=== PATIENT | female | born 1960 | race Caucasian/White ===

== ENCOUNTER 2020-07-14 13:34 | Outpatient (REF) | payer OTHER, SELFPAY ==
--- NOTE | ~2020-07-14 | US_ITS ---
EXAMINATION: ANKLE-BRACHIAL INDICES ARTERIAL DUPLEX BILATERAL LEGS CLINICAL INFORMATION: Peripheral vascular disease. COMPARISON: 07/16/2019. TECHNIQUE: Ankle-brachial indices were obtained. Duplex Doppler of the bilateral lower extremity arterial systems was performed. FINDINGS: RIGHT: Ankle-brachial index: Nondiagnostic. The brachial blood pressure was over 200. Duplex exam: Velocities in cm/sec and phasicity as well as the presence of plaque are reported below. An SFA stent is present. Severe distal runoff is noted in the posterior tibial artery with mild disease elsewhere. Common Femoral: Moderate plaque causing mild stenosis. 177 cm/s. Biphasic waveform. Profunda Femoris: Mild plaque causing mild stenosis. 199 cm/s. Biphasic waveform. Proximal SFA: Patent stent. 122 cm/s. Biphasic waveform. Mid SFA: Patent stent. 64 cm/s. Triphasic waveform. Distal SFA: Patent stent. 116 cm/s. Triphasic waveform. Popliteal: Moderate plaque causing moderate stenosis. 208 cm/s. Triphasic waveform. Posterior Tibial: Occluded. LEFT: Ankle-brachial index: Nondiagnostic. The brachial blood pressure was over 200. Duplex exam: Velocities in cm/sec and phasicity as well as the presence of plaque are reported below. Common Femoral: Mild plaque causing mild stenosis. 161 cm/s. Biphasic waveform. Profunda Femoris: Moderate plaque causing mild to moderate stenosis. 195 cm/s. Biphasic waveform. Proximal SFA: Occluded. Mid SFA: Occluded Distal SFA: Occluded Popliteal: Moderate plaque causing mild stenosis. 236 cm/s. Biphasic waveform. Posterior Tibial: 91 cm/s. Biphasic waveform. There is a femoropopliteal bypass graft. The proximal anastomosis is patent. The proximal, mid, and distal segments of the graft are patent. Mild stenosis at the distal anastomosis. US/US TAWNY complete IMPRESSION: Ankle-brachial indices could not be calculated due to elevated blood pressure over 200. Dr. Parikh's office was notified. Right lower extremity: Patent SFA stent. Moderate popliteal artery disease. Occluded posterior tibial artery. Left lower extremity: Patent femoral popliteal bypass graft with mild stenosis at the distal anastomosis. Mild popliteal and posterior tibial disease.
--- NOTE | ~2020-07-14 | US_ITS ---
EXAMINATION: ANKLE-BRACHIAL INDICES ARTERIAL DUPLEX BILATERAL LEGS CLINICAL INFORMATION: Peripheral vascular disease. COMPARISON: 07/16/2019. TECHNIQUE: Ankle-brachial indices were obtained. Duplex Doppler of the bilateral lower extremity arterial systems was performed. FINDINGS: RIGHT: Ankle-brachial index: Nondiagnostic. The brachial blood pressure was over 200. Duplex exam: Velocities in cm/sec and phasicity as well as the presence of plaque are reported below. An SFA stent is present. Severe distal runoff is noted in the posterior tibial artery with mild disease elsewhere. Common Femoral: Moderate plaque causing mild stenosis. 177 cm/s. Biphasic waveform. Profunda Femoris: Mild plaque causing mild stenosis. 199 cm/s. Biphasic waveform. Proximal SFA: Patent stent. 122 cm/s. Biphasic waveform. Mid SFA: Patent stent. 64 cm/s. Triphasic waveform. Distal SFA: Patent stent. 116 cm/s. Triphasic waveform. Popliteal: Moderate plaque causing moderate stenosis. 208 cm/s. Triphasic waveform. Posterior Tibial: Occluded. LEFT: Ankle-brachial index: Nondiagnostic. The brachial blood pressure was over 200. Duplex exam: Velocities in cm/sec and phasicity as well as the presence of plaque are reported below. Common Femoral: Mild plaque causing mild stenosis. 161 cm/s. Biphasic waveform. Profunda Femoris: Moderate plaque causing mild to moderate stenosis. 195 cm/s. Biphasic waveform. Proximal SFA: Occluded. Mid SFA: Occluded Distal SFA: Occluded Popliteal: Moderate plaque causing mild stenosis. 236 cm/s. Biphasic waveform. Posterior Tibial: 91 cm/s. Biphasic waveform. There is a femoropopliteal bypass graft. The proximal anastomosis is patent. The proximal, mid, and distal segments of the graft are patent. Mild stenosis at the distal anastomosis. US/US arterial duplex LE BI IMPRESSION: Ankle-brachial indices could not be calculated due to elevated blood pressure over 200. Dr. Parikh's office was notified. Right lower extremity: Patent SFA stent. Moderate popliteal artery disease. Occluded posterior tibial artery. Left lower extremity: Patent femoral popliteal bypass graft with mild stenosis at the distal anastomosis. Mild popliteal and posterior tibial disease.
== END 2020-07-14 13:35 | disposition home or self-care (01) ==
LOC: HO.US 13:34
PROVIDERS: Visit Provider Surgery Vascular Surgery
DX: I73.9 Peripheral vascular disease, unspecified (principal)
CPT/HCPCS: 93923; 93925

== ENCOUNTER → 2020-08-19 08:48 | Outpatient (BNVA) | payer OTHER, SELFPAY | PROVIDERS: PCP Physician Assistant Medical; Visit Provider Surgery Vascular Surgery | DX: I73.9 Peripheral vascular disease, unspecified (principal); F17.210 Nicotine dependence, cigarettes, uncomplicated; Z88.6 Allergy status to analgesic agent; Z88.8 Allergy status to other drugs, medicaments and biological substances | CPT/HCPCS: 99212 ==

== ENCOUNTER 2021-09-05 08:13 | Outpatient (REF) | payer OTHER, SELFPAY ==
--- NOTE | ~2021-09-05 | US_ITS ---
EXAMINATION: EXAMINATION: Noninvasive assessment of the arteries of both lower extremities to include a PVR exam limited (1-2 levels) and TAWNY, bilateral. ? Heaven Durham M.D., Ph.D. CLINICAL INFORMATION: Peripheral vascular disease COMPARISON: None TECHNIQUE: The ankle/brachial indices of the distal posterior tibial and the dorsalis pedis arteries were obtained of the lower extremity arterial system bilaterally; along with pressures and pulse volume recordings at the ankle and duplex Doppler techniques of the common femoral, proximal femoral and proximal profunda arteries. The study was performed at rest. ? FINDINGS AT REST:? RIGHT LEG: THE RIGHT ANKLE-BRACHIAL INDEX IS: Nondiagnostic as the brachial artery is greater than 200 cm/s. PVR WAVEFORMS: Ankle: Normal DIRECT DUPLEX: Common femoral artery: 142 cm/sec; multiphasic waveform Profunda artery: 151 cm/sec; multiphasic waveform Superficial femoral artery proximal: 125 cm/sec; multiphasic waveform Superficial femoral artery mid portion: 69.9 cm/sec; multiphasic waveform Superficial femoral artery distal: 112 cm/sec; multiphasic waveform Popliteal artery: 86.8 cm/sec; multiphasic waveform Posterior tibial artery: Occluded Peroneal artery: 134 cm/sec; multiphasic waveform There is a patent stent within the right superficial femoral artery. LEFT LEG: THE LEFT ANKLE-BRACHIAL INDEX IS: Nondiagnostic as the brachial artery is greater than 200 cm/s. PVR WAVEFORMS: Ankle: Normal DIRECT DUPLEX: Common femoral artery: 152 cm/sec; multiphasic waveform Profunda artery: 91.1 cm/sec; multiphasic waveform Superficial femoral artery proximal: Occluded Superficial femoral artery mid portion: Occluded Superficial femoral artery distal: Occluded Popliteal artery: 144 cm/sec; multiphasic waveform Posterior tibial artery: 104 cm/sec; multiphasic waveform Peroneal artery: 122 cm/sec; multiphasic waveform There is a patent femoropopliteal bypass graft. The proximal anastomosis is patent with velocity of 130 cm/s. Where as there was previously demonstrated mild stenosis at the distal aspect of the right pass on the prior study, this is not seen currently where the distal anastomosis measures 70 cm/s and the outflow artery 148 cm/s. ? US/US arterial duplex LE BI IMPRESSION: 1. Unable to calculate ankle brachial indices as the patient's blood pressure in the brachial arteries measure over 200 cm/s. This is unchanged when compared the prior study. 2. Patent right SFA stent. No evidence of in-stent stenosis. 3. Patent left femoropopliteal bypass graft. The prior study demonstrated mild stenosis at the distal anastomosis which is not appreciated on the current study.
== END 2021-09-05 08:14 | disposition home or self-care (01) ==
LOC: HO.US 08:13
PROVIDERS: Visit Provider Surgery Vascular Surgery
DX: I73.9 Peripheral vascular disease, unspecified (principal)
CPT/HCPCS: 93923; 93925

== ENCOUNTER → 2021-09-08 09:47 | Outpatient (BNVA) | payer OTHER, SELFPAY | PROVIDERS: PCP Physician Assistant Medical; Visit Provider Surgery Vascular Surgery | DX: I73.9 Peripheral vascular disease, unspecified (principal) | CPT/HCPCS: 99212 ==

== ENCOUNTER 2021-11-03 16:31 | Outpatient (REF) | payer OTHER, SELFPAY ==
--- NOTE | ~2021-11-03 | XR_ITS ---
EXAMINATION: XR CALCANEUS, RIGHT CLINICAL INFORMATION: Unspecified injury right Achilles tendon. COMPARISON: None. TECHNIQUE: Lateral and axial views of the right calcaneus were obtained. FINDINGS: There are chronic erosive changes involving the retrocalcaneal. No fracture or lytic or sclerotic process seen. There is moderate soft tissue swelling along the retrocalcaneal and calcaneal heel. Also visualized is a soft tissue calcaneal and retrocalcaneal bursa, likely bursitis. The major Achilles tendon is visualized. There is reduction of the ankle mortise and subtalar joint space. XR/XR calcaneus RT min 2V IMPRESSION: Chronic erosive changes along the retrocalcaneal with moderate retrocalcaneal and calcaneal heel soft tissue swelling, likely related to old injury. There is calcification in the retrocalcaneal bursa, especially posterior to the Achilles tendon insertion representing calcific bursitis. The tendon is visualized and likely intact. If clinically indicated, further evaluation with MRI can be performed.
== END 2021-11-03 16:32 | disposition home or self-care (01) ==
LOC: HO.HOSX 16:31
PROVIDERS: Visit Provider Orthopaedic Surgery
DX: S86.001A Unspecified injury of right Achilles tendon, initial encounter (principal)
CPT/HCPCS: 73650; 99212

== ENCOUNTER 2024-05-22 11:08 | Outpatient (AMB) | payer OTHER, SELFPAY ==
--- NOTE | 2024-05-22 11:14 | MHC.OFFVIS ---
Vital Signs 05/22/24 11:16 Height 4 ft 9 in Weight 133 lb BMI 28.8 Intake Visit Reasons: R leg pain Intake Note: pt overdue follow up urgent Right leg pain that started within the past 3 weeks and has worsened. Pt states PCP ordered arterial US @ [facility] on 05/28/24. Pt has Hx of Left fem-pop bypass 07/14/20. Pt states ortho had difficulty getting right foot pedal pulses Apparel Manager Required: No Accompanied by: Self / Same As Patient Allergies MIKAELA Inhibitors Allergy (Intermediate, Verified 05/22/24 11:24) hyperkalemia methadone Allergy (Mild, Verified 05/22/24 11:24) Hives atorvastatin Allergy (Unknown, Verified 05/22/24 11:18) facial swelling, rash propoxyphene [From DARVOCET-N] Allergy (Unknown, Verified 05/22/24 11:18) ITCHY RASH HPI HPI R leg pain: Details: The patient is a 63-year-old female presenting with right leg pain exacerbated over the last three weeks. She previously underwent vascular interventions, including a femoral to popliteal bypass on the left and right superficial femoral artery stenting. Symptoms have now escalated to a point causing significant ambulatory limitations, requiring a walker. Despite topical treatments and intervention from an health support specialist, symptom alleviation is inadequate. Smoking remains a current habit, potentially exacerbating vascular issues, though she denies diabetes. She was lost a follow-up after the loss of her and her grandson. She had not had any medical care for the last 2-3 years. She has new onset right lower extremity pain for the last 2-3 months. Now presents to us for vascular evaluation. [facility] Surgical History S/P debridement (08/29/17) S/P debridement (04/21/17) Status post angioplasty S/P angiogram of extremity History of femoropopliteal bypass Hx of cholecystectomy Family History Father No problems noted. Mother No problems noted. Social History Patient Tobacco Use Status: Current everyday Tobacco user Tobacco use type: Cigarette Cigarettes Per Day: 10 Review of Systems Const All systems reviewed & are unremarkable except as noted in HPI and below Reports no additional complaints ENT Reports Normal hearing present Card Denies chest pain, Denies chest pain at rest, Denies chest pain with activity and Denies pedal edema Resp Denies cough GI Denies abdominal pain Musc Denies abnormal gait, Denies muscle cramps and Denies radiating pain into limb Skin/Breast Denies skin ulcer and Denies wounds Neuro Reports Normal hearing present and Denies abnormal gait Psych Reports no additional complaints Physical Exam Vital Signs: BMI result Body Mass Index 28.8 Const General: cooperative, healthy appearing and comfortable Orientation/consciousness: oriented to person, oriented to place and oriented to time HEENT Head: Yes normal to inspection Neck Neck: Yes normal visual inspection Carotids: no bruits Chest Chest palpation & inspection: normal inspection of the chest Resp Effort & Inspection: normal respiratory effort and able to speak in complete sentences Auscultation: clear to auscultation bilaterally, no crackles, no rales, no rhonchi and no wheezes Cardio Other: Bilateral DP signals Rate: regular rate Rhythm: regular rhythm Heart sounds: S1 normal heart sound present and S2 normal heart sound present Bruits: no carotid bruits Peripheral pulses: Peripheral pulses 2+ throughout GI Inspection: Yes normal to inspection Skin Wounds: no wounds Hair: normal Neuro General: oriented to person, oriented to place and oriented to time Cranial nerves: Yes CN's II-XII intact bilaterally and Yes Normal hearing present Cognition (Neuro): normal cognition Motor exam (neuro): 5/5 motor strength present throughout Extrem Other: venous exam: No significant superficial varicosities or spider telangiectasias, minimal edema General: No clubbing, No cyanosis and No edema Psych Appearance: grossly normal Mental Status: mental status grossly normal Speech and movement: Normal speech and movement present Assessment & Plan Assessment & Plan (1) PAD (peripheral artery disease): Comment: February 2018 - left femoral to above knee popliteal bypass June 2017 - right SFA stent Code(s): I73.9 - Peripheral vascular disease, unspecified Category: Medical Plan: I discussed with the patient the likely ongoing progression of her peripheral vascular disease, emphasizing the need for further vascular imaging. We agreed on the importance of an expedited arterial ultrasound to evaluate her right leg. Risks and benefits related to the planned ultrasound, especially juxtaposed against ongoing lifestyle factors like smoking, were addressed. I provided insights into how the ultrasound results could inform future treatment needs and answered her queries regarding symptom management. She will follow up with us after noninvasive testing. Thank you for allowing us to assist in her care. Orders: Orders US arterial duplex LE BI 1 Day I73.9 - Peripheral vascular disease, unspecified Coding Level of Care Code Est Pt Level 4 (71387) Complex EM visit Add On G2211 Diagnoses PAD (peripheral artery disease) I73.9
[2024-05-22 11:16] VITALS: BMI 28.8
--- OUTSIDE RECORDS SUMMARY | 2024-05-22 13:41 | XMS_ITS | Clinical Summary ---
Author Organization [place] [facility] Address [address] [place] [address] Phone Care Team Providers Care Telemarketer Name Role Phone [facility] Un[facility] [phone] NATI HEAD Primary Care Provider [phone] Reason for Visit and Chief Complaint Post Op Visit/Follow Up Plan of Treatment Pending Tests Order Diagnosis Results Due Ordering P fadia Follow Up - Appointment 1 Month Infct fo l a procedure, deep incisional surgical site, subs 01/11/23 Reed Carey MD Last Documented On 3 10:09AM ; [facility] [place] Assessments Includes: Assessments from this encounter No Assessments Recorded Medical Equipment - Implanted Devices Includes: Current Devices No Medical Equipment Recorded Medications Includes: Medications discussed during this encounter and other current Medications Current Medications (continue as prescribed) Ibuprofen Oral Tablet 08/07/2022 Provider: Diagnosis: Last Documented On 3 8:09AM By Dipak Valerio ; [facility] oxyCODONE HCl 5 MG Oral Capsule 07/10/2022 Provider: Diagnosis: Last Documented On 3 9:18AM By Dipak Valerio ; [facility] [place] Tylenol Oral Tablet 07/10/2022 Provider: Diagnosis: Last Documented On 3 9:18AM By Dipak Valerio ; [facility] [place] Medications Administered Includes: Administered Medications from this encounter No Administered Medications Recorded Results Includes: Results discussed during this encounter No Results Recorded For Specified Dates History of Present Illness Includes: History of Present Illness from this encounter No History of Present Illness Recorded Social History No Social History Recorded - Smoking Status Unknown Medical History Includes: Medical History addressed during this encounter No Medical History Recorded Family History Includes: Family History addressed during this encounter No Family History Recorded Review of Systems Includes: Review of Systems from this encounter No Review of Systems Recorded Mental Status Includes: Mental Status from this encounter No Mental Status Recorded Functional Status Includes: Functional Status from this encounter No Functional Status Recorded Physical Exam Includes: Physical Exam from this encounter Encounters Encounter Provider Location Date Check-In Time Check-Out Time Diagnosis Post Op Visit/Follow Up [facility] 10:00AM 10:19AM Insurance Includes: Active Insurance Policies Plan Name Member ID Group # Subscriber Relationship Effect joleen Dates 1 - [employer] Plan [id number] Soni Toure Clinical Notes Includes: Clinical Notes from this encounter * Progress note Date Encounter Last Documented by 01/11/2023 Post Op Visit/Follow Up Last doc umented on 01/11/2023; 10:09 AM, Reed Carey MD; [place] [facility] Current Medication - Ibuprofen Oral Tablet 0 days, 0 refills - oxyCODONE HCl 5 MG Oral Capsule 0 days, 0 refills - Tylenol Oral Tablet 0 days, 0 refills Physical Findings Chief complaint: Follow-up incision and drainage and removal of hardware right ankle History of Present Illness: This is a 62-year-old woman who had ORIF of her right ankle fracture on 06/25/2022. She had persistent wound drainage and I performed removal of hardware and irrigation and debridement of her right ankle wound on 12/22/2022. She was last seen here on 01/04/2023. Some of the sutures were removed but the distal sutures were left in. Her cultures grew Staph Pseudintermedius sensitive to everything except penicillin. She was discharged on cefazolin 2 g IV every 8 hours for 23 days (through 01/18/23). She has no complaints today. She reports that there has been no drainage from the wound. Physical exam: The right ankle wound appears to be healing well. There is no redness. There is no drainage on the bandage from 3 days ago. Neurovascular exam is intact. Imaging: Radiographs of the right ankle from 01/04/2023 are reviewed. The fracture appears to be healed in satisfactory position. No osteolysis is seen. The medial malleolus fracture was treated nonsurgically and there appears to be a fibrous union of that fracture. There is deformity of the posterior calcaneus from prior infection and treatment. Impression: Status post removal of hardware right ankle with wound infection. Plan: The remaining sutures were removed from the wound today. The patient may discontinue the fracture boot. She may be weightbearing as tolerated. She does not yet have an appointment for follow-up with infectious disease and I asked her to call today to get that appointment. She should see infectious disease before the PICC line is removed. I asked her to follow-up in 1 month or sooner if she develops redness, drainage, pain, etc. Plan StartCited - Infct fol a procedure, deep incisional surgical site, subs Follow Up/Appointment: 1 Month EndCited
--- OUTSIDE RECORDS SUMMARY | 2024-05-22 13:41 | XMS_ITS | Clinical Summary ---
Author Organization [place] [facility] Address [address] [place] [address] Phone Care Team Providers Care Manager Creative Services Name Role Phone [facility] Unavailable [phone] NATI HEAD Primary Care Provider [phone] Reason for Visit and Chief Complaint Post Op Visit/Follow Up Plan of Treatment Pending Tests Order Diagnosis Results Due Ordering P fadia Follow Up - Appointment 1 Month Pain due to internal orthopedic prosth dev/grft, init 01/04/23 Sadia Justice MD Last Documented On 3 9:08AM ; [facility] Follow Up - Appointment 1 Week Pain due to internal orthopedic prosth dev/grft, init 01/04/23 Sadia Justice MD Last Documented On 3 9:08AM ; [facility] Assessments Includes: Assessments from this encounter No Assessments Recorded Medical Equipment - Implanted Devices Includes: Current Devices No Medical Equipment Recorded Medications Includes: Medications discussed during this encounter and other current Medications Current Medications (continue as prescribed) Ibuprofen Oral Tablet 08/07/2022 Provider: Diagnosis: Last Documented On 3 8:09AM By Dipak Valerio ; [facility] oxyCODONE HCl 5 MG Oral Capsule 07/10/2022 Provider: Diagnosis: Last Documented On 3 9:18AM By Dipak Valerio ; [facility] Tylenol Oral Tablet 07/10/2022 Provider: Diagnosis: Last Documented On 3 9:18AM By Dipak Valerio ; [facility] Medications Administered Includes: Administered Medications from this [...] Includes: Review of Systems from this encounter Chief complaint: Follow-up ORIF right ankle History of Present Illness: This is a 62-year-old woman who is s/p ORIF of her right ankle on 06/25/2022. SHANTEL ankle and i&D 12/22/22. pain improved. some swelling. getting IV abx. Physical exam: incision healing but distal part still not fully healed. good rom. no drainage. no erythema. Imaging: Radiographs of the right ankle reviewed Impression: Persistent draining wound right ankle status post ORIF right ankle on 06/25/2022. s/p ROM and I&D Plan: continue IV abx. Weightbearing as tolerated. Transition to a boot today. The proximal part of the incision sutures were removed but the distal part of the sutures were left in. Follow-up in 7 to 10 days for removal of the rest of the sutures and wound check.Keep the area clean and dry and covered. Mental Status Includes: Mental Status from this encounter No Mental Status Recorded Functional Status Includes: Functional Status from this encounter No Functional Status Recorded Physical Exam Includes: Physical Exam from this encounter No Physical Exam Recorded Encounters Encounter Provider Location Date Check-In Time Check-Out Time Diagnosis Post Op Visit/Follow Up Sadia Justice MD [facility] 01/05/20 8:00AM 8:37AM Insurance Includes: Active Insurance Policies Plan Name Member ID Group # Subscriber Relationship Effect joleen Dates 1 - [employer] Plan [id number] Soni Toure Clinical Notes Includes: Clinical Notes from this encounter * Progress note Date Encounter Last Documented by 01/04/2023 Post Op Visit/Follow Up Last doc umented on 01/04/2023; 9:08 AM, Sadia Justice MD; [facility] Plan StartCited - Pain due to internal orthopedic prosth dev/grft, init Follow Up/Appointment: 1 Month, 1 Week EndCited User Defined 4 Chief complaint: Follow-up ORIF right ankle History of Present Illness: This is a 62-year-old woman who is s/p ORIF of her right ankle on 06/25/2022. SHANTEL ankle and i&D 12/22/22. pain improved. some swelling. getting IV abx. Physical exam: incision healing but distal part still not fully healed. good rom. no drainage. no erythema. Imaging: Radiographs of the right ankle reviewed Impression: Persistent draining wound right ankle status post ORIF right ankle on 06/25/2022. s/p ROM and I&D Plan: continue IV abx. Weightbearing as tolerated. Transition to a boot today. The proximal part of the incision sutures were removed but the distal part of the sutures were left in. Follow-up in 7 to 10 days for removal of the rest of the sutures and wound check.Keep the area clean and dry and covered.
--- OUTSIDE RECORDS SUMMARY | 2024-05-22 13:41 | XMS_ITS ---
Author Organization [facility] Address [address] [place] [address] Phone Care Team Providers Care Insulation Cutter Name Role Phone [facility] Unavailable [phone] NATI HEAD Primary Care Provider [phone] Plan of Treatment No Plan of Treatment Recorded Assessments Includes: Assessments for all patient encounters No Assessments Recorded Medical Equipment - Implanted Devices Includes: Current and historical Devices No Medical Equipment Recorded Medications Includes: Current and historical Medications Current Medications (continue as prescribed) Ibuprofen Oral Tablet 08/07/2022 Provider: Diagnosis: Last Documented On 3 8:09AM By Dipak Valerio ; [facility] oxyCODONE HCl 5 MG Oral Capsule 07/10/2022 Provider: Diagnosis: Last Documented On 3 9:18AM By Dipak Valerio ; [facility] Tylenol Oral Tablet 07/10/2022 Provider: Diagnosis: Last Documented On 3 9:18AM By Dipak Valerio ; [facility] Medications Administered Includes: Administered Medications in patient's chart No Administered Medications Recorded Vital Signs Includes: Vital Signs from 05/23/2023 through 05/22/2024 Vital Name 06/07/2023 08:10A Blood Pressure Sitting (mmHg) 177/68 Pulse Rate-Sitting (bpm) 80 Temp-Temporal 97.1 Height (in) 59 Weight (lb) 132 Body Mass Index 26.7 Body Surface Area 1.5 Oxygen Saturation (%) 98 Last Documented: On 06/07/2023 8:10AM ; [facility] Results Includes: Results from 05/23/2023 through 05/22/2024 No Results Recorded For Specified Dates History of Present Illness History of Present Illness not supported for this document type No History of Present Illness Recorded Social History No Social History Recorded - Smoking Status Unknown Procedures and Surgical History Includes: Procedures from 05/23/2023 through 05/22/2024 Procedures Code Diagnosis Performing Provider Service Location Service Date X-Ray Exam Of Ankle, minimum of 3 views (Right) [address] Displaced bimalleolar fracture of right lower leg, init Sadia Justice [facility] 06/07/2023 Last Documented On 10:32AM ; [facility] Medical History Includes: Medical History in patient's chart No Medical History Recorded Family History Includes: Family History in patient's chart No Family History Recorded Review of Systems Review of Systems not supported for this document type No Review of Systems Recorded Mental Status No Mental Status Recorded Functional Status No Functional Status Recorded Physical Exam Physical Exam not supported for this document type No Physical Exam Recorded Encounters Includes: Encounters from 05/23/2023 through 05/22/2024 Encounter Provider Location Date Check-In Time Check-Out Time Diagnosis Established Patient Sadia Justice MD [facility] 024 8:20AM 8:42AM Insurance Includes: Active Insurance Policies Plan Name Member ID Group # Subscriber Relationship Effect joleen Dates 1 - [email or web address] Plan [id number] Sonigayla Stylesmedardo Self Clinical Notes Includes: Signed Clinical Notes starting from 01/15/2022 * Progress note Date Encounter Last Documented by 06/07/2023 Established Patient Alphonso stephanijersey hassan on 06/07/2023; 8:47 AM, Sadia Justice MD; [facility] Physical Findings - Vitals taken 06/07/2023 08:10 am BP-Sitting 177/68 mmHg Pulse Rate-Sitting 80 bpm Temp-Temporal 97.1 F Height 59 in Weight 132 lbs Body Mass Index 26.7 kg/m2 Body Surface Area 1.5 m2 Oxygen Saturation 98 % Plan StartCited - Displaced bimalleolar fracture of right lower leg, init Follow Up/Appointment: PRN EndCited User Defined 4 Chief complaint: Follow-up incision and drainage and removal of hardware right ankle History of Present Illness: This is a 62-year-old woman who had ORIF of her right ankle fracture on 06/25/2022. She had persistent wound drainage and we performed removal of hardware and irrigation and debridement of her right ankle wound on 12/22/2022. She was last seen here on 02/28. She has some persistent pain with walking long distances but has had no redness or wound drainage. Main issue seems to be midfoot pain Physical exam: The right ankle wound is closed. There is no redness or drainage. There is no tenderness. Dorsiflexion is limited to 5 degrees. 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 Impression: Status post ORIF right ankle complicated by wound infection treated with antibiotics, debridement and removal of hardware. Plan: Ankle no longer seems to be the main issue. 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 I would like her to go see the dental technologist for additional care. Follow-up with us as needed.
--- OUTSIDE RECORDS SUMMARY | 2024-05-22 13:41 | XMS_ITS | Clinical Summary ---
Author Organization [facility] Address [address] [place] [address] Phone Care Team Providers Care Landscaper Name Role Phone [facility] Unavailable [phone] NATI HEAD Primary Care Provider [phone] Reason for Visit and Chief Complaint Established Patient Plan of Treatment Pending Tests Order Diagnosis Results Due Ordering P fadia Follow Up - Appointment PRN Displace d bimalleolar fracture of right lower leg, init 06/07/23 Sadia Justice MD Last Documented On 4 8:46AM ; [facility] Assessments Includes: Assessments from this encounter No Assessments Recorded Medical Equipment - Implanted Devices Includes: Current Devices No Medical Equipment Recorded Medications Includes: Medications discussed during this encounter and other current Medications Current Medications (continue as prescribed) Ibuprofen Oral Tablet 08/07/2022 Provider: Diagnosis: Last Documented On 3 8:09AM By Dipak Valerio ; [facility] oxyCODONE HCl 5 MG Oral Capsule 07/10/2022 Provider: Diagnosis: Last Documented On 3 9:18AM By Dipak Valerio ; [facility] Tylenol Oral Tablet 07/10/2022 Provider: Diagnosis: Last Documented On 3 9:18AM By Dipak Valerio ; [facility] Medications Administered Includes: Administered Medications from this encounter No Administered Medications Recorded Vital Signs Includes: Vital Signs from this encounter Vital Name 06/07/2023 08:10A Blood Pressure Sitting (mmHg) 177/68 Pulse Rate-Sitting (bpm) 80 Temp-Temporal 97.1 Height (in) 59 Weight (lb) 132 Body Mass Index 26.7 Body Surface Area 1.5 Oxygen Saturation (%) 98 Last Documented: On 06/07/2023 8:10AM ; [facility], Results Includes: Results discussed during this encounter No Results Recorded For Specified Dates History of Present Illness Includes: History of Present Illness from this encounter No History of Present Illness Recorded Social History No Social History Recorded - Smoking Status Unknown Procedures and Surgical History Includes: Procedures from this encounter Procedures Code Diagnosis Performing Provider Service Location Service Date X-Ray Exam Of Ankle, minimum of 3 views (Right) [address]71 Displaced bimalleolar fracture of right lower leg, brad Sadia Justice MD [facility], 06/07/2023 Last Documented On 4 10:32AM ; [facility], Medical History Includes: Medical History addressed during this encounter No Medical History Recorded Family History Includes: Family History addressed during this encounter No Family History Recorded Review of Systems Includes: Review of Systems from this encounter Chief complaint: Follow-up incision and drainage and [...] would like her to go see the weapons electrical engineering officer for additional care. Follow-up with us as needed. Mental Status Includes: Mental Status from this encounter No Mental Status Recorded Functional Status Includes: Functional Status from this encounter No Functional Status Recorded Physical Exam Includes: Physical Exam from this encounter Encounters Encounter Provider Location Date Check-In Time Check-Out Time Diagnosis Established Patient Sadia Justice MD [facility], 024 8:20AM 8:42AM Insurance Includes: Active Insurance Policies Plan Name Member ID Group # Subscriber Relationship Effect joleen Dates 1 - [place] Plan [id number] Soni Toure Clinical Notes Includes: Clinical Notes from this encounter * Progress note Date Encounter Last Documented by 06/07/2023 Established Patient Last alejandra hassan on 06/07/2023; 8:47 AM, Sadia Justice MD; [facility] Physical Findings - Vitals taken 06/07/2023 [...] would like her to go see the weapons electrical engineering officer for additional care. Follow-up with us as needed.
--- OUTSIDE RECORDS SUMMARY | 2024-05-22 13:41 | XMS_ITS | Clinical Summary ---
Author Organization [address] [facility] Address [address] [place] [address] Phone Care Team Providers Care Operating Room Specialist Name Role Phone Benjamin Escalera Primary Care Provider [phone] Allergies Active Allergy Reactions Criticality Noted Date Comments Martir Inhibitors 06/06/2013 hyperkalemia Atorvastatin 05/13/2018 Facial swelling Hydrochlorothiazide 06/06/2013 hypokalemia Methadone 03/14/2006 Other Reaction(s): Hives/Urticaria Medications lamoTRIgine (LaMICtal) 50 mg dispersible tablet Take by mouth. Active losartan-hydroCHL OROthiazide (HYZAAR) 100-25 mg per tablet Take 1 tablet by mouth 1 (one) time each day. 10/05/19 24 Active fluticasone propionate (FLONASE) 50 mcg/actuation nasal spray 2 sprays to each nostril daily 10/05/19 24 Active clopidogreL (PLAVIX) 75 mg tablet Take 1 tablet (75 mg total) by mouth 1 (one) time each day. 10/05/19 24 Active calcium carbonate 1,500 mg (600 mg elemental calcium) tablet Take 1 Tablet by mouth 2 times daily (with meals). 10/05/19 24 Active amLODIPine (NORVASC) 10 mg tablet Take 1 tablet (10 mg total) by mouth 1 (one) time each day. 10/05/19 24 Active atenoloL (TENORMIN) 50 mg tablet Take 1.5 tablets (75 mg total) by mouth 1 (one) time each day. 10/05/19 24 Active cholecalciferol (VITAMIN D-3) 50 mcg (2,000 unit) tablet Take 1 tablet (2,000 Units total) by mouth 1 (one) time each day. 10/05/19 24 Active rosuvastatin (CRESTOR) 10 mg tablet Take 1 tablet (10 mg total) by mouth 1 (one) time each day. 10/05/19 24 Active celecoxib (CeleBREX) 200 mg capsule Take 1 capsule (200 mg total) by mouth 2 (two) times a day. 10/05/19 24 Active mirtazapine (REMERON) 30 mg tablet 05/23/19 24 Active albuterol HFA (PROAIR HFA ; PROVENTIL HFA ; VENTOLIN HFA) 90 mcg/actuation inhaler Inhale 2 Puffs into the lungs every 4 hours as needed for Wheezing for up to 30 days. 06/03/19 23 Active umeclidinium-luke nteroL (ANORO ELLIPTA) 62.5-25 mcg/actuation inhaler Inhale 1 Puff into the lungs daily. 10/13/19 22 Active ipratropium-albut Paolo (DUONEB) 0.5-2.5 mg/3 mL nebulizer solution Inhale 3 mL into the lungs 4 times daily. 01/12/20 21 Active medical supply, miscellaneous (MISCELLANEOUS MEDICAL SUPPLY MIS) SPACER DEVICE- Use with inhaler 08/18/19 20 Active BABY ASPIRIN ORAL Take 1 Tab by mouth daily. Active ARIPiprazole (ABILIFY) 5 mg tablet Take 1 tablet (5 mg total) by mouth 1 (one) time each day. 02/04/20 24 Active escitalopram (LEXAPRO) 10 mg tablet Take 1 tablet (10 mg total) by mouth 1 (one) time each day. Active LORazepam (ATIVAN) 1 mg tabletIndications :Anxiety and depression,Essent ial hypertension, benign,Hyperchole sterolemia,Obstru ctive sleep apnea,PVD (peripheral vascular disease) ([facility] V24),Tobacco use disorder,Chronic obstructive pulmonary disease, unspecified COPD type ([facility] V24, CMS/HCC V28),Osteopenia, unspecified location Take 1 tablet (1 mg total) by mouth every 8 (eight) hours if needed for anxiety. Max Daily Amount: 3 mg 84 tablet 02/11/19 25 Active nystatin (MYCOSTATIN) 100,000 unit/gram powder Apply to rash under breast 2-3 times a day for 2 weeks 15 g 04/08/19 25 Active ibuprofen (ADVIL,MOTRIN) 800 mg tablet Take 1 tablet (800 mg total) by mouth 3 (three) times a day. 90 each 04/25/19 25 025 Active spironolactone (ALDACTONE) 25 mg tablet TAKE ONE TABLET DAILY 30 tablet 5 05/06/19 25 Active spironolactone (ALDACTONE) 25 mg tablet Take 1 tablet (25 mg total) by mouth 1 (one) time each day. 11/02/19 24 025 Discontinued Hospital, Clinic, or Other Facility Administered Medication Ordered Dose Route Frequency Start Date End Date Status lidocaine (PF) (XYLOCAINE-MPF) 1 % injection 0.5 mLIndications:Arthri tis of right ankle .5 mL inj Once PRN Procedure 05/07/2024 05/07/2024 Ended triamcinolone acetonide (KENALOG-40) 40 mg/mL injection 20 mgIndications:Arthri tis of right ankle 20 mg IAtc Once PRN Procedure 05/07/2024 05/07/2024 Ended Active Problems Problem Noted Date Diagnosed Date PVD (peripheral vascular disease) ([facility] V24) 09/03/2019 Cannabis abuse 02/27/2019 Centrilobular emphysema ([facility] V24, [facility] V2 8) 02/27/2019 Dilated bile duct 03/13/2018 Overview (11/28/2023): [place] to have papillary stenosis related to remote cholecystectomy. Anxiety and depression 08/13/2017 Tobacco use disorder 08/13/2017 Overview (11/28/2023): Last Assessment & Plan: Encouraged cessation Chronic ulcer of right heel ([facility] V24, [facility]/ C V28) 01/02/2017 Overview (11/28/2023): Underlying osteomyelitis, angioplasty with stent, 10/23/2017 Calcaneus fracture, right 11/28/2016 Overview (11/28/2023): CT scan 09/11/2016 Colon polyps 09/01/2016 Alcohol abuse, daily use 05/03/2016 Closed bimalleolar fracture of right ankle 09/29 Overview (11/28/2023): 2014 Obstructive sleep apnea 01/12/2015 COPD (chronic obstructive pu lmonary disease) ([facility] V24, [facility] V28) 10/05/2011 Osteopenia 07/28/2010 Essential hypertension, benign 03/22/2006 Overview (11/28/2023): Last Assessment & Plan: Has follow up appt with Dr. Gaona in August for med adjustment. Allergic rhinitis 03/08/2005 Hypercholesterolemia 03/08/2005 Encounters Date Type Department Care Team Description 05/13/2024 9:30 AM EDT Office Visit Adult Medicine [address] [phone] Alessia Montez PA Essential hypertension, benign (Primary Dx); Hypercholesterolemia; Anxiety and depression; PVD (peripheral vascular disease) ([facility] V24); Leg cramping; Centrilobular emphysema ([facility] V24, [facility] V28); Tobacco use disorder; Alcohol abuse, daily use 05/07/2024 9:15 AM EDT Office Visit Orthopedic Surgery [address] [phone] Kg Paul DPM Posterior tibial tendon dysfunction (PTTD) of right lower extremity (Primary Dx); Arthritis of right ankle; Disorder of ligament of right foot 04/22/2024 Telephone Orthopedic Surgery [facility] [address] [phone] Kg Paul DPM 04/07/2024 9:45 AM EST Office Visit Obstetrics and Gynecology [address] [phone] Radha Sandoval CNM Encounter for annual routine gynecological examination (Primary Dx); Screening mammogram for breast cancer; Cutaneous fungal infection; Tobacco use disorder; Essential hypertension, benign 03/26/2024 9:15 AM EST Office Visit Orthopedic Surgery - [address] [phone] Kg Paul, DPM Arthritis of right ankle (Primary Dx); Neuropathy, alcoholic (CMS/HCC V24); Posterior tibial tendon dysfunction (PTTD) of right lower extremity; Pain in toe of right foot; Pain in toe of left foot; Dermatophytosis of nail; Disorder of ligament of right foot; Corns and callosities from Last 3 Months Immunizations Name Administration Dates Next Due Human Rabies, Human Diploid Cell Culture, (Imovax) 05/25/2016,05/18/2016,05/14/2016,05/11 Influenza Quadravalent, MDCK , 0.5ml, preservative free (Flucelvax) 6mo and older 10/17/2022,10/12/2021,11/11/2020,10/14,09/28/2018,02/11/2018 Influenza Quadravalent, MDCK , 0.5ml, with preservative (Flucelvax) 6mo and older 12/14/2016 Influenza trivalent, 0.5mL ( Fluad) 65yo and older 11/08/2023 Influenza trivalent, 0.5mL, preservative free (Fluarix; FluLaval; Fluzone) ages 6mo and older (Afluria) 3 years and older 11/11/2015,01/12/2015,11/28/2012,02/15,01/07/2010,12/05/2006 Pfizer (ages 12 & older) Biv alent, COVID-19 12/02/2021 Pfizer SARS-CoV-2 COVID-19, mRNA, LNP-S, preservative free 11/03/2022 Pneumococcal conjugate 20 va lent (Prevnar 20, PCV 20) 2mo and older 10/05/2023 Pneumococcal polysaccharide 23 valent (Pneumovax 23) 2yo and older 02/27/2019,07/26/2007 Td Tetanus diptheria (Tdvax) 7yo and older 05/12/2022 Td, Unspecified 03/04/2004 Tdap Tetanus diptheria acell ular pertussis (Boostrix; Adacel) 7yo and older 08/28/2012 Zoster recombinant (Shingrix ) 19yo and older 06/25/2020,12/18/2019 Surgical History Surgery Date Site/Laterality Comments CHOLECYSTECTOMY 1984 PROCEDURE: HISTORICAL CHOLECYSTECTOMY SECTION PROCEDURE: CT DELIVERY ONLY; COMMENT: times 2 OTHER SURGICAL HISTORY 1987 PROCEDURE: CT LIG/TRNSXJ FLP TUBE ABDL/VAG APPR UNI/BI KNEE SURGERY 1973 PROCEDURE: HISTORICAL KNEE SURGERY; COMMENT: left MULTIPLE TOOTH EXTRACTIONS PROCEDURE: HISTORICAL DENTAL EXTRACTION BREAST BIOPSY 2014 Right PROCEDURE: BX BREAST; PERC NEEDLE CORE W/IMAG GUID; COMMENT: b9 COLONOSCOPY 2006 PROCEDURE: HISTORICAL COLONOSCOPY; COMMENT: normal with normal random bx. UPPER GASTROINTESTINAL ENDOSCOPY 2006 PROCEDURE: CT UPPER GI ENDOSCOPY PERFORMED; COMMENT: normal with normal duodenal bx COLONOSCOPY 08/07/2016 PROCEDURE: HISTORICAL COLONOSCOPY; COMMENT: 3 polyps: Tubular adenoma x 1; tubulovillous x 2. Next colonoscopy due 2019. COLONOSCOPY 08/25/2019 PROCEDURE: HISTORICAL COLONOSCOPY; COMMENT: 4 mm polyp: Tubular adenoma ANGIOPLASTY Right PROCEDURE: HISTORICAL ANGIOPLASTY; COMMENT: dr. owen right leg angioplasty OTHER SURGICAL HISTORY Left PROCEDURE: HISTORICAL FEM/POPLITEAL BY; COMMENT: dr. owen left leg FOOT FRACTURE SURGERY Right removal of hardwear Medical History Medical History Date Comments Esophageal reflux 03/08/2005 DX:Esophageal reflux Depressive disorder, not els ewhere classified 03/08/2005 DX:Depressive disorder, not elsewhere classified Pure hypercholesterolemia 03/08/2005 DX:Pur e hypercholesterolemia Headache(784.0) 03/08/2005 DX:Headache(784. 0) Allergic rhinitis, cause unspecified 03/08/2005 DX:Allergic rhinitis, cause unspecified Special screening for malign ant neoplasms, colon 02/15/2006 DX:Special screening for mal ignant neoplasms, colon; COMMENT: Negative colonoscopy 02/15/2006, no colon cancer screening needed for 10 years. Unspecified essential hypertension DX:Unspecified essential hypertension Chronic obstructive lung dis ease ([facility] V24, [facility] V28) 07/26/2007 DX:Chronic obstructive lung disease (HCC) COPD (chronic obstructive pu lmonary disease) ([facility] V24, [facility] V28) 10/05/2011 DX:COPD (chronic o bstructive pulmonary disease) (HCC) Obstructive sleep apnea 01/12/2015 DX:Obstr uctive sleep apnea Family History Medical History Relation Name Comments Other: HIV/AIDS Brother 1 Al Lung cancer Brother 2 Chava No Known Problems Daughter 1 No Known Problems Daughter 2 CABG Father pacemaker Diabetes Maternal Grandmother Hypertension Mother OK, cholesterol Lung cancer Sister 1 Paul Breast cancer Sister 2 Snow Ovarian cancer Sister 2 Snow Breast cancer Sister 3 Martha Ovarian cancer Sister 3 Martha breast cancer with mets Ovarian cancer Sister 4 Smitha Colon cancer Neg Hx Relation Name Status Comments Brother 1 Al Brother 2 Chava Daughter 1 Alive Daughter 2 Alive Father Maternal Grandfather Alive Maternal Grandmother Mother Sister 1 Paul Sister 2 Snow Alive Sister 3 Martha Sister 4 Smitha Alive Social History Tobacco Use Types Packs/Day Years Used Date Smoking Tobacco: Every Day Cigarettes 0.5 40.7 Started: 08/23/1983 Smokeless Tobacco: Never Tobacco Cessation:Ready to Q uit: Not Asked; Counseling Given: Not Answered Alcohol Use Standard Drinks/Week Comments Yes 0 (1 standard drink = 0.6 oz pur e alcohol) Housing Instability Answer Date Recorde d Are you worried that in the next 2 months you may not have stable housing? No 05/13/2024 Food Access & Nutrition Answer Date Rec orded Do you have access to a vari ety of food including fruits and vegetables? Yes 05/13/2024 Access to Healthcare Answer Date Record ed Within the last 3 months, ho w many times did you visit the emergency department for your medical care? 0 05/13/2024 Health Literacy Answer Date Recorded How often do you need to hav e someone help you when you read instructions, pamphlets, or other written material from your doctor or pharmacy? Never 05/13/2024 Caregiver: How often do you need to have someone help you when you read instructions, pamphlets, or other written material from your doctor or pharmacy? Not on file 05/13/2024 Financial Risk Answer Date Recorded How hard is it for you to pa y for the very basics like food, housing, medical care, and air conditioning / heating? Not very hard 05/13/2024 Transportation Answer Date Recorded Has the lack of transportati on kept you from meetings, work, or from getting things needed for daily living? No 04/08/202 5 Has the lack of transportati on kept you from medical appointments or from getting medications? No 05/13/2024 Social Isolation Answer Date Recorded How often do you feel lonely or isolated from th ose around you? Never 05/13/2024 Food Risk Answer Date Recorded Within the past 12 months we worried whether our food would run out before we got money to buy more. Never true 05/13/2024 Within the past 12 months th e food we bought just didn't last and we didn't have money to get more. Never true 05/13/2024 Dependent Care Answer Date Recorded Do you need help finding or paying for care for your loved ones. For example, child support agent or elderly care for an older adult? No 05/13/2024 Education Answer Date Recorded Do you think completing more education or training, like finishing a GED, going to college, or learning a trade, would be helpful for you? No 05/13/2024 Employment and Income Answer Date Recor ded During the last four weeks, have you been actively looking for work? No 05/13/2024 Living Situation Answer Date Recorded What is your living situation? 0 05/13/2024 Comments No Sex and Gender Information Value Date Recorded Sex Assigned at Not on file Legal Sex Female 7:57 PM EST Gender Identity Not on file Sexual Orientation Not on file Obstetrics History Para Term AB IAB SAB Ectopic Multiple Livin g Live Births 2 2 2 0 0 0 0 0 0 2 2 Date Outcome GA Total Labor Labor/2nd/3rd Weight Sex Type Anes PTL Danae A1 A5 Name Clin Term Living Term CS-Un spec Living Last Filed Vital Signs Vital Sign Reading Time Taken Comments Blood Pressure 130/70 05/13/2024 9:50 AM EDT Pulse 61 05/13/2024 9:18 AM EDT Temperature 36.5 ??C (97.7 ??F) 05/13/2024 9:18 AM ED T Respiratory Rate 15 05/13/2024 9:18 AM EDT Oxygen Saturation 98% 05/13/2024 9:18 AM EDT Inhaled Oxygen Concentration - - Weight 64.3 kg (141 lb 12.8 oz) 05/13/2024 9:18 AM EDT Height 149.9 cm (4' 11 ) 05/13/2024 9:18 AM EDT Body Mass Index 28.64 05/13/2024 9:18 AM EDT Plan of Treatment Upcoming Encounters Date Type Department Care Team (Late st Contact Info) Description 06/19/2024 8:45 AM EDT Office Visit Orthopedic Surgery - [place] [address] [phone] Kg Paul, DPM [address] [phone] 11/04/2024 9:00 AM EDT Appointment Radiology Department - [address] [phone] 11/04/2024 10:00 AM EDT Appointment Bone Density - [address] [phone] Health Maintenance Due Date Last Done Comments Hepatitis A Vaccines (1 of 2 - Risk 2-dose series) 1977 RSV Immunization Adult Patients (1 - Risk 60-74 years 1-dose series) 2018 COVID-19 Vaccine ( season) 2023 11/03/2022, 12/02/2021, 01/13/2021, Additional history exists Colorectal Cancer Screening: Colonoscopy 08/24/2024 08/25/2019 Depression Screening 10/04/2024 10/05/2023 Falls Risk Assessment 10/04/2024 10/05/2023 Hypertension/CHF/CAD Annual BMP Blood Test 11/07/2024 11/08/2023, 11/08/2023, 11/02/2023 Lung Cancer Screening (Low Dose CT) 11/20/2024 11/21/2023, 11/21/2023, 11/15/2022, Additional history exists Breast Cancer Screening 11/30/2024 12/01/19 23, 11/25/2021, 11/23/2020, Additional history exists Cervical Cancer Screening: Pap Smear 04/07/2025 04/07/2024, 04/07/2024, 07/24/2019, Additional history exists Social Influencers of Health Screening 05/13/2025 05/13/2024 Osteoporosis Screening (Bone Density Screening) 06/22/2027 06/21/2022 Cholesterol Screening (Lipid Panel) 05/30/2028 05/31/2023 DTaP,Tdap,and Td Vaccines (4 - Td or Tdap) 05/12/2032 05/12/2022, 08/28/2012, 03/04/2004 Hepatitis C Screening Completed 01/12/2015 Zoster Vaccines Completed 06/25/2020, 12/18/2019 Pneumococcal Vaccine: 50+ Years Completed 10/05/2023, 02/27/2019, 07/26/2007 Pneumococcal Vaccine: Pediatrics (0 to 5 Years) and At-Risk Patients (6 to 64 Years) Completed 10/05/2023, 02/27/2019, 07/26/2007 Influenza Vaccine Completed 11/08/2023, , 10/12/2021, Additional history exists HIB Vaccines Aged Out No longer eligi ble based on patient's age to complete this topic HPV Vaccines Aged Out No longer eligi ble based on patient's age to complete this topic Hepatitis B Vaccines Aged Out No long er eligible based on patient's age to complete this topic IPV Vaccines Aged Out No longer eligi ble based on patient's age to complete this topic MMR Vaccines Aged Out No longer eligi ble based on patient's age to complete this topic Meningococcal ACWY Vaccine Aged Out N o longer eligible based on patient's age to complete this topic Meningococcal B Vaccine Aged Out No l onger eligible based on patient's age to complete this topic RSV Immunization Patients Under 20 months Aged Out No longer eligible based on patient's age to complete this topic Varicella Vaccines Aged Out No longer eligible based on patient's age to complete this topic Procedures Procedure Name Priority Date/Time Associated Diagnosis Comments INJECTION TENDON OR LIGAMENT Routine 05/07/2024 9:15 AM EDT Arthritis of right ankle PAP SMEAR Routine 04/07/2024 10:53 AM EST Encounter for annual routine gynecological examination HPV WITH REFLEX GENOTYPE Routine 04/07/2024 10:53 AM EST Encounter for annual routine gynecological examination INJECTION TENDON OR LIGAMENT Routine 03/26/2024 9:15 AM EST Arthritis of right ankle CT LUNG SCREENING LOW DOSE Routine 11/21/2023 11:12 AM EDT Encounter for screening for malignant neoplasm of respiratory organs ANNUAL BMP BLOOD TEST Routine 11/08/2023 DEPRESSION SCREENING Routine 10/05/2023 FALLS RISK ASSESSMENT Routine 10/05/2023 LIPID PANEL Routine 05/31/2023 SCREENING MAMMOGRAPHY BI 2-VIEW BREAST INC CAD Routine 11/30/2022 8:15 AM EDT Encounter for screening mammogram for malignant neoplasm of breast DXA BONE DENSITY STUDY 1+ SITS AXIAL SKEL Routine 06/21/2022 1:36 PM EDT Other specified disorders of bone density and structure, unspecified site COLONOSCOPY Routine 08/25/2019 HEPATITIS C SCREENING Routine 01/12/2015 from Last 3 Months or Most Recently Relevant to Health Maintenance Results * Injection tendon or ligament (05/07/2024 9:15 AM EDT) Kg Daniels DPM - 05/07/2024 9:15 AM EDT Kg Paul DPM ? 05/07/2024 12:59 PM Injection tendon or ligament Indications: pain Details: 25 G needle Medications: 0.5 mL lidocaine (PF) 1 %; 20 mg triamcinolone acetonide 40 mg/mL Informed Consent: ??Site: ??Foot ligament tendon us Kg Paul DPM IN CLINIC/BEDSIDE ORDERAB LES Final Result * HPV with reflex genotype (04/07/2024 10:53 AM EST) HPV Negative Negative LAB MICROBIOLOGY METHOD 04/09/2024 3:03 PM EST [facility] Brushing/Spatula Cervix uteri structure / Unknown 04/07/2024 10:53 AM EST 04/08/2024 6:19 AM EST Radha Sandoval CNM LAB MOLECULAR DIAGNOSTICS ORDER KENNEDY Final Result Performing Organization Address [facility]/ZIP Co de Phone Number [facility] [address] [place] [address], [place] [phone] * Pap smear (04/07/2024 10:53 AM EST) Interpretation Negative for intraepithelial lesion or malignancy 04/09/2024 3:29 PM [facility] General Categorization Negative 04/09/2024 3:29 PM [facility] Specimen Adequacy Satisfactory for evaluation, endocervical/ordoñez sformation zone component absent 04/09/2024 3:29 PM [facility] Pap Methodology Liquid Based Pap Test 04/09/2024 3:29 PM [facility] Disclaimer The Pap test is a screening test which carries an inherent false negative rate. These test results should be correlated with the patient's clinical findings and history. This Pap test was processed using an automated screening system. Technical cytopathology services provided by [facility], at [address] [place] [id number] (CLIA # [id number]/Kuldip Anthony MD, [employer] Guard Supervisor.) 04/09/2024 3:29 PM [facility] Console Pap Interpretation Reported 04/09/2024 3:29 PM [facility] Brushing/Spatula Cervix uteri structure / Unknown 04/07/2024 10:53 AM EST 04/07/2024 10:53 AM EST Radha Sandoval CNM LAB CYTOLOGY ORDERABLES Final R esult [facility] [address] [place] [address], * Injection tendon or ligament (03/26/2024 9:15 AM EST) Kg Daniels DPM - 03/26/2024 9:15 AM EST Kg Paul DPM ? 03/26/2024 ??1:00 PM Injection tendon or ligament Indications: pain Details: 25 G needle Medications: 0.5 mL lidocaine (PF) 1 %; 20 mg triamcinolone acetonide 40 mg/mL Informed Consent: ??Site: ??Foot ligament tendon us Kg Paul DPM IN CLINIC/BEDSIDE ORDERAB LES Final Result * CT LUNG SCREENING LOW DOSE (11/21/2023 11:12 AM EDT) Anatomical Region Laterality Modality Computed Tomogra phy 11/21/2023 7:23 AM EDT Narrative 11/21/2023 11:12 AM EDT [facility] Diagnostic Imaging Department [address] [place] [address] Patient: ??SONI VALDES ?/Age/Sex: 1960 - 63 - F Unit#: ??[id number] ? Location/Status: ??SPDICATLS/REG CLI ? Mnemonic/Ordering Site: ??CTLUNGLD/SPCT Ordering Physician: ??SAM ALVA MD CT Lung Screening Low Dose - 11/21/23 - [id number] Report Status:Signed EXAMINATION: CT CHEST WITHOUT CONTRAST LUNG CANCER SCREENING, LOW DOSE CLINICAL INFORMATION: Lung cancer screening. ??Current smoker. 1 pack per day for 49 years. Secondhand smoke exposure. Questionnaire indicates COPD, emphysema and coronary artery disease. Mother with history of lung cancer COMPARISON: Portions of previous study 11/15/2022 TECHNIQUE: Multidetector CT. Examination of the chest. Examination of the chest without IV contrast. Reformatting in the coronal and sagittal planes. Device: GreenSand DLP: 101 mGy-cm CTDI: 2.85 Dose optimization was performed including the use of low-dose iterative reconstruction technique with automatic exposure control based on patient size. Type of contrast: None Volume of IV contrast: None Volume of contrast discarded: 0 mL FINDINGS: LUNG: No suspicious abnormality of the trachea. At least moderate and possibly severe centrilobular emphysema. There are some centrilobular micronodules. There is some small airway thickening. There are scattered micronodules bilaterally. These are similar to previous. LUNG NODULES: There are no suspicious nodules or masses. There is focal pleural thickening in the periphery of the right lower chest laterally. This is a somewhat curvilinear appearance. This has been present since at least the 2020. This may be minimally more prominent. This should be monitored at the time of annual screening. MEDIASTINUM: ??There are no enlarged mediastinal or hilar lymph nodes. No suspicious abnormalities of the esophagus CARDIAC: The heart is not enlarged. No pericardial fluid or thickening There are moderate coronary calcifications. VASCULAR: There is no thoracic aortic aneurysm. The main pulmonary artery is normal caliber PLEURAL: There is no pleural fluid or pneumothorax. As described there is some curvilinear focal pleural thickening in the periphery of the right lower chest. No underlying bone destruction. AXILLA/CHEST WALL: There are no enlarged axillary lymph nodes. No chest wall mass demonstrated MUSCULOSKELETAL: There is sclerosis associated with the posterior left fourth rib. I suspect callus and a healing fracture. VISUALIZED UPPER ABDOMEN: ??No suspicious abnormality on limited assessment of the visualized upper abdomen. IMPRESSION: Underlying emphysema. No suspicious mass or nodule. Scattered micronodules similar to previous. Minimally progressive curvilinear focal pleural thickening in the periphery of the right lower chest is likely postinflammatory. This should be monitored at the time of annual screening LUNG RADS: Lung-RADS 2: BENIGN S Modifier (Significant or Potentially Significant Findings): None present No suspicious nonpulmonary findings. RECOMMENDATIONS: 12 month screening low dose CT Dictating Physician: ??Merline HUERTA BRET MD Electronically Signed by: ??Merline HUERTA BRET MD Dic Date/Time: ??11/21/23 1058 Sign date/Time: ??11/21/23 1112 Procedure Note Sal Huerta MD - 12/04/2023 [facility] Diagnostic Imaging Department [address] [place] [address] [id number] Patient: SONI VALDES /Age/Sex: 1960 - 63 - F Unit#: [id number] Location/Status: [facility] Mnemonic/Ordering Site: [facility] Ordering Physician: SAM ALVA MD CT Lung Screening Low Dose - 11/21/23 - 0733 Report Status:Signed EXAMINATION: CT CHEST WITHOUT CONTRAST LUNG CANCER SCREENING, LOW DOSE CLINICAL INFORMATION: Lung cancer screening. Current smoker. 1 pack per day for 49 years.Secondhand smoke exposure. Questionnaire indicates COPD, emphysema and coronaryartery disease. Mother with history of lung cancer COMPARISON: Portions of previous study 11/15/2022 TECHNIQUE: Multidetector CT. Examination of the chest. Examination of the chest without IV contrast. Reformatting in the coronal and sagittal planes. Device: Precise Softwareer DLP: 101 mGy-cm CTDI: 2.85 Dose optimization was performed including the use of low-dose iterative reconstruction technique with automatic exposure control based on patientsize. Type of contrast: None Volume of IV contrast: None Volume of contrast discarded: 0 mL FINDINGS: LUNG: No suspicious abnormality of the trachea. At least moderate andpossibly severe centrilobular emphysema. There are some centrilobular micronodules.There is some small airway thickening. There are scattered micronodules bilaterally. These are similar toprevious. LUNG NODULES: There are no suspicious nodules or masses. There is focal pleural thickening in the periphery of the right lowerchest laterally. This is a somewhat curvilinear appearance. This has beenpresent since at least the 2020. This may be minimally more prominent. Thisshould be monitored at the time of annual screening. MEDIASTINUM: There are no enlarged mediastinal or hilar lymph nodes. No suspicious abnormalities of the esophagus CARDIAC: The heart is not enlarged. No pericardial fluid or thickening There are moderate coronary calcifications. VASCULAR: There is no thoracic aortic aneurysm. The main pulmonary arteryis normal caliber PLEURAL: There is no pleural fluid or pneumothorax. As described there issome curvilinear focal pleural thickening in the periphery of the right lowerchest. No underlying bone destruction. AXILLA/CHEST WALL: There are no enlarged axillary lymph nodes. No chestwall mass demonstrated MUSCULOSKELETAL: There is sclerosis associated with the posterior leftfourth rib. I suspect callus and a healing fracture. VISUALIZED UPPER ABDOMEN: No suspicious abnormality on limited assessmentof the visualized upper abdomen. IMPRESSION: Underlying emphysema. No suspicious mass or nodule. Scattered micronodules similar to previous. Minimally progressive curvilinear focal pleural thickening in theperiphery of the right lower chest is likely postinflammatory. This should be monitoredat the time of annual screening LUNG RADS: Lung-RADS 2: BENIGN S Modifier (Significant or Potentially Significant Findings): Nonepresent No suspicious nonpulmonary findings. RECOMMENDATIONS: 12 month screening low dose CT Dictating Physician: Merline HUERTA BRET MD Electronically Signed by: Merline HUERTA BRET MD Dic Date/Time: 11/21/23 1059 Sign date/Time: 11/21/23 1112 Sam Alva MD IMG CT PROCEDURES Final Result * Annual BMP Blood Test (11/08/2023) Pathologist [facility] Annual BMP Blood Test abstracted Result Critical access hospital [facility]INTENANCE Final Result * Falls Risk Assessment (10/05/2023) [facility] Falls Risk Assessment abstracted Result Critical access hospital [facility] Final Result * Depression Screening (10/05/2023) Pathologist [facility] Depression Screening abstracted Result [facility] Final Result * (ABNORMAL) Lipid panel (05/31/2023) [facility] LDL/HDL Ratio 4 0 - 4 Triglycerides 141 0 - 150 mg/dL Cholesterol 177 0 - 200 mg/dL HDL 42 >=40 mg/dL LDL Cholesterol 107(A) 0 - 100 mg/dL Blood Venous blood specimen / Unknown Result [facility] LAB BLOOD ORDERABLES Luz l Result * SCREENING MAMMOGRAPHY BI 2-VIEW BREAST INC CAD (11/30/2022 8:15 AM EDT) Anatomical Region Laterality Modality Radiographic Alba ging 11/25/2021 8:09 AM EDT Narrative 11/30/2022 12:02 PM EDT This is a summary report. The complete report is available in the patient's medical record. If you cannot access the medical record, please contact the sending organization for a detailed fax or copy. Full field digital screening tomosynthesis mammography, reviewed with CAD and compared to previous. The breast tissue is heterogeneously dense, limiting sensitivity. No suspicious mass, architectural distortion or suspicious calcifications are identified. IMPRESSION: : Dense breast tissue, limiting the sensitivity of mammography. No mammographic evidence of malignancy. BIRADS 1-Negative; N. 5 year breast cancer risk assessment 7.7 % Lifetime breast cancer risk assessment 27.6 % Breast cancer risk category High (>20%) Procedure Note Lars Hernandez MD - 03/13/2023 This is a summary report. The complete report is available in thepatient's medical record. If you cannot access the medical record, pleasecontact the sending organization for a detailed fax or copy. Full field digital screening tomosynthesis mammography, reviewed with CADand compared to previous. The breast tissue is heterogeneously dense,limiting sensitivity. No suspicious mass, architectural distortion orsuspicious calcifications are identified. IMPRESSION: : Dense breast tissue, limiting the sensitivity of mammography. Nomammographic evidence of malignancy. BIRADS 1-Negative; N. 5 year breast cancer risk assessment 7.7 % Lifetime breast cancer risk assessment 27.6 % Breast cancer risk category High (>20%) us Benjamin [facility] IMG XR PROCEDURES Final R esult * DXA BONE DENSITY STUDY 1+ SITS AXIAL SKEL (06/21/2022 1:36 PM EDT) Anatomical Region Laterality Modality Bone Densitometr y 11/28/2021 2:28 PM EDT Narrative 06/21/2022 2:49 PM EDT BONE DENSITY (DEXA) ? Lumbar Spine T-score is 0.0. ?? (SD relative to 20-29 y/o adult) Z-score is 1.7. ??(SD relative to age matched peers) This is considered normal by WHO criteria. Left Hip T-score is -3.5. Z-score is -2.0. This is considered osteoporosis by WHO criteria. IMPRESSION: This patient is considered to have osteoporosis by WHO criteria. The [facility] Department of Internal Medicine recommends using National Osteoporosis Foundation (NOF) guidelines in treatment decisions related to osteoporosis. NOF guidelines suggest considering treatment for postmenopausal women and men aged 50 or older presenting with the following: History of hip or vertebral fracture. T-score = -2.5 (DXA) at the femoral neck, total hip, or spine, after appropriate evaluation to exclude secondary causes. Low bone mass (T-score between -1.0 and -2.5 at the femoral neck or spine) AND a 10-year probability of a hip fracture = 3% OR a 10-year probability of a major osteoporosis-related fracture = 20% based on the [place]-adapted WHO algorithm Please note that all treatment decisions require clinical judgment and consideration of individual patient factors, including patient preferences, co-morbidities, previous drug use, risk factors not captured in the FRAX model (e.g., frailty, falls, vitamin D deficiency, increased bone turnover, interval significant decline in bone density) and possible under- or over-estimation of fracture risk by FRAX. Optional alternative screening schedule based on amber Rodriguez., [facility] February 23, 2011 for patients with osteopenia (based on hip BMD T-score) is as follows: * ??advanced osteopenia (T scores -2.00 to -2.49), BMD testing every year * ??moderate osteopenia (T scores -1.50 to -1.99), BMD testing every 5 years mild osteopenia or normal BMD (T scores -1.50 and higher), BMD testing every 15 years Procedure Note Essie Rehman MD - 03/13/2023 BONE DENSITY (DEXA) Lumbar Spine T-score is 0.0. (SD relative to 20-29 y/o adult) Z-score is 1.7. (SD relative to age matched peers) This is considered normal by WHO criteria. Left Hip T-score is -3.5. Z-score is -2.0. This is considered osteoporosis by WHO criteria. IMPRESSION: This patient is considered to have osteoporosis by WHO criteria. The [facility] Department of Internal Medicine recommendsusing National Osteoporosis Foundation (NOF) guidelines in treatment decisions related toosteoporosis. NOF guidelines suggest considering treatment for postmenopausal women and menaged 50 or older presenting with the following: History of hip or vertebral fracture. T-score = -2.5 (DXA) at the femoral neck, total hip, or spine, afterappropriate evaluation to exclude secondary causes. Low bone mass (T-score between -1.0 and -2.5 at the femoral neck or spine)AND a 10-year probability of a hip fracture = 3% OR a 10-year probability of a majorosteoporosis-related fracture = 20% based on the [place]-adapted WHO algorithm Please note that all treatment decisions require clinical judgment andconsideration of individual patient factors, including patient preferences, co- morbidities,previous drug use, risk factors not captured in the FRAX model (e.g., frailty, falls, vitaminD deficiency, increased bone turnover, interval significant decline in bone density) andpossible under- or over-estimation of fracture risk by FRAX. Optional alternative screening schedule based on amber Rodriguez., NEJMJanuary 2011 for patients with osteopenia (based on hip BMD T-score) is as follows: * advanced osteopenia (T scores -2.00 to -2.49), BMD testing every year * moderate osteopenia (T scores -1.50 to -1.99), BMD testing every 5years mild osteopenia or normal BMD (T scores -1.50 and higher), BMD testingevery 15 years Aaron Guerrero DO IMG DXA PROCEDURES Final Resu lt * Colonoscopy (08/25/2019) Pathologist [facility] Colonoscopy no interpretation , abstracted Anatomical Region Laterality Modality Other Historical Provider HEALTH MAINTENANCE Final Result * Hepatitis C Screening (01/12/2015) [facility] Hepatitis C Screening abstracted Historical Provider HEALTH MAINTENANCE Final Result from Last 3 Months or Most Recently Relevant to Health Maintenance Insurance [employer] Advance Directives Documents on File Type Date Recorded 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
--- OUTSIDE RECORDS SUMMARY | 2024-05-22 13:41 | XMS_ITS ---
Care Plan - [facility] Created on: May 22, 2024 Soni Sharma : 1960 Sex: Female Author Organization [facility] Address [address] [place] [address] Phone Care Team Providers Care Metal Moulder Name Role Phone [facility] Unavailable [phone] NATI HEAD Primary Care Provider [phone]
--- OUTSIDE RECORDS SUMMARY | 2024-05-22 13:42 | XMS_ITS | Clinical Summary ---
Author Organization [facility] Address [address] [place] [address] Phone Care Team Providers Care Early Head Start Teacher Name Role Phone [facility] Unavailable [phone] NATI HEAD Primary Care Provider [phone] Reason for Visit and Chief Complaint History and Physical Plan of Treatment No Plan of Treatment Recorded Assessments Includes: Assessments from this encounter No Assessments Recorded Medical Equipment - Implanted Devices Includes: Current Devices No Medical Equipment Recorded Medications Includes: Medications discussed during this encounter and other current Medications Current Medications (continue as prescribed) Ibuprofen Oral Tablet 08/07/2022 Provider: Diagnosis: Last Documented On 3 8:09AM By Dipak Valerio ; [facility] oxyCODONE HCl 5 MG Oral Capsule 07/10/2022 Provider: Diagnosis: Last Documented On 3 9:18AM By Dipak Valerio ; [facility] Tylenol Oral Tablet 07/10/2022 Provider: Diagnosis: Last Documented On 3 9:18AM By Dipak Valerio ; [facility] Medications Administered Includes: Administered Medications from this [...] complaint: Follow-up ORIF right ankle History of present illness: The patient is a 62-year-old female with a past medical history significant for hypertension, hypercholesterolemia, PVD, emphysema, anxiety, depression, right calcaneus fracture that subsequently developed osteomyelitis who is status post ORIF right ankle by Dr. Carey on 06/25/2022. Patient has been followed postoperatively for a nonhealing wound. She was seen in the office today and noted to have 2 remaining pinpoint openings in the skin with serous drainage. Patient has been doing local wound care. She reports intermittent burning sensation in the right ankle. Due to the nonhealing wounds, surgery was discussed with the patient for right ankle hardware removal which she has agreed to. Allergies: MIKAELA inhibitors, propoxyphene Medications: Vitamin D3 1.25 mg weekly Fosamax 70 mg weekly Ativan 1 mg Q6H PRN anxiety Calcium carbonate 600 mg BID with meals Losartan-hydrochlorothiazide 100-25 mg daily Crestor 10 mg daily Seroquel 25 mg at bedtime Atenolol 50 mg daily Lexapro 20 mg daily Albuterol sulfate 80 mcg 2 puffs Q4H PRN wheezing Plavix 75 mg daily Fluticasone 50 mcg nasal spray 2 sprays each nostril daily Umeclidinium-Vilanterol 62.5-25 mcg INH 1 puff daily DuoNeb 0.5-2.5 (3) mg/3Ml solution INH QID Aspirin 81 mg daily Past medical history: Hypertension Hypercholesterolemia Osteopenia COPD ULISES Allergic rhinitis Anxiety Depression PVD Right calcaneus fracture, 2016 Right calcaneous osteomyelitis, 2016 Past surgical history: Femoral-popliteal bypass surgery left side Angioplasty right leg section x2 Tubal ligation Cholecystectomy Social history: Smokes 8 cigarettes/day x 30 years. Drinks 2 beers daily. Denies illicit drug use. Lives at home with her daughter. Ambulates independently. Review of Systems: CONSTITUTIONAL: Denies chills, fever, lightheadedness, dizziness. SKIN: Denies rashes, lesions, pruritis. HEENT: Denies headache, vision changes, sore throat. CARDIOVASCULAR: Denies chest pain. RESPIRATORY: Denies cough, SOB. GASTROINTESTINAL: Reports flatus. Denies nausea, vomiting, abdominal pain, constipation, diarrhea. GENITOURINARY: Voiding freely. MUSCULOSKELETAL: Reports right ankle burning sensation. Denies right ankle pain. NEUROLOGICAL: Denies numbness, tingling, head trauma, LOC. PSYCHIATRIC: Reports anxiety. Physical Exam: GENERAL: Well-appearing, calm, cooperative, nontoxic appearing female. In no acute distress. SKIN: Warm, dry. No rashes. HEENT: Normocephalic, atraumatic. PERRLA, EOMI. Neck supple. CARDIAC: Regular rate and rhythm. No murmur, rubs or gallops. No peripheral edema. PULMONARY: Clear to auscultation bilaterally. No wheezes, rales, or rhonchi. ABDOMINAL: soft, nontender, positive bowel sounds. : Deferred. MUSCULOSKELETAL: Right lower extremity: The lateral ankle wound is completely closed except for 2 pinpoint openings about 1 cm apart and the distal end of the incision. No erythema or increased warmth. Nontender palpation throughout right ankle. Small amount of serous drainage on the Band-Aid. Skin is otherwise closed. Toes warm and well-perfused. NEURO: Awake, alert and oriented X 3. PSYCHIATRIC: Normal affect, fluid speech, good eye contact and appropriate demeanor. Diagnostic imaging: Radiographic images of the right ankle from 09/21/2022 are reviewed. There is a fracture of the distal fibula that appears to be healed. The medial malleolus avulsion fracture is healed by fibrous union without widening of the ankle mortise. There is deformity of the posterior calcaneal tuberosity from her prior wound infection in the area. Labs: On 10/26/2022, WBC 8600. On 09/22/2022, ESR 19, CRP 0.67. Assessment: Persistent drainage wound right ankle status post ORIF right ankle by Dr. Carey on 06/25/2022. History of prior right posterior calcaneal infection Plan: Dr. Carey has discussed the findings with the patient. There is concern for chronic infection resulting in persistent drainage. She has poor skin healing capability. Dr. Carey discussed the options of continued nonsurgical versus surgical treatment. Surgery would consist of removal of hardware, debridement and wound culture followed by institution of appropriate antibiotics and consultation with infectious disease. The patient would like to proceed with surgical treatment. Dr. Carey described the surgical procedure its risks and complications in detail including scar, persistent or worsening infection, pain, stiffness, weakness, nerve or blood vessel damage, blood clot, need for further surgery, anesthetic risk, etc. The patient understands and agrees to that treatment. Surgical intervention is planned for 12/22/2022. She will be admitted as an inpatient that day and will receive antibiotic treatment after removal of the hardware pending cultures and infectious disease consultation. The patient understands and agrees with the above-stated plan. This case has been discussed with and patient also seen by Dr. Carey. Mental Status Includes: Mental Status from this encounter No Mental Status Recorded Functional Status Includes: Functional Status from this encounter No Functional Status Recorded Physical Exam Includes: Physical Exam from this encounter No Physical Exam Recorded Encounters Encounter Provider Location Date Check-In Time Check-Out Time Diagnosis History and Physical Bela [facility] 12/12/2022 3:16PM 11:59PM Insurance Includes: Active Insurance Policies Plan Name Member ID Group # Subscriber Relationship Effect joleen Dates 1 - 51 Give Plan [id number] Soni Toure Clinical Notes Includes: Clinical Notes from this encounter * Progress note Date Encounter Last Documented by 12/12/2022 History and Physical Last docume nted on 12/12/2022; 3:25 PM, Beal [facility]; [facility], User Defined 4 Chief complaint: Follow-up ORIF right ankle History of present illness: The patient is a 62-year-old female with a past medical history significant for hypertension, hypercholesterolemia, PVD, emphysema, anxiety, depression, right calcaneus fracture that subsequently developed osteomyelitis who is status post ORIF right ankle by Dr. Carey on 06/25/2022. Patient has been followed postoperatively for a nonhealing wound. She was seen in the office today and noted to have 2 remaining pinpoint openings in the skin with serous drainage. Patient has been doing local wound care. She reports intermittent burning sensation in the right ankle. Due to the nonhealing wounds, surgery was discussed with the patient for right ankle hardware removal which she has agreed to. Allergies: MIKAELA inhibitors, propoxyphene Medications: Vitamin D3 1.25 mg weekly Fosamax 70 mg weekly Ativan 1 mg Q6H PRN anxiety Calcium carbonate 600 mg BID with meals Losartan-hydrochlorothiazide 100-25 mg daily Crestor 10 mg daily Seroquel 25 mg at bedtime Atenolol 50 mg daily Lexapro 20 mg daily Albuterol sulfate 80 mcg 2 puffs Q4H PRN wheezing Plavix 75 mg daily Fluticasone 50 mcg nasal spray 2 sprays each nostril daily Umeclidinium-Vilanterol 62.5-25 mcg INH 1 puff daily DuoNeb 0.5-2.5 (3) mg/3Ml solution INH QID Aspirin 81 mg daily Past medical history: Hypertension Hypercholesterolemia Osteopenia COPD ULISES Allergic rhinitis Anxiety Depression PVD Right calcaneus fracture, 2017 Right calcaneous osteomyelitis, 2017 Past surgical history: Femoral-popliteal bypass surgery left side Angioplasty right leg section x2 Tubal ligation Cholecystectomy Social history: Smokes 8 cigarettes/day x 30 years. Drinks 2 beers daily. Denies illicit drug use. Lives at home with her daughter. Ambulates independently. Review of Systems: CONSTITUTIONAL: Denies chills, fever, lightheadedness, dizziness. SKIN: Denies rashes, lesions, pruritis. HEENT: Denies headache, vision changes, sore throat. CARDIOVASCULAR: Denies chest pain. RESPIRATORY: Denies cough, SOB. GASTROINTESTINAL: Reports flatus. Denies nausea, vomiting, abdominal pain, constipation, diarrhea. GENITOURINARY: Voiding freely. MUSCULOSKELETAL: Reports right ankle burning sensation. Denies right ankle pain. NEUROLOGICAL: Denies numbness, tingling, head trauma, LOC. PSYCHIATRIC: Reports anxiety. Physical Exam: GENERAL: Well-appearing, calm, cooperative, nontoxic appearing female. In no acute distress. SKIN: Warm, dry. No rashes. HEENT: Normocephalic, atraumatic. PERRLA, EOMI. Neck supple. CARDIAC: Regular rate and rhythm. No murmur, rubs or gallops. No peripheral edema. PULMONARY: Clear to auscultation bilaterally. No wheezes, rales, or rhonchi. ABDOMINAL: soft, nontender, positive bowel sounds. : Deferred. MUSCULOSKELETAL: Right lower extremity: The lateral ankle wound is completely closed except for 2 pinpoint openings about 1 cm apart and the distal end of the incision. No erythema or increased warmth. Nontender palpation throughout right ankle. Small amount of serous drainage on the Band-Aid. Skin is otherwise closed. Toes warm and well-perfused. NEURO: Awake, alert and oriented X 3. PSYCHIATRIC: Normal affect, fluid speech, good eye contact and appropriate demeanor. Diagnostic imaging: Radiographic images of the right ankle from 09/21/2022 are reviewed. There is a fracture of the distal fibula that appears to be healed. The medial malleolus avulsion fracture is healed by fibrous union without widening of the ankle mortise. There is deformity of the posterior calcaneal tuberosity from her prior wound infection in the area. Labs: On 10/26/2022, WBC 8600. On 09/22/2022, ESR 19, CRP 0.67. Assessment: Persistent drainage wound right ankle status post ORIF right ankle by Dr. Carey on 06/25/2022. History of prior right posterior calcaneal infection Plan: Dr. Carey has discussed the findings with the patient. There is concern for chronic infection resulting in persistent drainage. She has poor skin healing capability. Dr. Carey discussed the options of continued nonsurgical versus surgical treatment. Surgery would consist of removal of hardware, debridement and wound culture followed by institution of appropriate antibiotics and consultation with infectious disease. The patient would like to proceed with surgical treatment. Dr. Carey described the surgical procedure its risks and complications in detail including scar, persistent or worsening infection, pain, stiffness, weakness, nerve or blood vessel damage, blood clot, need for further surgery, anesthetic risk, etc. The patient understands and agrees to that treatment. Surgical intervention is planned for 12/22/2022. She will be admitted as an inpatient that day and will receive antibiotic treatment after removal of the hardware pending cultures and infectious disease consultation. The patient understands and agrees with the above-stated plan. This case has been discussed with and patient also seen by Dr. Carey.
--- OUTSIDE RECORDS SUMMARY | 2024-05-22 13:42 | XMS_ITS | Clinical Summary ---
Author Organization [facility] Address [address] [place] [address] Phone Care Team Providers Care Nsh Teacher Name Role Phone [facility] Un[facility] [phone] NATI HEAD Primary Care Provider [phone] Reason for Visit and Chief Complaint Post Op Visit/Follow Up Plan of Treatment Pending Tests Order Diagnosis Results Due Ordering P fadia Follow Up - Appointment PRN Infct fo l a procedure, deep incisional surgical site, subs 02/15/23 Reed Carey MD Last Documented On 4 8:18AM ; [facility] Assessments Includes: Assessments from this encounter No Assessments Recorded Medical Equipment - Implanted Devices Includes: Current Devices No Medical Equipment Recorded Medications Includes: Medications discussed during this encounter and other current Medications Current Medications (continue as prescribed) Ibuprofen Oral Tablet 08/07/2022 Provider: Diagnosis: Last Documented On 3 8:09AM By Dipak Valerio ; [facility] oxyCODONE HCl 5 MG Oral Capsule 07/10/2022 Provider: Diagnosis: Last Documented On 3 9:18AM By Dipak Valerio ; [facility] Tylenol Oral Tablet 07/10/2022 Provider: Diagnosis: Last Documented On 3 9:18AM By Dipak Valerio ; [facility] Medications Administered Includes: Administered Medications from this [...] Post Op Visit/Follow Up [facility] 02/15/19 24 8:20AM 8:14AM Insurance Includes: Active Insurance Policies Plan Name Member ID Group # Subscriber Relationship Effect joleen Dates 1 - [employer] Plan [id number] Soni Toure Clinical Notes Includes: Clinical Notes from this encounter * Progress note Date Encounter Last Documented by 02/15/2023 Post Op Visit/Follow Up Last doc umented on 02/15/2023; 8:18 AM, Reed Carey MD; [facility] Current Medication - Ibuprofen Oral Tablet [...] 12/22/2022. She was last seen here on 01/11/2023. The remaining sutures were removed at that time and the fracture boot was discontinued. I asked her to follow-up with infectious disease and to follow-up with me in 1 month. She saw infectious disease and no further treatment was recommended. She has some persistent pain with walking long distances but has had no redness or wound drainage. Physical exam: The right ankle wound is closed. There is no redness or drainage. There is no tenderness. Dorsiflexion is limited to 0 degrees. Neurovascular exam is intact. Imaging: She does have moderate degenerative changes of the ankle joint seen radiographically from 01/04/2023. Impression: Status post ORIF right ankle complicated by wound infection treated with antibiotics, debridement and removal of hardware. Plan: The patient may increase her activity to tolerance and return to the office as needed. She should avoid shoes that cause pressure over the lateral malleolus since the skin is thin in that area and somewhat scarred down to the distal fibula. Plan StartCited - Infct fol a procedure, deep incisional surgical site, subs Follow Up/Appointment: PRN EndCited
== END 2024-05-22 11:35 | disposition home or self-care (01) ==
PROVIDERS: PCP Physician Assistant Medical; Visit Provider Surgery Vascular Surgery
DX: I73.9 Peripheral vascular disease, unspecified (principal)
CPT/HCPCS: 99214; G2211

== ENCOUNTER → 2024-05-22 11:08 | Outpatient (BNVA) | payer OTHER, SELFPAY | PROVIDERS: PCP Physician Assistant Medical; Visit Provider Surgery Vascular Surgery | DX: I73.9 Peripheral vascular disease, unspecified (principal) | CPT/HCPCS: 99212 ==

== ENCOUNTER 2024-05-29 12:12 | Outpatient (REF) | payer OTHER, SELFPAY ==
--- NOTE | ~2024-05-29 | US_ITS ---
EXAMINATION: Noninvasive assessment of the bilateral lower extremities with ARTERIAL DUPLEX, ANKLE BRACHIAL INDICES (ABIs), and PULSE VOLUME RECORDINGS (PVRs). DOPPLER ARTERIAL SPECTRAL ANALYSIS ABDOMINAL AORTA AND ILIAC ARTERIES. CLINICAL INFORMATION: Right femoral artery stent. Left femoral popliteal bypass graft. Peripheral vascular disease. TECHNIQUE: Duplex Doppler techniques with waveform analysis and measurement of velocities in the bilateral common femoral, profunda femoris, superficial femoral, popliteal and tibial arteries were performed. Additionally, ankle pulse volume recordings, ankle pressure measurements and ankle brachial indices were obtained of the lower extremity arterial system bilaterally. The study was performed only at rest. COMPARISON: September 05, 2021. FINDINGS: DIRECT DUPLEX DOPPLER FINDINGS: RIGHT LEG: Common femoral artery: 109 cm/s, phasicity: Biphasic. Profunda femoris artery: 144 cm/s, phasicity: Monophasic. Superficial femoral artery (proximal): Stent: Patent 51 cm/s, phasicity: Biphasic. Superficial femoral artery (mid): Stent 39 cm/s, phasicity: Monophasic. Superficial femoral artery (distal):Stent 47 cm/s, phasicity: Monophasic. Popliteal artery: 80 cm/s, phasicity: Monophasic. Posterior tibial artery: 7 cm/s, phasicity: Monophasic and reversal. Peroneal artery: No color Doppler flow. cm/s, phasicity: Anterior tibial artery: 22 cm/s, phasicity: Monophasic. Dorsalis pedis artery: 32 cm/s, phasicity:Monophasic. Right femoral artery stent: [place] artery: 51 cm/s. Triphasic. Proximal stent: 53 cm/s. Monophasic. Mid stent: 39 cm/s. Biphasic. Distal stent: 96 cm/s. Triphasic. [place] artery distal: 47 cm/s. Biphasic. LEFT LEG: Common femoral artery: 109 cm/s, phasicity: Monophasic. Profunda femoris artery: 126 cm/s, phasicity: Monophasic Superficial femoral artery (proximal): Bypass Superficial femoral artery (mid): Bypass Superficial femoral artery (distal): Bypass Popliteal artery: 42 cm/s, phasicity: Monophasic. Posterior tibial artery: 34 cm/s, phasicity: Monophasic. Peroneal artery: No color Doppler flow. Anterior tibial artery: 44 cm/s, phasicity: Monophasic. Dorsalis pedis artery: 57 cm/s, phasicity: Biphasic. Femoral popliteal bypass graft: Inflow artery: 97 cm/s. Monophasic waveform. Proximal anastomosis site: 63 cm/s. Monophasic waveform. Proximal bypass graft: 30 cm/s. Monophasic. Mid bypass graft: 36 cm/s. Monophasic. Distal bypass graft: 37 cm/s. Biphasic. Distal anastomosis: 81 cm/s. Monophasic. Outflow artery: 106 cm/s. Monophasic. BRACHIAL PRESSURES: Right: 141 Left: 113 ANKLE PRESSURES: Right: PT 80, DP 82 Left: PT 79, DP 80 ANKLE-BRACHIAL INDEX: Right: 0.58 Left: 0.57 ANKLE PVR WAVEFORMS: Right: Abnormal Left: Abnormal ABDOMINAL AORTA: Proximal segment: 49 cm/s and a 2.4 cm maximum diameter. Mid segment: 47 cm/s and 1.7 cm in maximum diameter. Distal segment: 43 cm/s and 1.4 cm in maximum diameter. RIGHT ILIAC ARTERY: Common iliac artery: Not seen. External iliac artery: 125 cm/s. LEFT ILIAC ARTERY: Common iliac artery: Not seen. External iliac artery: 127 cm/s. US/US abdominal aortic aneurysm IMPRESSION: Right leg: Severe inflow disease throughout the interrogated vessels. Stent is patent with waveform variations. Left leg: Severe inflow disease throughout the interrogated vessels. Femoropopliteal Bypass is patent with inflow disease. TAWNY Reference: - >1.4 = calcified vessels - 0.9 - 1.4 = normal - no significant arterial disease - 0.7 - 0.89 = mild peripheral arterial disease - 0.51 - 0.69 = moderate peripheral arterial disease - d 0.50 = severe peripheral arterial disease - < .30 = critical arterial disease Electronically signed by: Shreyas Moran MD 05/30/2024 08:38 AM EDT
--- NOTE | ~2024-05-29 | US_ITS ---
EXAMINATION: Noninvasive assessment of the bilateral lower extremities with ARTERIAL DUPLEX, ANKLE BRACHIAL INDICES (ABIs), and PULSE VOLUME RECORDINGS (PVRs). DOPPLER ARTERIAL SPECTRAL ANALYSIS ABDOMINAL AORTA AND ILIAC ARTERIES. CLINICAL INFORMATION: Right femoral artery stent. Left femoral popliteal bypass graft. Peripheral vascular disease. TECHNIQUE: Duplex Doppler techniques with waveform analysis and measurement of velocities in the bilateral common femoral, profunda femoris, superficial femoral, popliteal and tibial arteries were performed. Additionally, ankle pulse volume recordings, ankle pressure measurements and ankle brachial indices were obtained of the lower extremity arterial system bilaterally. The study was performed only at rest. COMPARISON: September 05, 2021. FINDINGS: DIRECT DUPLEX DOPPLER FINDINGS: RIGHT LEG: Common femoral artery: 109 cm/s, phasicity: Biphasic. Profunda femoris artery: 144 cm/s, phasicity: Monophasic. Superficial femoral artery (proximal): Stent: Patent 51 cm/s, phasicity: Biphasic. Superficial femoral artery (mid): Stent 39 cm/s, phasicity: Monophasic. Superficial femoral artery (distal):Stent 47 cm/s, phasicity: Monophasic. Popliteal artery: 80 cm/s, phasicity: Monophasic. Posterior tibial artery: 7 cm/s, phasicity: Monophasic and reversal. Peroneal artery: No color Doppler flow. cm/s, phasicity: Anterior tibial artery: 22 cm/s, phasicity: Monophasic. Dorsalis pedis artery: 32 cm/s, phasicity:Monophasic. Right femoral artery stent: [place] artery: 51 cm/s. Triphasic. Proximal stent: 53 cm/s. Monophasic. Mid stent: 39 cm/s. Biphasic. Distal stent: 96 cm/s. Triphasic. [place] artery distal: 47 cm/s. Biphasic. LEFT LEG: Common femoral artery: 109 cm/s, phasicity: Monophasic. Profunda femoris artery: 126 cm/s, phasicity: Monophasic Superficial femoral artery (proximal): Bypass Superficial femoral artery (mid): Bypass Superficial femoral artery (distal): Bypass Popliteal artery: 42 cm/s, phasicity: Monophasic. Posterior tibial artery: 34 cm/s, phasicity: Monophasic. Peroneal artery: No color Doppler flow. Anterior tibial artery: 44 cm/s, phasicity: Monophasic. Dorsalis pedis artery: 57 cm/s, phasicity: Biphasic. Femoral popliteal bypass graft: Inflow artery: 97 cm/s. Monophasic waveform. Proximal anastomosis site: 63 cm/s. Monophasic waveform. Proximal bypass graft: 30 cm/s. Monophasic. Mid bypass graft: 36 cm/s. Monophasic. Distal bypass graft: 37 cm/s. Biphasic. Distal anastomosis: 81 cm/s. Monophasic. Outflow artery: 106 cm/s. Monophasic. BRACHIAL PRESSURES: Right: 141 Left: 113 ANKLE PRESSURES: Right: PT 80, DP 82 Left: PT 79, DP 80 ANKLE-BRACHIAL INDEX: Right: 0.58 Left: 0.57 ANKLE PVR WAVEFORMS: Right: Abnormal Left: Abnormal ABDOMINAL AORTA: Proximal segment: 49 cm/s and a 2.4 cm maximum diameter. Mid segment: 47 cm/s and 1.7 cm in maximum diameter. Distal segment: 43 cm/s and 1.4 cm in maximum diameter. RIGHT ILIAC ARTERY: Common iliac artery: Not seen. External iliac artery: 125 cm/s. LEFT ILIAC ARTERY: Common iliac artery: Not seen. External iliac artery: 127 cm/s. US/US arterial duplex BI w/ TAWNY IMPRESSION: Right leg: Severe inflow disease throughout the interrogated vessels. Stent is patent with waveform variations. Left leg: Severe inflow disease throughout the interrogated vessels. Femoropopliteal Bypass is patent with inflow disease. TAWNY Reference: - >1.4 = calcified vessels - 0.9 - 1.4 = normal - no significant arterial disease - 0.7 - 0.89 = mild peripheral arterial disease - 0.51 - 0.69 = moderate peripheral arterial disease - d 0.50 = severe peripheral arterial disease - < .30 = critical arterial disease Electronically signed by: Shreyas Moran MD 05/30/2024 08:38 AM EDT
--- OUTSIDE RECORDS SUMMARY | 2024-05-29 14:30 | XMS_ITS | Clinical Summary ---
Author Organization [address] [facility] Address [address] [place] [address] Phone Care Team Providers Care Cathode Washer Name Role Phone Benjamin Escalera Primary Care Provider [phone] Allergies Active Allergy Reactions Criticality Noted Date [...] sterolemia,Obstru ctive sleep apnea,PVD (peripheral vascular disease) ([facility] V24),Tobacco use disorder,Chronic obstructive pulmonary disease, unspecified COPD type ([facility] V24, CMS/HCC V28),Osteopenia, unspecified location Take 1 tablet (1 mg total) by mouth every 8 (eight) hours if needed for anxiety. Max Daily Amount: 3 mg 84 tablet 02/11/19 25 Active nystatin (MYCOSTATIN) 100,000 unit/gram powder Apply to rash under breast 2-3 times a day for 2 weeks 15 g 04/08/19 25 Active spironolactone (ALDACTONE) 25 mg tablet TAKE ONE TABLET DAILY 30 tablet 5 05/06/19 25 Active spironolactone (ALDACTONE) 25 mg tablet Take 1 tablet (25 mg total) by mouth 1 (one) time each day. 11/02/19 24 025 Discontinued ibuprofen (ADVIL,MOTRIN) 800 mg tablet Take 1 tablet (800 mg total) by mouth 3 (three) times a day. 90 each 04/25/19 025 Hospital, Clinic, or Other Facility Administered Medication [...] Date Diagnosed Date PVD (peripheral vascular disease) ([facility] V24) 09/03/2019 Cannabis abuse 02/27/2019 Centrilobular emphysema ([facility] V24, [facility] V2 8) 02/27/2019 Dilated bile duct 03/13/2018 Overview (11/28/2023): Gary to have papillary stenosis related to remote cholecystectomy. Anxiety and depression 08/13/2017 Tobacco use disorder 08/13/2017 Overview (11/28/2023): Last Assessment & Plan: Encouraged cessation Chronic ulcer of right heel ([facility] V24, [facility]/ C V28) 01/02/2017 Overview (11/28/2023): Underlying osteomyelitis, angioplasty with stent, 10/23/2017 Calcaneus fracture, right 11/28/2016 Overview (11/28/2023): CT scan 09/11/2016 Colon polyps 09/01/2016 Alcohol abuse, daily use 05/03/2016 Closed bimalleolar fracture of right ankle 09/29 Overview (11/28/2023): 2014 Obstructive sleep apnea 01/12/2015 COPD (chronic obstructive pu lmonary disease) ([facility] V24, [facility] V28) 10/05/2011 Osteopenia 07/28/2010 Essential hypertension, benign 03/22/2006 Overview (11/28/2023): Last Assessment & Plan: Has follow up appt with Dr. Gaona in August for med adjustment. Allergic rhinitis 03/08/2005 Hypercholesterolemia 03/08/2005 Encounters Date Type Department Care Team Description 05/13/2024 9:30 AM EDT Office Visit Adult Medicine [address] [phone] Alessia Montez PA Essential hypertension, benign (Primary Dx); Hypercholesterolemia; Anxiety and depression; PVD (peripheral vascular disease) ([facility] V24); Leg cramping; Centrilobular emphysema ([facility] V24, [facility] V28); Tobacco use disorder; Alcohol abuse, daily use 05/07/2024 9:15 AM EDT Office Visit Orthopedic Surgery [address] [phone] Kg Paul DPM Posterior tibial tendon dysfunction (PTTD) of right lower extremity (Primary Dx); Arthritis of right ankle; Disorder of ligament of right foot 04/22/2024 Telephone Orthopedic Surgery [facility] [address] [phone] Kg Paul DPM 04/07/2024 9:45 AM EST Office Visit Obstetrics and Gynecology [address] [address] Radha Sandoval CNM Encounter for annual routine gynecological examination (Primary Dx); Screening mammogram for breast cancer; Cutaneous fungal infection; Tobacco use disorder; Essential hypertension, benign 03/26/2024 9:15 AM EST Office Visit Orthopedic Surgery - [address] [phone] Kg Paul, DPM Arthritis of [...] CHOLECYSTECTOMY 1984 PROCEDURE: HISTORICAL CHOLECYSTECTOMY SECTION PROCEDURE: FL DELIVERY ONLY; COMMENT: times 2 OTHER SURGICAL HISTORY 1987 PROCEDURE: FL LIG/TRNSXJ FLP TUBE ABDL/VAG APPR UNI/BI KNEE SURGERY 1973 PROCEDURE: HISTORICAL KNEE SURGERY; COMMENT: left MULTIPLE TOOTH EXTRACTIONS PROCEDURE: HISTORICAL DENTAL EXTRACTION BREAST BIOPSY 2014 Right PROCEDURE: BX BREAST; PERC NEEDLE CORE W/IMAG GUID; COMMENT: b9 COLONOSCOPY 2006 PROCEDURE: HISTORICAL COLONOSCOPY; COMMENT: normal with normal random bx. UPPER GASTROINTESTINAL ENDOSCOPY 2006 PROCEDURE: FL UPPER GI ENDOSCOPY PERFORMED; COMMENT: normal with [...] essential hypertension Chronic obstructive lung dis ease ([facility] V24, [facility] V28) 07/26/2007 DX:Chronic obstructive lung disease (HCC) COPD (chronic obstructive pu lmonary disease) ([facility] V24, [facility] V28) 10/05/2011 DX:COPD (chronic o bstructive pulmonary disease) (HCC) Obstructive sleep apnea 01/12/2015 DX:Obstr uctive sleep apnea Family History Medical History Relation Name Comments Other: HIV/AIDS Brother 1 Al Lung cancer Brother 2 hCava No Known Problems Daughter 1 No Known Problems Daughter 2 CABG Father pacemaker Diabetes Maternal Grandmother Hypertension Mother HI, cholesterol Lung cancer Sister 1 Paul Breast [...] Date Smoking Tobacco: Every Day Cigarettes 0.5 40.8 Started: 08/23/1983 Smokeless Tobacco: Never Tobacco Cessation:Ready [...] getting things needed for daily living? No Has the lack of transportati on kept [...] care for your loved ones. For example, professor of early childhood education or elderly care for an older adult? [...] AM EDT Office Visit Orthopedic Surgery - [place] [address] [phone] Kg Paul, DPM [address] [address] 11/04/2024 9:00 AM EDT Appointment Radiology Department - [address] [phone] 11/04/2024 10:00 AM EDT Appointment Bone Density - [address] [phone] Health Maintenance Due Date Last Done Comments [...] LAB MICROBIOLOGY METHOD 04/09/2024 3:03 PM EST [facility] ([facility]) [facility] Brushing/Spatula Cervix uteri structure / Unknown 04/07/2024 10:53 AM EST 04/08/2024 6:19 AM EST Radha Sandoval CNM LAB MOLECULAR DIAGNOSTICS ORDER KENNEDY Final Result Performing Organization Address City/[facility]/ZIP Co de Phone Number [facility] [address] [place] [address], [place] [phone] * Pap smear (04/07/2024 10:53 AM EST) Interpretation Negative for intraepithelial lesion or malignancy 04/09/2024 3:29 PM [facility] General Categorization Negative 04/09/2024 3:29 PM [facility] Specimen Adequacy Satisfactory for evaluation, endocervical/ordoñez sformation zone component absent 04/09/2024 3:29 PM [facility] Pap Methodology Liquid Based Pap Test 04/09/2024 3:29 PM [facility] Disclaimer The Pap test is a screening test which carries an inherent false negative rate. These test results should be correlated with the patient's clinical findings and history. This Pap test was processed using an automated screening system. Technical cytopathology services provided by [facility], at [address] [place] [address] (CLIA # [id number]/Kuldip Anthony MD, [employer].) 04/09/2024 3:29 PM [facility] Console Pap Interpretation Reported 04/09/2024 3:29 PM [facility] Brushing/Spatula Cervix uteri structure / Unknown 04/07/2024 10:53 AM EST 04/07/2024 10:53 AM EST Radha Sandoval CNM LAB CYTOLOGY ORDERABLES Final R esult [facility] ([facility]) H[facility] [address] [place] [address], * Injection tendon or ligament (03/26/2024 9:15 [...] AM EDT Narrative 11/21/2023 11:12 AM EDT [facility] Diagnostic Imaging Department [address] [place] [address] Patient: ??SONI VALDES ?/Age/Sex: 1960 - 63 - F Unit#: ??[id number] ? Location/Status: ??SPDICATLS/REG CLI ? Mnemonic/Ordering Site: ??CTLUNGLD/SPCT Ordering Physician: ??SAM ALVA MD CT Lung Screening Low Dose - 11/21/23 - [id number] Report Status:Signed EXAMINATION: CT CHEST WITHOUT CONTRAST [...] in the coronal and sagittal planes. Device: Globevestor DLP: 101 mGy-cm CTDI: 2.85 Dose optimization [...] Procedure Note Sal Huerta MD - 12/04/2023 [facility] Diagnostic Imaging Department [address] [place] [address] Patient: SONI VALDES /Age/Sex: 1960 - 63 - F Unit#: [id number] Location/Status: [facility] Mnemonic/Ordering Site: [facility] Ordering Physician: SAM ALVA MD CT Lung Screening Low Dose - 11/21/23 - [id number] Report Status:Signed EXAMINATION: CT CHEST WITHOUT CONTRAST [...] in the coronal and sagittal planes. Device: SkySpecser DLP: 101 mGy-cm CTDI: 2.85 Dose optimization [...] Merline HUERTA BRET MD Dic Date/Time: 11/21/23 1052 Sign date/Time: 11/21/23 1112 us Sam Alva MD IMG CT PROCEDURES Final Result * Annual BMP Blood Test (11/08/2023) Pathologist [facility] Annual BMP Blood Test abstracted Result [facility] HEALTH MAINTENANCE Final Result * Falls Risk Assessment (10/05/2023) [facility] Falls Risk Assessment abstracted Result [facility] HEALTH MAINTENANCE Final Result * Depression Screening (10/05/2023) Pathologist [facility] Depression Screening abstracted Result [facility] Final Result * (ABNORMAL) Lipid panel (05/31/2023) [facility] LDL/HDL Ratio 4 0 - 4 Triglycerides 141 0 - 150 mg/dL Cholesterol 177 0 - 200 mg/dL HDL 42 >=40 mg/dL LDL Cholesterol 107(A) 0 - 100 mg/dL Blood Venous blood specimen / Unknown Result [facility] LAB BLOOD ORDERABLES Luz l Result [...] to have osteoporosis by WHO criteria. [facility] Department of Internal Medicine recommends using National [...] alternative screening schedule based on amber Rodriguez., [facility] February 23, 2011 for patients with osteopenia [...] to have osteoporosis by WHO criteria. [facility] Department of Internal Medicine recommendsusing National Osteoporosis [...] alternative screening schedule based on amber Rodriguez., NEJJanuary 2011 for patients with osteopenia (based on hip BMD T-score) is as follows: * advanced osteopenia (T scores -2.00 to -2.49), BMD testing every year * moderate osteopenia (T scores -1.50 to -1.99), BMD testing every 5years mild osteopenia or normal BMD (T scores -1.50 and higher), BMD testingevery 15 years Aaron Guerrero DO IMG DXA PROCEDURES Final Resu lt * Colonoscopy (08/25/2019) [facility] Colonoscopy no interpretation , abstracted Anatomical Region Laterality Modality Other Historical Provider HEALTH MAINTENANCE Final Result * Hepatitis C Screening (01/12/2015) [facility] Hepatitis C Screening abstracted Historical Provider HEALTH MAINTENANCE Final Result from Last 3 Months or Most Recently Relevant to Health Maintenance Insurance [facility] PLAN Advance Directives Documents on File Type Date Recorded Patient Pickle Processor Expl anation Health Care Decision (hx) 12/22/2022 HE ALTH CARE PROXY Health Care Decision (hx) 12/22/2022 HE ALTH CARE PROXY Care Teams Cathode Washer Relationship Specialty Start Date End Date Benjamin Escalera PA [address] [place] [address] PCP - General Internal Medicine 08/01/19
--- OUTSIDE RECORDS SUMMARY | 2024-05-29 14:30 | XMS_ITS | Clinical Summary ---
Author Organization [facility] Address [address] [place] [address] Phone Care Team Providers Care Coffee Maker Servicer Name Role Phone [facility] Unavailable [phone] NATI HEAD Primary Care Provider [phone] Reason for Visit and Chief Complaint Post Op Visit/Follow Up Plan of Treatment Pending Tests Order Diagnosis Results Due Ordering P fadia Follow Up - Appointment 1 Month Pain due to internal orthopedic prosth dev/grft, init 01/04/23 Sadia Justice MD Last Documented On 3 9:08AM ; [facility] Follow Up - Appointment 1 Week Pain due to internal orthopedic prosth dev/grft, init 01/04/23 Sadia Justice MD Last Documented On 3 9:08AM ; [facility][note 3] Assessments Includes: Assessments from this encounter No Assessments Recorded Medical Equipment - Implanted Devices Includes: Current Devices No Medical Equipment Recorded Medications Includes: Medications discussed during this encounter and other current Medications Current Medications (continue as prescribed) Ibuprofen Oral Tablet 08/07/2022 Provider: Diagnosis: Last Documented On 3 8:09AM By Dipak Valerio ; [facility][note 3] oxyCODONE HCl 5 MG Oral Capsule 07/10/2022 Provider: Diagnosis: Last Documented On 3 9:18AM By Dipak Valerio ; [facility][note 3] Tylenol Oral Tablet 07/10/2022 Provider: Diagnosis: Last Documented On 3 9:18AM By Dipak Valerio ; [facility][note 3] Medications Administered Includes: Administered Medications from this [...] Post Op Visit/Follow Up Sadia Justice MD [facility] 01/05/20 8:00AM 8:37AM Insurance Includes: Active Insurance Policies Plan Name Member ID Group # Subscriber Relationship Effect joleen Dates 1 - [employer] Plan [id number] Soni Toure Clinical Notes Includes: Clinical Notes from this encounter * Progress note Date Encounter Last Documented by 01/04/2023 Post Op Visit/Follow Up Last doc umented on 01/04/2023; 9:08 AM, Sadia Justice MD; [facility] Plan StartCited - Pain due to [...]
--- OUTSIDE RECORDS SUMMARY | 2024-05-29 14:30 | XMS_ITS | Clinical Summary ---
Author Organization [facility] Address [address] [place] [address] Phone Care Team Providers Care Maintenance Engineer Name Role Phone [facility] Un[facility] [phone] NATI HEAD Primary Care Provider [phone] Reason for Visit and Chief Complaint History [...] On 3 8:09AM By Dipak Valerio ; [facility] oxyCODONE HCl 5 MG Oral Capsule 07/10/2022 Provider: Diagnosis: Last Documented On 3 9:18AM By Dipak Valerio ; [facility] Tylenol Oral Tablet 07/10/2022 Provider: Diagnosis: Last Documented On 3 9:18AM By Dipak Valerio ; [facility] Medications Administered Includes: Administered Medications from [...] Subscriber Relationship Effect joleen Dates 1 - [employer] Plan [id number] Soni Toure Clinical Notes Includes: Clinical Notes from this encounter * Progress note Date Encounter Last Documented by 12/12/2022 History and Physical Last docume nted on 12/12/2022; 3:25 PM, Bela VALENCIA; [facility], User Defined 4 Chief complaint: Follow-up ORIF [...]
--- OUTSIDE RECORDS SUMMARY | 2024-05-29 14:30 | XMS_ITS ---
Care Plan - [facility] Created on: May 29, 2024 Soni Sharma : 1960 Sex: Female Author Organization [facility] Address [address] [place] [address] Phone Care Team Providers Care Bar Attendant Name Role Phone [facility] Unavailable [phone] NATI HEAD Primary Care Provider [phone]
--- OUTSIDE RECORDS SUMMARY | 2024-05-29 14:30 | XMS_ITS ---
Author Organization [facility] Address [address] [place] [address] Phone Care Team Providers Care Bridge Worker Name Role Phone [facility] [phone] NATI HEAD Primary Care Provider [phone] Plan of Treatment No Plan of Treatment Recorded Assessments Includes: Assessments for all patient encounters No Assessments Recorded Medical Equipment - Implanted Devices Includes: Current and historical Devices No Medical Equipment Recorded Medications Includes: Current and historical Medications Current Medications (continue as prescribed) Ibuprofen Oral Tablet 08/07/2022 Provider: Diagnosis: Last Documented On 3 8:09AM By Dipak Valerio ; [facility] oxyCODONE HCl 5 MG Oral Capsule 07/10/2022 Provider: Diagnosis: Last Documented On 3 9:18AM By Dipak Valerio ; [facility] Tylenol Oral Tablet 07/10/2022 Provider: Diagnosis: Last Documented On 3 9:18AM By Dipak Valerio ; [facility] Medications Administered Includes: Administered Medications in patient's chart No Administered Medications Recorded Vital Signs Includes: Vital Signs from 05/30/2023 through 05/29/2024 Vital Name 06/07/2023 08:10A Blood Pressure Sitting (mmHg) 177/68 Pulse Rate-Sitting (bpm) 80 Temp-Temporal 97.1 Height (in) 59 Weight (lb) 132 Body Mass Index 26.7 Body Surface Area 1.5 Oxygen Saturation (%) 98 Last Documented: On 06/07/2023 8:10AM ; [facility] Results Includes: Results from 05/30/2023 through 05/29/2024 No Results Recorded For Specified Dates History of Present Illness History of Present Illness not supported for this document type No History of Present Illness Recorded Social History No Social History Recorded - Smoking Status Unknown Procedures and Surgical History Includes: Procedures from 05/30/2023 through 05/29/2024 Procedures Code Diagnosis Performing Provider Service Location Service Date X-Ray Exam Of Ankle, minimum of 3 views (Right) [address] Displaced bimalleolar fracture of right lower leg, init [facility] Justice [facility] 06/07/2023 Last Documented On 10:32AM ; [facility] Medical History Includes: Medical History in [...] Physical Exam Recorded Encounters Includes: Encounters from 05/30/2023 through 05/29/2024 Encounter Provider Location Date Check-In Time Check-Out Time Diagnosis Established Patient Sadia Justice MD [facility] 024 8:20AM 8:42AM Insurance Includes: Active Insurance Policies Plan Name Member ID Group # Subscriber Relationship Effect joleen Dates 1 - [employer] Health Plan [id number] Sonigayla Stylesmedardo Self Clinical Notes Includes: Signed Clinical Notes starting from 01/15/2022 * Progress note Date Encounter Last Documented by 06/07/2023 Established Patient Alphonso stephanijersey hassan on 06/07/2023; 8:47 AM, Sadia Justice MD; [facility] Physical Findings - Vitals taken 06/07/2023 [...] would like her to go see the chief catalyst operator for additional care. Follow-up with us as needed.
--- OUTSIDE RECORDS SUMMARY | 2024-05-29 14:30 | XMS_ITS | Clinical Summary ---
Author Organization [facility] Address [address] [place] [address] Phone Care Team Providers Care Fur Blowing Machine Operator Name Role Phone [facility] [phone] NATI HEAD Primary Care Provider [phone] Reason for Visit and Chief Complaint Established Patient Plan of Treatment Pending Tests Order Diagnosis Results Due Ordering P fadia Follow Up - Appointment PRN Displace d bimalleolar fracture of right lower leg, init 06/07/23 Sadia Justice MD Last Documented On 4 8:46AM ; [facility] [place] Assessments Includes: Assessments from this encounter No Assessments Recorded Medical Equipment - Implanted Devices Includes: Current Devices No Medical Equipment Recorded Medications Includes: Medications discussed during this encounter and other current Medications Current Medications (continue as prescribed) Ibuprofen Oral Tablet 08/07/2022 Provider: Diagnosis: Last Documented On 3 8:09AM By Dipak Valerio ; [facility] [place] oxyCODONE HCl 5 MG Oral Capsule 07/10/2022 Provider: Diagnosis: Last Documented On 3 9:18AM By Dipak Valerio ; [facility] [place] Tylenol Oral Tablet 07/10/2022 Provider: Diagnosis: Last Documented On 3 9:18AM By Dipak Valerio ; [facility] [place] Medications Administered Includes: Administered Medications from this encounter No Administered Medications Recorded Vital Signs Includes: Vital Signs from this encounter Vital Name 06/07/2023 08:10A Blood Pressure Sitting (mmHg) 177/68 Pulse Rate-Sitting (bpm) 80 Temp-Temporal 97.1 Height (in) 59 Weight (lb) 132 Body Mass Index 26.7 Body Surface Area 1.5 Oxygen Saturation (%) 98 Last Documented: On 06/07/2023 8:10AM ; [facility], Results Includes: Results discussed during this [...] Of Ankle, minimum of 3 views (Right) [id number] Displaced bimalleolar fracture of right lower leg, brad Sadia Justice MD [facility], 06/07/2023 Last Documented On 4 10:32AM ; [facility], Medical History Includes: Medical History addressed [...] would like her to go see the book packer for additional care. Follow-up with us as needed. Mental Status Includes: Mental Status from this encounter No Mental Status Recorded Functional Status Includes: Functional Status from this encounter No Functional Status Recorded Physical Exam Includes: Physical Exam from this encounter Encounters Encounter Provider Location Date Check-In Time Check-Out Time Diagnosis Established Patient Sadia Justice MD [facility], 024 8:20AM 8:42AM Insurance Includes: Active Insurance Policies Plan Name Member ID Group # Subscriber Relationship Effect joleen Dates 1 - [employer] Plan [id number] Soni Toure Clinical Notes Includes: Clinical Notes from this encounter * Progress note Date Encounter Last Documented by 06/07/2023 Established Patient Last alejandra hassan on 06/07/2023; 8:47 AM, Sadia Justice MD; [facility] Physical Findings - Vitals taken 06/07/2023 [...] would like her to go see the book packer for additional care. Follow-up with us as needed.
--- OUTSIDE RECORDS SUMMARY | 2024-05-29 14:30 | XMS_ITS | Clinical Summary ---
Author Organization [facility] Address [address] [place] [address] Phone Care Team Providers Care Billing And Accounting Staff Assistant Name Role Phone [facility] [phone] NATI HEAD Primary Care Provider [phone] Reason for Visit and Chief Complaint Post Op Visit/Follow Up Plan of Treatment Pending Tests Order Diagnosis Results Due Ordering P fadia Follow Up - Appointment PRN Infct fo l a procedure, deep incisional surgical site, subs 02/15/23 Reed Carey MD Last Documented On 4 8:18AM ; [facility] Assessments Includes: Assessments from this encounter No Assessments Recorded Medical Equipment - Implanted Devices Includes: Current Devices No Medical Equipment Recorded Medications Includes: Medications discussed during this encounter and other current Medications Current Medications (continue as prescribed) Ibuprofen Oral Tablet 08/07/2022 Provider: Diagnosis: Last Documented On 3 8:09AM By Dipak Valerio ; [facility] oxyCODONE HCl 5 MG Oral Capsule 07/10/2022 Provider: Diagnosis: Last Documented On 3 9:18AM By Dipak Valerio ; [facility] Tylenol Oral Tablet 07/10/2022 Provider: Diagnosis: Last Documented On 3 9:18AM By Dipak Valerio ; [facility] Medications Administered Includes: Administered Medications from [...] Post Op Visit/Follow Up [facility]19 24 8:20AM 8:14AM Insurance Includes: Active Insurance Policies Plan Name Member ID Group # Subscriber Relationship Effect joleen Dates 1 - [employer] Plan [id number] Soni Toure Clinical Notes Includes: Clinical Notes from this encounter * Progress note Date Encounter Last Documented by 02/15/2023 Post Op Visit/Follow Up Last doc umented on 02/15/2023; 8:18 AM, Reed Carey MD; [facility] Current Medication - Ibuprofen Oral Tablet 0 [...]
--- OUTSIDE RECORDS SUMMARY | 2024-05-29 14:30 | XMS_ITS | Clinical Summary ---
Author Organization [facility] Address [address] [place] [address] Phone Care Team Providers Care Studio Artist Name Role Phone [facility] Un[facility] [phone] NATI HEAD Primary Care Provider [phone] Reason for Visit and Chief Complaint Post Op Visit/Follow Up Plan of Treatment Pending Tests Order Diagnosis Results Due Ordering P fadia Follow Up - Appointment 1 Month Infct fo l a procedure, deep incisional surgical site, subs 01/11/23 Reed Carey MD Last Documented On 3 10:09AM ; [facility] Assessments Includes: Assessments from this encounter No Assessments Recorded Medical Equipment - Implanted Devices Includes: Current Devices No Medical Equipment Recorded Medications Includes: Medications discussed during this encounter and other current Medications Current Medications (continue as prescribed) Ibuprofen Oral Tablet 08/07/2022 Provider: Diagnosis: Last Documented On 3 8:09AM By Dipak Valerio ; [facility] oxyCODONE HCl 5 MG Oral Capsule 07/10/2022 Provider: Diagnosis: Last Documented On 3 9:18AM By Dipak Valerio ; [facility] Tylenol Oral Tablet 07/10/2022 Provider: Diagnosis: Last Documented On 3 9:18AM By Dipak Valerio ; [facility] Medications Administered Includes: Administered Medications [...] Post Op Visit/Follow Up [facility] 01/12/20 10:00AM 10:19AM Insurance Includes: Active Insurance Policies Plan Name Member ID Group # Subscriber Relationship Effect joleen Dates 1 - [employer] Plan [id number] Soni Toure Clinical Notes Includes: Clinical Notes from this encounter * Progress note Date Encounter Last Documented by 01/11/2023 Post Op Visit/Follow Up Last doc umented on 01/11/2023; 10:09 AM, Reed Carey MD; [facility] Current Medication - Ibuprofen Oral Tablet 0 [...]
== END 2024-05-29 12:13 | disposition home or self-care (01) ==
LOC: HO.US 12:12
PROVIDERS: PCP Physician Assistant Medical; Visit Provider Surgery Vascular Surgery
DX: I73.9 Peripheral vascular disease, unspecified (principal); Z95.828 Presence of other vascular implants and grafts
CPT/HCPCS: 76706; 93922; 93925

== ENCOUNTER → 2024-05-29 12:16 | Outpatient (BNV) | payer OTHER, SELFPAY | PROVIDERS: PCP Physician Assistant Medical; Visit Provider Radiology Diagnostic Radiology | DX: I73.9 Peripheral vascular disease, unspecified (principal) | CPT/HCPCS: 93922; 93925 ==

== ENCOUNTER 2024-06-12 09:02 | Outpatient (AMB) | payer OTHER, SELFPAY ==
--- NOTE | 2024-06-12 09:04 | MHC.OFFVIS ---
Intake Visit Reasons: follow up s/p Arterial US 05/29/24 Intake Note: Patient presents for follow up arterial US. States she has right leg pain. Accompanied by: Daughter Allergies MIKAELA Inhibitors Allergy (Intermediate, Verified 06/12/24 09:05) hyperkalemia methadone Allergy (Mild, Verified 06/12/24 09:05) Hives atorvastatin Allergy (Unknown, Verified 06/12/24 09:05) facial swelling, rash propoxyphene [From DARVOCET-N] Allergy (Unknown, Verified 06/12/24 09:05) ITCHY RASH HPI HPI follow up s/p Arterial US 05/29/24: Details: Very pleasant 63-year-old female presents for follow-up regarding peripheral vascular disease. She has a significant history of a left fem-pop bypass back in 2019 for nonhealing ulcer and right SFA stenting. She underwent noninvasive arterial testing. She reports that a right lower extremity has been a source of pain and discomfort for her. She now presents for follow-up. [facility] Surgical History S/P debridement (08/29/17) S/P debridement (04/21/17) Status post angioplasty S/P angiogram of extremity History of femoropopliteal bypass Hx of cholecystectomy Family History Father No problems noted. Mother No problems noted. Social History Patient Tobacco Use Status: Current everyday Tobacco user Tobacco use type: Cigarette Cigarettes Per Day: 10 Review of Systems Const All systems reviewed & are unremarkable except as noted in HPI and below Reports no additional complaints ENT Reports Normal hearing present Card Denies chest pain, Denies chest pain at rest, Denies chest pain with activity and Denies pedal edema Resp Denies cough GI Denies abdominal pain Musc Denies abnormal gait, Denies muscle cramps and Denies radiating pain into limb Skin/Breast Denies skin ulcer and Denies wounds Neuro Reports Normal hearing present and Denies abnormal gait Psych Reports no additional complaints Physical Exam Const General: cooperative, healthy appearing and comfortable Orientation/consciousness: oriented to person, oriented to place and oriented to time HEENT Head: Yes normal to inspection Neck Neck: Yes normal visual inspection Carotids: no bruits Chest Chest palpation & inspection: normal inspection of the chest Resp Effort & Inspection: normal respiratory effort and able to speak in complete sentences Auscultation: clear to auscultation bilaterally, no crackles, no rales, no rhonchi and no wheezes Cardio Other: Bilateral DP signals Rate: regular rate Rhythm: regular rhythm Heart sounds: S1 normal heart sound present and S2 normal heart sound present Bruits: no carotid bruits GI Inspection: Yes normal to inspection Skin Wounds: no wounds Hair: normal Neuro General: oriented to person, oriented to place and oriented to time Cranial nerves: Yes CN's II-XII intact bilaterally and Yes Normal hearing present Cognition (Neuro): normal cognition Motor exam (neuro): 5/5 motor strength present throughout Extrem Other: venous exam: No significant superficial varicosities or spider telangiectasias, minimal edema General: No clubbing, No cyanosis and No edema Psych Appearance: grossly normal Mental Status: mental status grossly normal Speech and movement: Normal speech and movement present Results Reviewed Results Reviewed: Noninvasive arterial testing dated 05/29/2024 demonstrates TAWNY on the right of 0.58 and on the left of 0.57. Left fem-pop is patent. Right side she appears to disease throughout the lower extremity including the stent and on down. Assessment & Plan Assessment & Plan (1) PAD (peripheral artery disease): Comment: February 2018 - left femoral to above knee popliteal bypass June 2017 - right SFA stent Code(s): I73.9 - Peripheral vascular disease, unspecified Category: Medical Plan: In short patient has significant peripheral vascular disease. Based on the ultrasound findings I am concerned about inflow disease as well. I have taken the liberty of ordering a CT angiogram with runoff to better elucidate the location of disease. She will follow up with us after testing. Thank you for allowing us to assist in her care. Orders: Orders CT angio abd aorta runoff 1 Week I73.9 - Peripheral vascular disease, unspecified Blood Urea Nitrogen Today I73.9 - Peripheral vascular disease, unspecified Creatinine Today I73.9 - Peripheral vascular disease, unspecified Coding Level of Care Code Est Pt Level 4 (67617) Complex EM visit Add On G2211 Diagnoses PAD (peripheral artery disease) I73.9
== END 2024-06-12 09:43 | disposition home or self-care (01) ==
LOC: HO.HVS 09:03
PROVIDERS: PCP Physician Assistant Medical; Visit Provider Surgery Vascular Surgery
DX: I73.9 Peripheral vascular disease, unspecified (principal)
CPT/HCPCS: 99214; G2211

== ENCOUNTER → 2024-06-12 09:02 | Outpatient (BNVA) | payer OTHER, SELFPAY | PROVIDERS: PCP Physician Assistant Medical; Visit Provider Surgery Vascular Surgery | DX: I73.9 Peripheral vascular disease, unspecified (principal) | CPT/HCPCS: 99212 ==

== ENCOUNTER 2024-07-18 10:06 | Outpatient (REF) | payer OTHER, SELFPAY ==
--- OUTSIDE RECORDS SUMMARY | 2024-07-18 10:58 | XMS_ITS | Clinical Summary ---
Author Organization [address] [facility] Address [address] [place] [address] Phone Care Team Providers Care Solar Crew Member Name Role Phone Benjamin Escalera Primary Care Provider [phone] Allergies Active Allergy Reactions Criticality Noted Date Comments Martir Inhibitors 06/06/2013 hyperkalemia Atorvastatin 05/13/2018 Facial swelling Hydrochlorothiazide 06/06/2013 hypokalemia Methadone 03/14/2006 Other Reaction(s): Hives/Urticaria Medications lamoTRIgine (LaMICtal) 50 mg dispersible tablet Take by mouth. Active losartan-hydroCHLO ROthiazide (HYZAAR) 100-25 mg per tablet Take 1 tablet by mouth 1 (one) time each day. 4 Active fluticasone propionate (FLONASE) 50 mcg/actuation nasal spray 2 sprays to each nostril daily 4 Active clopidogreL (PLAVIX) 75 mg tablet Take 1 tablet (75 mg total) by mouth 1 (one) time each day. 4 Active calcium carbonate 1,500 mg (600 mg elemental calcium) tablet Take 1 Tablet by mouth 2 times daily (with meals). 4 Active amLODIPine (NORVASC) 10 mg tablet Take 1 tablet (10 mg total) by mouth 1 (one) time each day. 4 Active atenoloL (TENORMIN) 50 mg tablet Take 1.5 tablets (75 mg total) by mouth 1 (one) time each day. 4 Active cholecalciferol (VITAMIN D-3) 50 mcg (2,000 unit) tablet Take 1 tablet (2,000 Units total) by mouth 1 (one) time each day. 4 Active rosuvastatin (CRESTOR) 10 mg tablet Take 1 tablet (10 mg total) by mouth 1 (one) time each day. 4 Active celecoxib (CeleBREX) 200 mg capsule Take 1 capsule (200 mg total) by mouth 2 (two) times a day. 4 Active mirtazapine (REMERON) 30 mg tablet 4 Active albuterol HFA (PROAIR HFA ; PROVENTIL HFA ; VENTOLIN HFA) 90 mcg/actuation inhaler Inhale 2 Puffs into the lungs every 4 hours as needed for Wheezing for up to 30 days. 3 Active umeclidinium-vilan teroL (ANORO ELLIPTA) 62.5-25 mcg/actuation inhaler Inhale 1 Puff into the lungs daily. 2 Active ipratropium-albute roL (DUONEB) 0.5-2.5 mg/3 mL nebulizer solution Inhale 3 mL into the lungs 4 times daily. 1 Active medical supply, miscellaneous (MISCELLANEOUS MEDICAL SUPPLY [facility]) SPACER DEVICE- Use with inhaler 0 Active BABY ASPIRIN ORAL Take 1 Tab by mouth daily. Active ARIPiprazole (ABILIFY) 5 mg tablet Take 1 tablet (5 mg total) by mouth 1 (one) time each day. 4 Active escitalopram (LEXAPRO) 10 mg tablet Take 1 tablet (10 mg total) by mouth 1 (one) time each day. Active nystatin (MYCOSTATIN) 100,000 unit/gram powder Apply to rash under breast 2-3 times a day for 2 weeks 15 g 5 Active spironolactone (ALDACTONE) 25 mg tablet TAKE ONE TABLET DAILY 30 tablet 5 5 Active LORazepam (ATIVAN) 1 mg tabletIndications: Anxiety and depression,Essenti al hypertension, benign,Hypercholes terolemia,Obstruct joleen sleep apnea,PVD (peripheral vascular disease) ([facility]),Tobacco use disorder,Chronic obstructive pulmonary disease, unspecified COPD type ([facility], [facility] V28),Osteopenia, unspecified location Take 1 tablet (1 mg total) by mouth every 8 (eight) hours if needed for anxiety. Max Daily Amount: 3 mg 84 tablet 5 Active Active Problems Problem Noted Date Diagnosed Date PVD (peripheral vascular disease) ([facility]) 09/03/2019 Cannabis abuse 02/27/2019 Centrilobular emphysema ([facility], [facility] V2 8) 02/27/2019 Dilated bile duct 03/13/2018 Overview (11/28/2023): [place] to have papillary stenosis related to remote cholecystectomy. Anxiety and depression 08/13/2017 Tobacco use disorder 08/13/2017 Overview (11/28/2023): Last Assessment & Plan: Encouraged cessation Chronic ulcer of right heel ([facility], [facility] V28) 01/02/2017 Overview (11/28/2023): Underlying osteomyelitis, angioplasty with stent, 10/23/2017 Calcaneus fracture, right 11/28/2016 Overview (11/28/2023): CT scan 09/11/2016 Colon polyps 09/01/2016 Alcohol abuse, daily use 05/03/2016 Closed bimalleolar fracture of right ankle 09/29 Overview (11/28/2023): 2014 Obstructive sleep apnea 01/12/2015 COPD (chronic obstructive pu lmonary disease) ([facility], [facility] V28) 10/05/2011 Osteopenia 07/28/2010 Essential hypertension, benign 03/22/2006 Overview (11/28/2023): Last Assessment & Plan: Has follow up appt with Dr. Gaona in August for med adjustment. Allergic rhinitis 03/08/2005 Hypercholesterolemia 03/08/2005 Encounters Date Type Department Care Team Description 05/13/2024 9:30 AM EDT Office Visit Adult Medicine [address] [phone] Alessia Montez PA Essential hypertension, benign (Primary Dx); Hypercholesterolemi a; Anxiety and depression; PVD (peripheral vascular disease) ([facility] V24); Leg cramping; Centrilobular emphysema ([facility] V24, [facility] V28); Tobacco use disorder; Alcohol abuse, daily use 05/07/2024 9:15 AM EDT Office Visit Orthopedic Surgery [facility] [address] [phone] Kg Paul DPM Posterior tibial tendon dysfunction (PTTD) of right lower extremity (Primary Dx); Arthritis of right ankle; Disorder of ligament of right foot 04/22/2024 Telephone Orthopedic [facility] [address] [phone] Kg Paul DPM from Last 3 Months Immunizations Name Administration [...] essential hypertension Chronic obstructive lung dis ease ([facility], [facility] V[facility]) 07/26/2007 DX:Chronic obstructive lung disease (HCC) COPD (chronic obstructive pu lmonary disease) ([facility], [facility]) 10/05/2011 DX:COPD (chronic o bstructive pulmonary disease) (HCC) Obstructive sleep apnea 01/12/2015 DX:Obstr uctive sleep apnea Family History Medical History Relation Name Comments Other: HIV/AIDS Brother 1 Al Lung cancer Brother 2 Chava No Known Problems Daughter 1 No Known Problems Daughter 2 CABG Father pacemaker Diabetes Maternal Grandmother Hypertension Mother PR, cholesterol Lung cancer Sister 1 Paul Breast [...] Date Smoking Tobacco: Every Day Cigarettes 0.5 40.9 Started: 08/23/1983 Smokeless Tobacco: Never Tobacco Cessation:Ready [...] Record ed Within the last 3 months, dali black many times did you visit the emergency [...] care for your loved ones. For example, children's institution attendant or elderly care for an older adult? [...] Care Team (Late st Contact Info) Description 08/05/2024 9:30 AM EDT Office Visit Adult Medicine [place] - [address] [phone] Alessia Montez PA [address] [place], [place] 08/13/2024 8:45 AM EDT Office Visit Orthopedic Surgery - [place] [address] [phone] Kg Paul, DPM [address] [phone] 11/04/2024 9:00 AM EDT Appointment Radiology Department - [address] [phone] 11/04/2024 10:00 AM EDT Appointment Bone Density - [address] [phone] Health Maintenance Due Date Last Done Comments [...] Additional history exists Breast Cancer Screening 11/30/2024 12/01/19, 11/25/2021, 11/23/2020, Additional history exists Cervical Cancer [...] Procedure Name Priority Date/Time Associated Diagnosis Comments EXTERNAL VASCULAR ULTRASOUND 05/29/2024 EXTERNAL VASCULAR ULTRASOUND 05/29/2024 EXTERNAL ULTRASOUND REPORT 05/29/2024 INJECTION TENDON OR LIGAMENT Routine 05/07/2024 9:15 AM EDT Arthritis of right ankle HPV WITH REFLEX GENOTYPE Routine 04/07/2024 10:53 AM EST Encounter for annual routine gynecological examination CT LUNG SCREENING LOW DOSE Routine 11/21/2023 [...] Recently Relevant to Health Maintenance Results * External Vascular Ultrasound (05/29/2024) Only the most recent of2 resultswithin the time period is included. Anatomical Region Laterality Modality Ultrasound us Provider [facility] CV VASCULAR PROCEDURES F inal Result * External Ultrasound Report (05/29/2024) Anatomical Region Laterality Modality Ultrasound us Provider [facility] IMG US PROCEDURES Final Result * Injection tendon or ligament (05/07/2024 9:15 AM EDT) Narrative Kg Paul DPM - 05/07/2024 9:15 AM EDT Kg [...] LAB MICROBIOLOGY METHOD 04/09/2024 3:03 PM EST [facility] Brushing/Spatula Cervix uteri structure / Unknown 04/07/2024 10:53 AM EST 04/08/2024 6:19 AM EST Radha Sandoval CNM LAB MOLECULAR DIAGNOSTICS ORDER KENNEDY Final Result [facility] [address] [place] [address], [place] [phone] * CT LUNG SCREENING LOW DOSE (11/21/2023 11:12 AM EDT) Anatomical Region Laterality Modality Computed Tomogra phy 11/21/2023 7:23 AM EDT Narrative 11/21/2023 11:12 AM EDT [facility] Diagnostic Imaging Department [address] [place] [address] Patient: ??SONI VALDES ?/Age/Sex: 1960 - 63 - F Unit#: ??[id number] ? Location/Status: ??SPDICATLS/REG CLI ? Mnemonic/Ordering Site: ??CTLUNGLD/SPCT Ordering Physician: ??SAM ALVA MD CT Lung Screening Low Dose - 11/21/23732 Report Status:Signed EXAMINATION: CT CHEST WITHOUT CONTRAST [...] in the coronal and sagittal planes. Device: [employer] First Choiceer DLP: 101 mGy-cm CTDI: 2.85 Dose optimization [...] Procedure Note Sal Huerta MD - 12/04/2023 [facility] Diagnostic Imaging Department [address] [place] [id number] Patient: SONI VALDES /Age/Sex: 1960 - 63 - F Unit#: [id number] Location/Status: SPDICATLS/REG CLI Mnemonic/Ordering Site: [facility]/SPCT Ordering Physician: SAM ALVA MD CT Lung [...] in the coronal and sagittal planes. Device: Vets First Choiceer DLP: 101 mGy-cm CTDI: 2.85 Dose optimization [...] Merline HUERTA BRET MD Dic Date/Time: 11/21/23 1058 Sign date/Time: 11/21/23 1112 Result [facility] Sam Alva MD IMG CT PROCEDURES Final Result * Annual BMP Blood Test (11/08/2023) Pathologist [facility] Annual BMP Blood Test abstracted Result [facility] Provider HEALTH MAINTENANCE Final Result * Falls Risk Assessment (10/05/2023) [facility] Falls Risk Assessment abstracted Result [facility] HEALTH MAINTENANCE Final Result * Depression Screening (10/05/2023) [facility] Depression Screening abstracted Result [facility] HEALTH MAINTENANCE Final Result * (ABNORMAL) Lipid panel (05/31/2023) [facility] LDL/HDL Ratio 4 0 - 4 Triglycerides 141 0 - 150 mg/dL Cholesterol 177 0 - 200 mg/dL HDL 42 >=40 mg/dL LDL Cholesterol 107(A) 0 - 100 mg/dL Blood Venous blood specimen / Unknown Result [facility] Provider LAB BLOOD ORDERABLES Luz l Result * [...] % Breast cancer risk category High (>20%) Benjamin VALENCIA IMG XR PROCEDURES Final R [...] to have osteoporosis by WHO criteria. [facility] Department of Internal Medicine recommends using National [...] alternative screening schedule based on amber Rodriguez., [facility] February 23, 2011 for patients [...] to have osteoporosis by WHO criteria. [facility] Department of Internal Medicine recommendsusing National Osteoporosis [...] FRAX. Optional alternative screening schedule based on cristhian Rodriguez al., [facility] for patients with osteopenia (based on hip BMD T-score) is as follows: * advanced osteopenia (T scores -2.00 to -2.49), BMD testing every year * moderate osteopenia (T scores -1.50 to -1.99), BMD testing every 5years mild osteopenia or normal BMD (T scores -1.50 and higher), BMD testingevery 15 years Aaron Guerrero DO IMG DXA PROCEDURES Final Resu lt * Colonoscopy (08/25/2019) [facility] Colonoscopy no interpretation , abstracted Anatomical Region Laterality Modality Other Historical Provider HEALTH MAINTENANCE Final Result * Hepatitis C Screening (01/12/2015) [facility] Hepatitis C Screening abstracted [facility] Provider HEALTH MAINTENANCE Final Result from Last 3 Months or Most Recently Relevant to Health Maintenance Insurance [facility] Advance Directives Documents on File Type Date Recorded Patient Filler Block Inserter Remover Expl anation Health Care Decision (hx) 12/22/2022 HE [facility]TH CARE PROXY Health Care Decision (hx) 12/22/2022 HE ALTH CARE PROXY Care Teams Solar Crew Member Relationship Specialty Start Date End Date Benjamin Escalera PA [address] [place] [id number] PCP - General Internal Medicine 08/01/19
[2024-07-18 11:12] LABS: Blood Urea Nitrogen 11 mg/dL (9-16); Estimated Glomerular Filt Rate 56
== END 2024-07-18 10:07 | disposition home or self-care (01) ==
LOC: HO.LAB 10:06
PROVIDERS: PCP Physician Assistant Medical; Visit Provider Surgery Vascular Surgery
DX: I73.9 Peripheral vascular disease, unspecified (principal)
CPT/HCPCS: 36415; 82565; 84520

== ENCOUNTER 2024-08-12 13:42 | Outpatient (REF) | payer OTHER, SELFPAY ==
--- NOTE | ~2024-08-12 | CT_ITS ---
EXAMINATION: CT ANGIOGRAPHY LEGS WITH RUNOFF CLINICAL INFORMATION: I73.9 - Peripheral vascular disease, unspecified COMPARISON: None available. DLP: 383 mGY*cm TECHNIQUE: Axial CT imaging was performed after 100 mL IV bolus of iodinated contrast imaging from the lung bases to the feet. Coronal and sagittal reformatted images were generated from the original axial data set. 3D/3D MIP rendering was performed with image postprocessing under concurrent supervision with interpretation and reporting of CT as requested by the referring physician to facilitate diagnosis and treatment planning; not requiring image postprocessing on an independent workstation. ALARA: The examination used one or more of the following radiation dose reduction techniques: Automated exposure control, iterative reconstruction, and/or adjustment of mA and/or KV. FINDINGS: Aorta is patent with moderate hard and soft plaque. Right renal artery appears chronically occluded. RIGHT: Aortofemoral: Distal right common iliac artery is narrowed less than 50% by calcified plaque. Right external iliac artery is narrowed by hard and soft plaque, less than 50% focally through the midportion of the vessel. Image reference using axial CT series #6 Femoropopliteal: There is a graft extending distal common femoral artery to the distal superficial femoral artery. In the mid thigh in the distal portion of the graft (981/1960) lumen diameter decreases to 1.7 mm from 5 mm consistent with 66% focal stenosis. Image 1074/1961: Femoral popliteal artery junction diameter is minimal/threadlike consistent with >90% stenosis. Popliteal artery diameter is narrow throughout Crural: Posterior tibial: There is a normal trifurcation of the popliteal artery. There is flow the origin of the posterior tibial artery approximately 2 cm before no flow is identified. Flow reconstitutes the level of talus and is again not clearly seen at the level of the mid foot. However, there is motion that could obscure threadlike flow. Peroneal artery demonstrates visible flow to the level of the distal tibiofibular syndesmosis. Anterior tibial artery flow is visible into the hindfoot and then not clearly seen due to motion artifact and small size. LEFT: Aortofemoral: 493/1960: Left external iliac artery is 1.8 mm and measures 6 mm in the unaffected area consistent with focal 70% stenosis. Femoropopliteal: There is a graft extending from the distal in the common femoral artery to the distal superficial femoral artery 809/1961: Proximal Superficial femoral artery 2.0 mm versus 5.4 mm proximal. 63% stenosis. 913/1961: Mid thigh superficial femoral artery 2.7 mm. 50% stenosis. 1084/1960: Femoral-popliteal artery junction distal thigh demonstrates a threadlike flow, high-grade focal stenosis >90%. Popliteal artery: Multifocal high-grade stenosis with threadlike flow minimally visible at the knee joint line, >90% stenosis Crural: There is normal trifurcation of the popliteal artery in the proximal lower leg. Anterior tibial artery demonstrates focal vascular calcification in the proximal vessel and minimal flow to the level of the ankle joint. Peroneal artery demonstrates multifocal calcification with no flow demonstrated in the mid and distal lower leg. Posterior tibial artery demonstrates a threadlike flow through the proximal portion of the vessel with little to no flow through the lower leg and minimal flow in the ankle but no clear flow in the midfoot. Lung bases: Pleural thickening and atelectasis is present in the lateral right lung base. Liver: Unremarkable. Gallbladder is not visualized and likely surgically absent. Extrahepatic bile duct diameter is mildly enlarged measuring 8.5 mm. Pancreas: Unremarkable. Adrenal: 12 mm left adrenal gland left limb nodule measured -1 Hounsfield units consistent with adenoma. More inferiorly, there is an 11 mm nodule measuring 37 Hounsfield units which is indeterminate. Right adrenal gland is unremarkable. Kidneys: There is very small right kidney. Left kidney is unremarkable. Spleen is unremarkable. The GI tract is unremarkable. There is no ascites or herniation. CT/CT angio abd aorta runoff IMPRESSION: Multifocal hemodynamically significant stenoses, as detailed above. 2 left adrenal gland nodules. Liver rich adrenal adenoma is present in the lateral limb. More inferiorly, there is an indeterminate nodule likely representing an adenoma. There is no flow into the right renal artery. There is a small right kidney consistent with chronic kidney disease. There is nonspecific pleural thickening and adjacent atelectasis in the lower posterior lateral right lung base. Electronically signed by: Logan Vuong MD 08/12/2024 04:27 PM EDT
--- OUTSIDE RECORDS SUMMARY | 2024-08-12 14:31 | XMS_ITS | Clinical Summary ---
Author Organization 175 [facility] Address [address] [place] [address] Phone Care Team Providers Care Technical Services Rep Name Role Phone Benjamin Escalera Primary Care Provider [phone] Allergies Active Allergy Reactions Criticality Noted Date [...] Active medical supply, miscellaneous (MISCELLANEOUS MEDICAL SUPPLY [facility] SPACER DEVICE- Use with inhaler 0 Active [...] terolemia,Obstruct joleen sleep apnea,PVD (peripheral vascular disease) ([facility] V24),Tobacco use disorder,Chronic obstructive pulmonary disease, unspecified COPD type ([facility] V24, [facility] V28),Osteopenia, unspecified location Take 1 tablet (1 mg total) by mouth every 8 (eight) hours if needed for anxiety. Max Daily Amount: 3 mg 84 tablet 5 Active Active Problems Problem Noted Date Diagnosed Date PVD (peripheral vascular disease) ([facility] V24) 09/03/2019 Cannabis abuse 02/27/2019 Centrilobular emphysema ([facility] V24, [facility] V2 8) 02/27/2019 Dilated bile duct 03/13/2018 Overview (11/28/2023): [place] to have papillary stenosis related to remote cholecystectomy. Anxiety and depression 08/13/2017 Tobacco use disorder 08/13/2017 Overview (11/28/2023): Last Assessment & Plan: Encouraged cessation Chronic ulcer of right heel ([facility] V24, [facility] V28) 01/02/2017 Overview (11/28/2023): Underlying osteomyelitis, angioplasty with stent, 10/23/2017 Calcaneus fracture, right 11/28/2016 Overview (11/28/2023): CT scan 09/11/2016 Colon polyps 09/01/2016 Alcohol abuse, daily use 05/03/2016 Closed bimalleolar fracture of right ankle 09/29 Overview (11/28/2023): 2014 Obstructive sleep apnea 01/12/2015 COPD (chronic obstructive pu lmonary disease) ([facility] V24, [facility] V28) 10/05/2011 Osteopenia 07/28/2010 Essential hypertension, benign 03/22/2006 Overview (11/28/2023): Last Assessment & Plan: Has follow up appt with Dr. Gaona in August for med adjustment. Allergic rhinitis 03/08/2005 Hypercholesterolemia 03/08/2005 Encounters Date Type Department Care Team Description 05/13/2024 9:30 AM EDT Office Visit Adult Medicine [address] [phone] Alessia Montez PA Essential hypertension, benign (Primary Dx); Hypercholesterolemia; Anxiety and depression; PVD (peripheral vascular disease) ([facility] V24); Leg cramping; Centrilobular emphysema ([facility] V24, [facility] V28); Tobacco use disorder; Alcohol abuse, daily use from Last 3 Months Immunizations Name Administration [...] CHOLECYSTECTOMY 1984 PROCEDURE: HISTORICAL CHOLECYSTECTOMY SECTION PROCEDURE: WI DELIVERY ONLY; COMMENT: times 2 OTHER SURGICAL HISTORY 1987 PROCEDURE: WI LIG/TRNSXJ FLP TUBE ABDL/VAG APPR UNI/BI KNEE SURGERY 1973 PROCEDURE: HISTORICAL KNEE SURGERY; COMMENT: left MULTIPLE TOOTH EXTRACTIONS PROCEDURE: HISTORICAL DENTAL EXTRACTION BREAST BIOPSY 2014 Right PROCEDURE: BX BREAST; PERC NEEDLE CORE W/IMAG GUID; COMMENT: b9 COLONOSCOPY 2006 PROCEDURE: HISTORICAL COLONOSCOPY; COMMENT: normal with normal random bx. UPPER GASTROINTESTINAL ENDOSCOPY 2006 PROCEDURE: WI UPPER GI ENDOSCOPY PERFORMED; COMMENT: normal with [...] essential hypertension Chronic obstructive lung dis ease ([facility] V24, [facility] V28) 07/26/2007 DX:Chronic obstructive lung disease (HCC) COPD (chronic obstructive pu lmonary disease) ([facility] V24, [facility] V28) 10/05/2011 DX:COPD (chronic o bstructive pulmonary disease) ([facility]) Obstructive sleep apnea 01/12/2015 DX:Obstr uctive sleep apnea Family History Medical History Relation Name Comments Other: HIV/AIDS Brother 1 Al Lung cancer Brother 2 Chava No Known Problems Daughter 1 No Known Problems Daughter 2 CABG Father pacemaker Diabetes Maternal Grandmother Hypertension Mother [place], cholesterol Lung cancer Sister 1 Paul Breast [...] Date Smoking Tobacco: Every Day Cigarettes 0.5 41 Started: 08/23/1983 Smokeless Tobacco: Never Tobacco Cessation:Ready [...] care for your loved ones. For example, early childhood assistant or elderly care for an older adult? [...] 59 05/13/2024 9:18 AM EDT Temperature 36.5 C (97.7 F) 05/13/2024 9:18 AM EDT Respiratory Rate 15 05/13/2024 9:18 AM EDT Oxygen Saturation 98% 05/13/2024 9:18 AM EDT Inhaled Oxygen Concentration - - Weight 64.3 kg (141 lb 12.8 oz) 05/13/2024 9:18 AM EDT Height 149.9 cm (4' 11 ) 05/13/2024 9:18 AM EDT Body Mass Index 28.64 05/13/2024 9:18 AM EDT Plan of Treatment Upcoming Encounters Date Type Department Care Team (Late st Contact Info) Description 08/14/2024 9:45 AM EDT Office Visit Adult [facility] [place] [address], [place] [phone] Alessia Montez PA [address], [place] 11/04/2024 9:00 AM EDT Appointment Radiology Department - [address] [phone] 11/04/2024 10:00 AM EDT Appointment Bone Density - [address] [phone] Health Maintenance Due Date Last Done Comments Hepatitis A Vaccines (1 of 2 - Risk 2-dose series) 1977 RSV Immunization Adult Patients (1 - Risk 60-74 years 1-dose series) 2018 Medicare Annual Wellness Visit 01/14/2022 COVID-19 Vaccine ( season) 2023 11/03/2022, 12/02/2021, 01/13/2021, Additional history exists Colorectal Cancer Screening: Colonoscopy 08/24/2024 08/25/2019 Depression Screening 10/04/2024 10/05/2023 Falls Risk Assessment 10/04/2024 10/05/2023 Influenza Vaccine (#1) 2024 , 10/17/2022, 10/12/2021, Additional history exists Lung Cancer Screening (Low Dose CT) 11/20/2024 11/21/2023, 11/21/2023, 11/15/2022, Additional history exists Breast Cancer Screening 11/30/2024 12/01/19 23, 11/25/2021, 11/23/2020, Additional history exists Cervical Cancer Screening: Pap Smear 04/07/2025 04/07/2024, 04/07/2024, 07/24/2019, Additional history exists Social Influencers of Health Screening 05/13/2025 05/13/2024 Hypertension/CHF/CAD Annual BMP Blood Test 08/05/2025 08/05/2024, 11/08/2023, 11/08/2023, Additional history exists Osteoporosis Screening (Bone Density Screening) 06/22/2027 06/21/2022 Cholesterol Screening (Lipid Panel) 08/05/2029 08/05/2024, 05/31/2023 DTaP,Tdap,and Td Vaccines (4 - Td or Tdap) 05/12/2032 05/12/2022, 08/28/2012, 03/04/2004 Hepatitis C Screening Completed 01/12/2015 Zoster Vaccines Completed 06/25/2020, 12/18/2019 Pneumococcal Vaccine: 50+ Years Completed 10/05/2023, 02/27/2019, 07/26/2007 Pneumococcal Vaccine: Pediatrics (0 to 5 Years) and At-Risk Patients (6 to 49 Years) Completed 10/05/2023, 02/27/2019, 07/26/2007 HIB Vaccines Aged Out No longer eligi [...] Procedure Name Priority Date/Time Associated Diagnosis Comments CBC WITH AUTO DIFFERENTIAL Routine 08/05/2024 9:17 AM EDT Anxiety and depression Essential hypertension, benign Hypercholesterolemia Obstructive sleep apnea PVD (peripheral vascular disease) ([facility] V24) Tobacco use disorder Chronic obstructive pulmonary disease, unspecified COPD type ([facility] V24, [facility] V28) Osteopenia, unspecified location CBC AND DIFFERENTIAL Routine 08/05/2024 9:17 AM EDT Anxiety and depression Essential hypertension, benign Hypercholesterolemia Obstructive sleep apnea PVD (peripheral vascular disease) ([facility]/HCC V24) Tobacco use disorder Chronic obstructive pulmonary disease, unspecified COPD type (CMS/HCC V24, CMS/HCC V28) Osteopenia, unspecified location MAGNESIUM Routine 08/05/2024 9:17 AM EDT Leg cramping LIPID PANEL WITH REFLEX TO DIRECT LDL Routine 08/05/2024 9:17 AM EDT Anxiety and depression Essential hypertension, benign Hypercholesterolemia Obstructive sleep apnea PVD (peripheral vascular disease) ([facility]/HCC V24) Tobacco use disorder Chronic obstructive pulmonary disease, unspecified COPD type (CMS/HCC V24, CMS/HCC V28) Osteopenia, unspecified location COMPREHENSIVE METABOLIC PANEL Routine 08/05/2024 9:17 AM EDT Anxiety and depression Essential hypertension, benign Hypercholesterolemia Obstructive sleep apnea PVD (peripheral vascular disease) ([facility]/HCC V24) Tobacco use disorder Chronic obstructive pulmonary disease, unspecified COPD type (CMS/HCC V24, CMS/HCC V28) Osteopenia, unspecified location VITAMIN D 25 HYDROXY Routine 08/05/2024 9:17 AM EDT Anxiety and depression Essential hypertension, benign Hypercholesterolemia Obstructive sleep apnea PVD (peripheral vascular disease) ([facility]/HCC V24) Tobacco use disorder Chronic obstructive pulmonary disease, unspecified COPD type (CMS/HCC V24, CMS/HCC V28) Osteopenia, unspecified location IRON AND TIBC Routine 08/05/2024 9:17 AM EDT Leg cramping EXTERNAL CLINICAL LAB 07/18/2024 EXTERNAL VASCULAR ULTRASOUND 05/29/2024 EXTERNAL VASCULAR ULTRASOUND 05/29/2024 EXTERNAL ULTRASOUND REPORT 05/29/2024 HPV WITH REFLEX GENOTYPE Routine 04/07/2024 10:53 AM EST Encounter for annual routine gynecological examination CT LUNG SCREENING LOW DOSE Routine 11/21/2023 11:12 AM EDT Encounter for screening for malignant neoplasm of respiratory organs DEPRESSION SCREENING Routine 10/05/2023 FALLS RISK ASSESSMENT Routine 10/05/2023 SCREENING MAMMOGRAPHY BI 2-VIEW BREAST INC CAD [...] Recently Relevant to Health Maintenance Results * (ABNORMAL) Lipid panel with reflex to direct LDL (08/05/2024 9:17 AM EDT) Cholesterol 128 0 - 200 mg/dL LAB CHEMISTRY METHOD [facility] Triglycerides 177(H) 0 - 150 mg/dL LAB CHEMISTRY METHOD 08/05/2024 2:10 PM [facility] HDL 32(L) >=40 mg/dL LAB CHEMISTRY METHOD 08/05/2024 2:10 PM [facility] LDL Calculated 61 0 - 100 mg/dL LAB CHEMISTRY METHOD 08/05/2024 2:10 PM [facility] VLDL Cholesterol Osmar 35.4 mg/dL LAB CHEMISTRY METHOD 08/05/2024 2:10 PM T [facility] Non HDL Chol. (LDL+VLDL) 96 <145 mg/dL LAB CHEMISTRY METHOD 08/05/2024 2:10 PM [facility] Chol/HDL Ratio 4.0 0.0 - 4.4 LAB CHEMISTRY METHOD 08/05/2024 2:10 PM [facility] Blood Venous blood specimen / Unknown Venipuncture / Unknown 08/05/2024 9:17 AM EDT 08/05/2024 9:17 AM EDT us Benjamin VALENCIA LAB BLOOD ORDERABLES Luz oden Result [facility] [address] [place] [address], [place] [phone] * (ABNORMAL) CBC auto differential (08/05/2024 9:17 AM EDT) WBC 10.0 4.8 - 10.8 K/mcL LAB HEMETOLOGY METHOD 08/05/2024 11:12 AM EDT [facility] RBC 3.70(L) 3.80 - 4.80 M/mcL LAB HEMETOLOGY METHOD 08/05/2024 11:12 AM EDT [facility] Hemoglobin 11.7 11.5 - 16.0 g/dL LAB HEMETOLOGY METHOD 08/05/2024 11:12 AM EDT [facility] Hematocrit 36.0 35.0 - 47.0 % LAB HEMETOLOGY METHOD 08/05/2024 11:12 AM EDT [facility] MCV 98.6(H) 79.0 - 98.0 FL LAB HEMETOLOGY METHOD 08/05/2024 11:12 AM EDT [facility] MCH 32.1(H) 27.0 - 32.0 pcg LAB HEMETOLOGY METHOD 08/05/2024 11:12 AM EDT [facility] MCHC 32.5 32.0 - 37.0 g/dL LAB HEMETOLOGY METHOD 08/05/2024 11:12 AM EDT [facility] RDW 13.2 11.0 - 15.0 % LAB HEMETOLOGY METHOD 08/05/2024 11:[facility] Platelets 353 130 - 400 K/mcL LAB HEMETOLOGY METHOD 08/05/2024 11:12 AM EDT [facility] MPV 9.2 7.0 - 11.0 FL LAB HEMETOLOGY METHOD 08/05/2024 11:12 AM [facility] NRBC 0.0 <1.0 % LAB HEMETOLOGY METHOD 08/05/2024 11:12 AM [facility] NRBC Absolute 0.00 <0.10 K/mcL LAB HEMETOLOGY METHOD 08/05/2024 11:12 AM [facility] Neutrophils Relative 65.7 % LAB HEMETOLOGY METHOD 08/05/2024 11:12 AM [facility] Lymphocytes Relative 24.1 % LAB HEMETOLOGY METHOD 08/05/2024 11:12 AM [facility] Monocytes Relative 6.7 % LAB HEMETOLOGY METHOD 08/05/2024 11:12 AM [facility] Eosinophils Relative 2.4 % LAB HEMETOLOGY METHOD 08/05/2024 11:12 AM [facility] Basophils Relative 0.5 % LAB HEMETOLOGY METHOD 08/05/2024 11:12 AM [facility] Immature Granulocytes Relative 0.6 % LAB HEMETOLOGY METHOD 08/05/2024 11:12 AM [facility] Neutrophils Absolute 6.53 1.50 - 7.00 K/mcL LAB HEMETOLOGY METHOD 08/05/2024 11:12 AM [facility] Lymphocytes Absolute 2.40 1.00 - 5.00 K/mcL LAB HEMETOLOGY METHOD 08/05/2024 11:12 AM [facility] Monocytes Absolute 0.67 0.20 - 1.00 K/mcL LAB HEMETOLOGY METHOD 08/05/2024 11:12 AM [facility] Eosinophils Absolute 0.24 0.00 - 0.50 K/mcL LAB HEMETOLOGY METHOD 08/05/2024 11:12 AM EDT [facility] Basophils Absolute 0.05 0.00 - 0.20 K/mcL LAB HEMETOLOGY METHOD 08/05/2024 11:12 AM EDT [facility] Immature Granulocytes Absolute 0.06(H) 0.00 - 0.03 K/mcL LAB HEMETOLOGY METHOD 08/05/2024 11:12 AM EDT [facility] Blood Venous blood specimen / Unknown Venipuncture / Unknown 08/05/2024 9:17 AM EDT 08/05/2024 9:17 AM EDT Benjamin VALENCIA LAB BLOOD ORDERABLES Luz l Result Performing Organization Address [facility] de Phone Number [facility] [address] [place] [address], * Iron and TIBC (08/05/2024 9:17 AM EDT) Pathologist [facility] Iron 69 40 - 150 mcg/dL LAB CHEMISTRY METHOD 08/05/2024 2:10 PM EDT [facility] TIBC 294 250 - 450 mcg/dL LAB CHEMISTRY METHOD 08/05/2024 2:10 PM EDT [facility] Iron Saturation 23 15 - 50 % LAB CHEMISTRY METHOD 08/05/2024 2:10 PM EDT [facility] Blood Venous blood specimen / Unknown Venipuncture / Unknown 08/05/2024 9:17 AM EDT 08/05/2024 9:17 AM EDT Alessia VALENCIA LAB BLOOD ORDERABLES Final Resul t Performing Organization Address [facility]/ZIP Co de Phone Number [facility] [address] [place] [address], [place] [phone] * Vitamin D 25 hydroxy (08/05/2024 9:17 AM EDT) Vit D, 25-Hydroxy 44.4 30.0 - 80.0 ng/mL LAB CHEMISTRY METHOD 08/05/2024 3:03 PM EDT [facility] Blood Venous blood specimen / Unknown Venipuncture / Unknown 08/05/2024 9:17 AM EDT 08/05/2024 9:17 AM EDT Benjamin VALENCIA LAB BLOOD ORDERABLES Luz l Result Performing Organization Address [facility]/ZIP Co de Phone Number [facility] [address] [place] [address], [place] [phone] * Magnesium (08/05/2024 9:17 AM EDT) [facility] Magnesium 1.9 1.9 - 2.6 mg/dL LAB CHEMISTRY METHOD 08/05/2024 2:00 PM EDT [facility] Blood Venous blood specimen / Unknown Venipuncture / Unknown 08/05/2024 9:17 AM EDT 08/05/2024 9:17 AM EDT Alessia VALENCIA LAB BLOOD ORDERABLES Final Resul t Performing Organization Address [facility] de Phone Number [facility] [address] [place] [address], [place] [phone] * (ABNORMAL) Comprehensive metabolic panel (08/05/2024 9:17 AM EDT) Pathologist [facility] Sodium 133 133 - 145 mmol/L LAB CHEMISTRY METHOD 08/05/2024 2:10 PM EDT [facility] Potassium 4.8 3.5 - 5.5 mmol/L LAB CHEMISTRY METHOD 08/05/2024 2:10 PM EDT [facility] Chloride 100 96 - 110 mmol/L LAB CHEMISTRY METHOD 08/05/2024 2:10 PM EDT [facility] CO2 26 21 - 32 mmol/L LAB CHEMISTRY METHOD 08/05/2024 2:10 PM [facility] Anion Gap 7 3 - 11 LAB CHEMISTRY METHOD 08/05/2024 2:10 PM [facility] Glucose 92 70 - 100 mg/dL LAB CHEMISTRY METHOD 08/05/2024 2:10 PM [facility] BUN 15 5 - 25 mg/dL LAB CHEMISTRY METHOD 08/05/2024 2:10 PM [facility] Creatinine 1.28(H) 0.50 - 1.10 mg/dL LAB CHEMISTRY METHOD 08/05/2024 2:10 PM [facility] eGFR 47(L) >=60 mL/min/1. 73m2 LAB CHEMISTRY METHOD 08/05/2024 2:10 PM [facility] Comment:Calculation based on the Chronic Kidney Disease Epidemiology Collaboration (CKD-EPI) equation refit without adjustment for race. BUN/Creatinine Ratio 11.7 LAB CHEMISTRY METHOD 08/05/2024 2:10 PM [facility] Calcium 8.8 8.5 - 10.5 mg/dL LAB CHEMISTRY METHOD 08/05/2024 2:10 PM [facility] AST (SGOT) 12 10 - 42 unit/L LAB CHEMISTRY METHOD 08/05/2024 2:10 PM [facility] ALT (SGPT) 13 10 - 60 unit/L LAB CHEMISTRY METHOD 08/05/2024 2:10 PM [facility] Alkaline Phosphatase 94 42 - 121 unit/L LAB CHEMISTRY METHOD 08/05/2024 2:10 PM [facility] Total Protein 6.7 6.0 - 8.0 g/dL LAB CHEMISTRY METHOD 08/05/2024 2:10 PM [facility] Albumin 3.5 3.2 - 5.0 g/dL LAB CHEMISTRY METHOD 08/05/2024 2:10 PM [facility] Total Bilirubin 0.4 0.0 - 1.4 mg/dL LAB CHEMISTRY METHOD 08/05/2024 2:10 PM EDT [facility] Blood Venous blood specimen / Unknown Venipuncture / Unknown 08/05/2024 9:17 AM EDT 08/05/2024 9:17 AM EDT Benjamin VALENCIA LAB BLOOD ORDERABLES Luz l Result Performing Organization Address City/[facility]/ZIP Co de Phone Number [facility] [address] [place] [address], [place] [phone] * External clinical lab (07/18/2024) us Provider [facility] LAB BLOOD ORDERABLES Fin al Result * External Vascular Ultrasound (05/29/2024) Only the most recent of2 resultswithin the time period is included. Anatomical Region Laterality Modality Ultrasound us Provider [facility] CV VASCULAR PROCEDURES F inal Result * External Ultrasound Report (05/29/2024) Anatomical Region Laterality Modality Ultrasound us Provider [facility] IMG US PROCEDURES Final Result * HPV with reflex genotype (04/07/2024 10:53 AM EST) HPV Negative Negative LAB MICROBIOLOGY METHOD 04/09/2024 3:03 PM EST [facility] Brushing/Spatula Cervix uteri structure / Unknown 04/07/2024 10:53 AM EST 04/08/2024 6:19 AM EST Radha Sandoval CNM LAB MOLECULAR DIAGNOSTICS ORDER KENNEDY Final Result Performing Organization Address [facility]/ZIP Co de Phone Number [facility] [address] [place] [address], [place] [phone] * CT LUNG SCREENING LOW DOSE (11/21/2023 11:12 AM EDT) Anatomical Region Laterality Modality Computed Tomogra phy 11/21/2023 7:23 AM EDT Narrative 11/21/2023 11:12 AM EDT [facility] Diagnostic Imaging Department [address] [place] [id number] Patient: SONI VALDES /Age/Sex: 1960 - 63 - F Unit#: [id number] Location/Status: SPDICATLS/REG CLI Mnemonic/Ordering Site: [facility] Ordering Physician: SAM ALVA MD CT Lung [...] in the coronal and sagittal planes. Device: [employer] DLP: 101 mGy-cm CTDI: 2.85 Dose optimization [...] UPPER ABDOMEN: No suspicious abnormality on limited assessment of the [...] Date/Time: 11/21/23 1058 Sign date/Time: 11/21/23 1112 Procedure Note Sal Huerta MD - 12/04/2023 [facility] Diagnostic Imaging Department [address] [place] [address] [id number] Patient: SONI VALDESO.B./Age/Sex: 1960 - 63 - F Unit#: [id number] Location/Status: [facility]/REG CLI Mnemonic[facility] Ordering Physician: SAM ALVA MD CT Lung [...] in the coronal and sagittal planes. Device: [employer] [place] DLP: 101 mGy-cm CTDI: 2.85 Dose optimization [...] 11/21/23 1058 Sign date/Time: 11/21/23 1112 Result [facility] Sam Alva MD IMG CT PROCEDURES Final Result * Falls Risk Assessment (10/05/2023) Falls Risk Assessment abstracted Result [facility] Historical Provider HEALTH MAINTENANCE Final Result * Depression Screening (10/05/2023) Depression Screening abstracted [facility] Provider HEALTH MAINTENANCE Final Result * SCREENING MAMMOGRAPHY BI 2-VIEW BREAST [...] 06/21/2022 2:49 PM EDT BONE DENSITY (DEXA) Lumbar Spine T-score is 0.0. (SD relative to 20-29 y/o adult) Z-score is 1.7. (SD relative to age matched peers) This is considered normal by WHO criteria. Left Hip T-score is -3.5. Z-score is -2.0. This is considered osteoporosis by WHO criteria. IMPRESSION: This patient is considered to have osteoporosis by WHO criteria. The [facility] Department of Internal Medicine recommends using National [...] alternative screening schedule based on amber Rodriguez., [facility] February 23, 2011 for patients with [...] to have osteoporosis by WHO criteria. The [facility] Department of Internal Medicine recommendsusing National Osteoporosis [...] alternative screening schedule based on amber Rodriguez., [facility] for patients with osteopenia (based on hip BMD T-score) is as follows: * advanced osteopenia (T scores -2.00 to -2.49), BMD testing every year * moderate osteopenia (T scores -1.50 to -1.99), BMD testing every 5years mild osteopenia or normal BMD (T scores -1.50 and higher), BMD testingevery 15 years Aaron Guerrero DO IMG DXA PROCEDURES Final Resu lt * Colonoscopy (08/25/2019) [facility] Colonoscopy no interpretation , abstracted Anatomical Region Laterality Modality Other Historical Provider HEALTH MAINTENANCE Final Result * Hepatitis C Screening (01/12/2015) [facility] Hepatitis C Screening abstracted Historical Provider HEALTH MAINTENANCE Final Result from Last 3 Months or Most Recently Relevant to Health Maintenance Insurance [facility] [employer] Member Subscriber Plan / Payer (Ef fective 2024-Present) Name:Soni Valdes Relation to Subscriber:Self Name:Soni Valdes Payer ID:[id number] Group ID:Not on file Type:Not on file Address: [facility] [address] [id number] Advance Directives Documents on File Type Date Recorded 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
[2024-08-12] MEDS: iohexoL 350 MG/ML 100 ML INFUS..BTL IV (15:17)
== END 2024-08-12 13:43 | disposition home or self-care (01) ==
LOC: HO.CT 13:42
PROVIDERS: PCP Physician Assistant Medical; Visit Provider Surgery Vascular Surgery
DX: I73.9 Peripheral vascular disease, unspecified (principal)
CPT/HCPCS: 75635; Q9967

== ENCOUNTER → 2024-08-12 13:45 | Outpatient (BNV) | payer OTHER, SELFPAY | PROVIDERS: PCP Physician Assistant Medical; Visit Provider Radiology Diagnostic Radiology | DX: I73.9 Peripheral vascular disease, unspecified (principal) | CPT/HCPCS: 75635 ==

== ENCOUNTER 2024-08-28 11:08 | Outpatient (AMB) | payer OTHER, SELFPAY ==
[2024-08-28 11:13] VITALS: BMI 28.8
--- NOTE | 2024-08-28 11:13 | A.OFFVIS_ITS ---
Vital Signs 08/28/24 11:13 Height 4 ft 9 in Weight 133 lb BMI 28.8 Intake Visit Reasons: follow up s/p CTA Abd 08/12/24 Intake Note: follow up CTA w/ runoff 08/12/24. Pt states Right LE increased pain. Hx of Left fem-pop bypass 2019 & Right Angio 2018. Pt states that she cant walk 8 feet, using walker Accompanied by: Self / Same As Patient Allergies MIKAELA Inhibitors Allergy (Intermediate, Verified 08/28/24 11:17) hyperkalemia methadone Allergy (Mild, Verified 08/28/24 11:17) Hives atorvastatin Allergy (Unknown, Verified 08/28/24 11:17) facial swelling, rash propoxyphene (From DARVOCET-N) Allergy (Unknown, Verified 08/28/24 11:17) ITCHY RASH HPI HPI follow up s/p CTA Abd 08/12/24: Details: 64-year-old female presents for follow-up regarding peripheral vascular disease. She had presented about a month ago after she was lost to follow-up. She actually had a left fem-pop bypass in 2019. She had undergone right SFA stenting as well. She complained of significant right lower extremity pain. It has gotten to the point where she is having difficulty ambulating in his requiring the use of walker. She now presents for follow-up with CT angiogram. [facility] Surgical History S/P debridement (08/29/17) S/P debridement (04/21/17) Status post angioplasty S/P angiogram of extremity History of femoropopliteal bypass Hx of cholecystectomy Family History Father No problems noted. Mother No problems noted. Social History (Updated 08/28/24 @ 11:18 by JOSÉ MIGUEL Ly) Patient Tobacco Use Status: Current everyday Tobacco user Tobacco use type: Cigarette Cigarettes Per Day: 8 Review of Systems Const All systems reviewed & are unremarkable except as noted in HPI and below Reports no additional complaints ENT Reports Normal hearing present Card Denies chest pain, Denies chest pain at rest, Denies chest pain with activity and Denies pedal edema Resp Denies cough GI Denies abdominal pain Musc Denies abnormal gait, Denies muscle cramps and Denies radiating pain into limb Skin/Breast Denies skin ulcer and Denies wounds Neuro Reports Normal hearing present and Denies abnormal gait Psych Reports no additional complaints Physical Exam Vital Signs: BMI result Body Mass Index 28.8 Const General: cooperative, healthy appearing and comfortable Orientation/consciousness: oriented to person, oriented to place and oriented to time HEENT Head: Yes normal to inspection Neck Neck: Yes normal visual inspection Carotids: no bruits Chest Chest palpation & inspection: normal inspection of the chest Resp Effort & Inspection: normal respiratory effort and able to speak in complete sentences Auscultation: clear to auscultation bilaterally, no crackles, no rales, no rhonchi and no wheezes Cardio Other: Bilateral DP signals Rate: regular rate Rhythm: regular rhythm Heart sounds: S1 normal heart sound present and S2 normal heart sound present Bruits: no carotid bruits GI Inspection: Yes normal to inspection Skin Wounds: no wounds Hair: normal Neuro General: oriented to person, oriented to place and oriented to time Cranial nerves: Yes CN's II-XII intact bilaterally and Yes Normal hearing present Cognition (Neuro): normal cognition Motor exam (neuro): 5/5 motor strength present throughout Extrem Other: venous exam: No significant superficial varicosities or spider telangiectasias, minimal edema General: No clubbing, No cyanosis and No edema Psych Appearance: grossly normal Mental Status: mental status grossly normal Speech and movement: Normal speech and movement present Results Reviewed Results Reviewed: CT angiogram dated 08/12/2024 was reviewed. Concerns of graft stenosis and popliteal stenosis on the left. Right iliac disease as well. Written report and images were reviewed. Assessment & Plan Assessment & Plan (1) PAD (peripheral artery disease): Comment: February 2018 - left femoral to above knee popliteal bypass June 2017 - right SFA stent Code(s): I73.9 - Peripheral vascular disease, unspecified Category: Medical Plan: Patient notes leg pain when walking distances. I have discussed the pathophysiology of peripheral vascular disease with the patient. I have also discussed risk factor modification. I have reviewed the patient's CT scan which reveals left distal graft and popliteal artery disease. the patient would benefit from a left leg endovascular peripheral angiogram with possible angioplasty, stent, and/or atherectomy. This has been discussed in detail with the patient along with risks, benefits, and complications. This includes but is not limited to bleeding, infection, heart attack, need for emergent surgical repair, limb ischemia, blood vessel damage, bleeding, puncture, kidney injury, bruising, allergic reaction, and skin reaction. The patient demonstrates a clear understanding. We will schedule for the next appropriate time. Thank you for allowing us to assist in this patient's care. Coding Level of Care Code Est Pt Level 4 (76920) Complex EM visit Add On G2211 Diagnoses PAD (peripheral artery disease) I73.9
--- OUTSIDE RECORDS SUMMARY | 2024-08-28 12:04 | XMS_ITS | Clinical Summary ---
Author Organization [address] [facility] Address [address] [place] [address] Phone Care Team Providers Care Statistics Tutor Name Role Phone Benjamin Escalera Primary Care Provider [phone] Allergies Active Allergy Reactions Criticality Noted Date [...] 1 (one) time each day. 4 Active albuterol HFA (PROAIR HFA ; PROVENTIL HFA ; VENTOLIN HFA) 90 mcg/actuation inhaler Inhale 2 Puffs into the lungs every 4 hours as needed for Wheezing for up to 30 days. 3 Active umeclidinium-luke nteroL (ANORO ELLIPTA) 62.5-25 mcg/actuation inhaler Inhale 1 Puff into the lungs daily. 2 Active ipratropium-albut Paolo (DUONEB) 0.5-2.5 mg/3 mL nebulizer solution Inhale 3 mL into the lungs 4 times daily. 1 Active medical supply, miscellaneous (MISCELLANEOUS MEDICAL SUPPLY MIS) SPACER DEVICE- Use with inhaler 0 Active [...] for 2 weeks 15 g 5 Active LORazepam (ATIVAN) 1 mg tabletIndications :Anxiety and depression,Essent ial hypertension, benign,Hyperchole sterolemia,Obstru ctive sleep apnea,PVD (peripheral vascular disease) ([facility] V24),Tobacco use disorder,Chronic obstructive pulmonary disease, unspecified COPD type ([facility] V24, [facility] V28),Osteopenia, unspecified location Take 1 tablet (1 mg total) by mouth every 8 (eight) hours if needed for anxiety. Max Daily Amount: 3 mg 84 tablet 5 Active spironolactone (ALDACTONE) 25 mg tablet Take 1 tablet (25 mg total) by mouth 1 (one) time each day. 90 tablet 1 5 Active celecoxib (CeleBREX) 200 mg capsule Take 1 capsule (200 mg total) by mouth 2 (two) times a day. 4 08/15/19 25 Discontin ued(Thera py completed ) mirtazapine (REMERON) 30 mg tablet 4 08/15/19 25 Discontin ued(Thera py completed ) spironolactone (ALDACTONE) 25 mg tablet TAKE ONE TABLET DAILY 30 tablet 5 5 08/15/19 25 Discontin ued(Reord er) Active Problems Problem Noted Date Diagnosed Date PVD (peripheral vascular disease) ([facility] V24) 09/03/2019 Cannabis abuse 02/27/2019 Centrilobular emphysema ([facility] V24, [facility] V2 8) 02/27/2019 Dilated bile duct 03/13/2018 Overview (11/28/2023): Dieterich to have papillary stenosis related to remote cholecystectomy. Anxiety and depression 08/13/2017 Tobacco use disorder 08/13/2017 Overview (11/28/2023): Last Assessment & Plan: Encouraged cessation Chronic ulcer of right heel ([facility] V24, [facility] V28) 01/02/2017 Overview (11/28/2023): Underlying osteomyelitis, angioplasty with stent, 10/23/2017 Calcaneus fracture, right 11/28/2016 Overview (11/28/2023): CT scan 09/11/2016 Colon polyps 09/01/2016 Alcohol abuse, daily use 05/03/2016 Closed bimalleolar fracture of right ankle 09/29 Overview (11/28/2023): 2014 Obstructive sleep apnea 01/12/2015 COPD (chronic obstructive pu lmonary disease) ([facility] V24, [facility] V28) 10/05/2011 Osteopenia 07/28/2010 Essential hypertension, benign 03/22/2006 Overview (11/28/2023): Last Assessment & Plan: Has follow up appt with Dr. Gaona in August for med adjustment. Allergic rhinitis 03/08/2005 Hypercholesterolemia 03/08/2005 Encounters Date Type Department Care Team Description 08/14/2024 9:45 AM EDT Office Visit Adult Medicine [address] [phone] Alessia Montez PA Essential hypertension, benign (Primary Dx); Stage 3a chronic kidney disease ([facility] V24, [facility] V28); Hypercholesterolemia; Anxiety and depression; Encounter for long-term (current) use of medications; Centrilobular emphysema ([facility] V24, [facility] V28); Tobacco use disorder; Alcohol abuse, daily use; PVD (peripheral vascular disease) ([facility] V24); Elevated MCV; Colon cancer screening from Last 3 Months Immunizations Name Administration [...] CHOLECYSTECTOMY 1984 PROCEDURE: HISTORICAL CHOLECYSTECTOMY SECTION PROCEDURE: [place] DELIVERY ONLY; COMMENT: times 2 OTHER SURGICAL HISTORY 1987 PROCEDURE: NH LIG/TRNSXJ FLP TUBE ABDL/VAG APPR UNI/BI KNEE SURGERY 1973 PROCEDURE: HISTORICAL KNEE SURGERY; COMMENT: left MULTIPLE TOOTH EXTRACTIONS PROCEDURE: HISTORICAL DENTAL EXTRACTION BREAST BIOPSY 2014 Right PROCEDURE: BX BREAST; PERC NEEDLE CORE W/IMAG GUID; COMMENT: b9 COLONOSCOPY 2006 PROCEDURE: HISTORICAL COLONOSCOPY; COMMENT: normal with normal random bx. UPPER GASTROINTESTINAL ENDOSCOPY 2006 PROCEDURE: [place] UPPER GI ENDOSCOPY PERFORMED; COMMENT: normal with [...] essential hypertension Chronic obstructive lung dis ease ([facility] [place], [facility] V[place]) 07/26/2007 DX:Chronic obstructive lung disease (HCC) COPD (chronic obstructive pu lmonary disease) ([facility] [place], [facility] V28) 10/05/2011 DX:COPD (chronic o [...] for your loved ones. For example, child development assistant or elderly care for an older [...] Sign Reading Time Taken Comments Blood Pressure 117/64 08/14/2024 9:46 AM EDT Pulse 61 08/14/2024 9:46 AM EDT Temperature 36.7 C (98 F) 08/14/2024 9:46 AM EDT Respiratory Rate 15 08/14/2024 9:46 AM EDT Oxygen Saturation 98% 05/13/2024 9:18 AM EDT Inhaled Oxygen Concentration - - Weight 66.2 kg (146 lb) 08/14/2024 9:46 AM EDT Height 149.9 cm (4' 11 ) 08/14/2024 9:46 AM EDT Body Mass Index 29.49 08/14/2024 9:46 AM EDT Plan of Treatment Upcoming Encounters Date Type Department Care Team (Late st Contact Info) Description 10/27/2024 12:45 PM EDT Appointment [facility] Endoscopy [address] [place] [address] Trung Daniel MD [address] [address] 11/04/2024 9:00 AM EDT Appointment Radiology Department - [address] [phone] 11/04/2024 10:00 AM EDT Appointment Bone Density - [address] [phone] 12/05/2024 11:00 AM EDT Office Visit [facility] - [address] [phone] Benjamin Escalera PA [address] [place], [place] Health Maintenance Due Date Last Done Comments Hepatitis A Vaccines (1 of 2 - Risk 2-dose series) 1977 RSV Immunization Adult Patients (1 - Risk 60-74 years 1-dose series) 2018 Medicare Annual Wellness Visit 01/14/2022 COVID-19 Vaccine ( season) 2023 11/03/2022, 12/02/2021, 01/13/2021, Additional history exists Depression Screening 02/06/2024 10/05/2023 Colorectal Cancer Screening: Colonoscopy 08/24/2024 08/25/2019 Falls Risk Assessment 10/04/2024 10/05/2023 Influenza Vaccine [...] Vaccine: 50+ Years Completed 10/05/2023, 02/27/2019, 07/26/2007 HIB Vaccines Aged [...] Name Priority Date/Time Associated Diagnosis Comments EXTERNAL CT REPORT 08/12/[address] REPORT 08/12/2024 CBC WITH AUTO DIFFERENTIAL Routine 08/05/2024 9:17 AM EDT Anxiety and depression Essential hypertension, benign Hypercholesterolemia Obstructive sleep apnea PVD (peripheral vascular disease) ([facility] V24) Tobacco use disorder Chronic obstructive pulmonary disease, unspecified COPD type ([facility] V24, [facility] V28) Osteopenia, unspecified location CBC AND DIFFERENTIAL Routine 08/05/2024 9:17 AM EDT Anxiety and depression Essential hypertension, benign Hypercholesterolemia Obstructive sleep apnea PVD (peripheral vascular disease) ([facility] V24) Tobacco use disorder Chronic obstructive pulmonary disease, unspecified COPD type ([facility] V24, [facility] V28) Osteopenia, unspecified location MAGNESIUM Routine 08/05/2024 9:17 AM EDT Leg cramping LIPID PANEL WITH REFLEX TO DIRECT LDL Routine 08/05/2024 9:17 AM EDT Anxiety and depression Essential hypertension, benign Hypercholesterolemia Obstructive sleep apnea PVD (peripheral vascular disease) ([facility] V24) Tobacco use disorder Chronic obstructive pulmonary disease, unspecified COPD type ([facility] V24, [facility] V28) Osteopenia, unspecified location COMPREHENSIVE METABOLIC PANEL Routine 08/05/2024 9:17 AM EDT Anxiety and depression Essential hypertension, benign Hypercholesterolemia Obstructive sleep apnea PVD (peripheral vascular disease) ([facility] V24) Tobacco use disorder Chronic obstructive pulmonary disease, unspecified COPD type ([facility] V24, [facility] V28) Osteopenia, unspecified location VITAMIN D 25 HYDROXY Routine 08/05/2024 9:17 AM EDT Anxiety and depression Essential hypertension, benign Hypercholesterolemia Obstructive sleep apnea PVD (peripheral vascular disease) ([facility] V24) Tobacco use disorder Chronic obstructive pulmonary disease, unspecified COPD type ([facility] V24, [facility] V28) Osteopenia, unspecified location IRON AND TIBC [...] Relevant to Health Maintenance Results * External CT Report (08/12/2024) Only the most recent of2 resultswithin the time period is included. Anatomical Region Laterality Modality Computed Tomogra phy us Provider [facility] PROCEDURES Final Result * (ABNORMAL) Lipid panel with reflex to direct LDL (08/05/2024 9:17 AM EDT) Cholesterol 128 0 - 200 mg/dL LAB CHEMISTRY METHOD 08/05/2024 2:10 PM EDT [facility] Triglycerides 177(H) 0 - 150 mg/dL LAB CHEMISTRY METHOD 08/05/2024 2:10 PM EDT [facility] HDL 32(L) >=40 mg/dL LAB CHEMISTRY METHOD 08/05/2024 2:10 PM EDT [facility] LDL Calculated 61 0 - 100 mg/dL LAB CHEMISTRY METHOD 08/05/2024 2:10 PM EDT [facility] VLDL Cholesterol Osmar 35.4 mg/dL LAB CHEMISTRY METHOD 08/05/2024 2:10 PM EDT [facility] Non HDL Chol. (LDL+VLDL) 96 <145 mg/dL LAB CHEMISTRY METHOD 08/05/2024 2:10 PM T [facility] Chol/HDL Ratio 4.0 0.0 - 4.4 LAB CHEMISTRY METHOD 08/05/2024 2:10 PM [facility] Blood Venous blood specimen / Unknown Venipuncture / Unknown 08/05/2024 9:17 AM EDT 08/05/2024 9:17 AM EDT us Benjamin VALENCIA LAB BLOOD ORDERABLES Luz l Result [facility] [address] [place] [address], * (ABNORMAL) CBC auto differential (08/05/2024 9:17 AM EDT) WBC 10.0 4.8 - 10.8 K/mcL LAB HEMETOLOGY METHOD 08/05/2024 11:12 AM T [facility] RBC 3.70(L) 3.80 - 4.80 M/mcL LAB HEMETOLOGY METHOD 08/05/2024 11:12 AM T [facility] Hemoglobin 11.7 11.5 - 16.0 g/dL LAB HEMETOLOGY METHOD 08/05/2024 11:12 AM T [facility] Hematocrit 36.0 35.0 - 47.0 % LAB HEMETOLOGY METHOD 08/05/2024 11:12 AM [facility] MCV 98.6(H) 79.0 - 98.0 FL LAB HEMETOLOGY METHOD 08/05/2024 11:12 AM [facility] MCH 32.1(H) 27.0 - 32.0 pcg LAB HEMETOLOGY METHOD 08/05/2024 11:12 AM [facility] MCHC 32.5 32.0 - 37.0 g/dL LAB HEMETOLOGY METHOD 08/05/2024 11:12 AM [facility] RDW 13.2 11.0 - 15.0 % LAB HEMETOLOGY METHOD 08/05/2024 11:12 AM [facility] Platelets 353 130 - 400 K/mcL LAB HEMETOLOGY METHOD 08/05/2024 11:12 AM [facility] MPV 9.2 7.0 - 11.0 FL LAB HEMETOLOGY METHOD 08/05/2024 11:12 AM [facility] NRBC 0.0 <1.0 % LAB HEMETOLOGY METHOD 08/05/2024 11:12 AM [facility] NRBC Absolute 0.00 <0.10 K/mcL LAB HEMETOLOGY METHOD 08/05/2024 11:12 AM [facility] Neutrophils Relative 65.7 % LAB HEMETOLOGY METHOD 08/05/2024 11:12 AM [facility] Lymphocytes Relative 24.1 % LAB HEMETOLOGY METHOD 08/05/2024 11:12 AM [facility] Monocytes Relative 6.7 % LAB HEMETOLOGY METHOD 08/05/2024 11:12 AM [facility] Eosinophils Relative 2.4 % LAB HEMETOLOGY METHOD 08/05/2024 11:12 AM [facility] Basophils Relative 0.5 % LAB HEMETOLOGY METHOD 08/05/2024 11:12 AM EDT [facility] Immature Granulocytes Relative 0.6 % LAB HEMETOLOGY METHOD [facility]/05[facility]24 [facility] Neutrophils Absolute 6.53 1.50 - 7.00 K/mcL LAB HEMETOLOGY METHOD 08/05/2024 11:12 AM T [facility] Lymphocytes Absolute 2.40 1.00 - 5.00 K/mcL LAB HEMETOLOGY METHOD 08/05/2024 11:12 AM EDT [facility] Monocytes Absolute 0.67 0.20 - 1.00 K/mcL LAB HEMETOLOGY METHOD 08/05/2024 11:12 AM [facility] Eosinophils Absolute 0.24 0.00 - 0.50 K/mcL LAB HEMETOLOGY METHOD 08/05/2024 11:12 AM [facility] Basophils Absolute 0.05 0.00 - 0.20 K/mcL LAB HEMETOLOGY METHOD 08/05/2024 11:12 AM [facility] Immature Granulocytes Absolute 0.06(H) 0.00 - 0.03 K/mcL LAB HEMETOLOGY METHOD 08/05/2024 11:12 AM [facility] Blood Venous blood specimen / Unknown Venipuncture / Unknown 08/05/2024 9:17 AM EDT 08/05/2024 9:17 AM EDT us Benjamin VALENCIA LAB BLOOD ORDERABLES Luz oden Result [facility] [address] [place] [address], * Iron and TIBC (08/05/2024 9:17 AM EDT) [facility] Signature Iron 69 40 - 150 mcg/dL LAB CHEMISTRY METHOD 08/05/2024 2:10 PM EDT [facility] TIBC 294 250 - 450 mcg/dL LAB CHEMISTRY METHOD 08/05/2024 2:10 PM EDT [facility] Iron Saturation 23 15 - 50 % LAB CHEMISTRY METHOD 08/05/2024 2:10 PM EDT [facility] Blood Venous blood specimen / Unknown Venipuncture / Unknown 08/05/2024 9:17 AM EDT 08/05/2024 9:17 AM EDT Alessia VALENCIA LAB BLOOD ORDERABLES Final Resul t Performing Organization Address City/[facility]/ZIP Co de Phone Number [facility] [address] [place] [address], [place] [phone] * Vitamin D 25 hydroxy (08/05/2024 9:17 AM EDT) Vit D, 25-Hydroxy 44.4 30.0 - 80.0 ng/mL LAB CHEMISTRY METHOD 08/05/2024 3:03 PM EDT [facility] Blood Venous blood specimen / Unknown Venipuncture / Unknown 08/05/2024 9:17 AM EDT 08/05/2024 9:17 AM EDT Benjamin VALENCIA LAB BLOOD ORDERABLES Luz l Result [facility] [address] [place] [address], [place] [phone] * Magnesium (08/05/2024 9:17 AM EDT) Magnesium 1.9 1.9 - 2.6 mg/dL LAB CHEMISTRY METHOD 08/05/2024 2:00 PM EDT [facility] Blood Venous blood specimen / Unknown Venipuncture / Unknown 08/05/2024 9:17 AM EDT 08/05/2024 9:17 AM EDT us Alessia Tc VALENCIA LAB BLOOD ORDERABLES Final Resul t [facility] [address] [place] [address], * (ABNORMAL) Comprehensive metabolic panel (08/05/2024 9:17 AM EDT) Sodium 133 133 - 145 mmol/L LAB CHEMISTRY METHOD 08/05/2024 2:10 PM [facility] Potassium 4.8 3.5 - 5.5 mmol/L LAB CHEMISTRY METHOD 08/05/2024 2:10 PM [facility] Chloride 100 96 - 110 mmol/L LAB CHEMISTRY METHOD 08/05/2024 2:10 PM [facility] CO2 26 21 - 32 mmol/L LAB CHEMISTRY METHOD 08/05/2024 2:10 PM [facility] Anion Gap 7 3 - 11 LAB CHEMISTRY METHOD 08/05/2024 2:10 PM [facility] Glucose 92 70 - 100 mg/dL LAB CHEMISTRY METHOD 08/05/2024 2:10 PM [facility] BUN 15 5 - 25 mg/dL LAB CHEMISTRY METHOD 08/05/2024 2:10 PM [facility] Creatinine 1.28(H) 0.50 - 1.10 mg/dL LAB CHEMISTRY METHOD 08/05/2024 2:10 PM [facility] eGFR 47(L) >=60 mL/min/1. 73m2 LAB CHEMISTRY METHOD 08/05/2024 2:10 PM [facility] Comment:Calculation based on the Chronic Kidney Disease Epidemiology Collaboration (CKD-EPI) equation refit without adjustment for race. BUN/Creatinine Ratio 11.7 LAB CHEMISTRY METHOD 08/05/2024 2:10 PM [facility] Calcium 8.8 8.5 - 10.5 mg/dL LAB CHEMISTRY METHOD 08/05/2024 2:10 PM EDT [facility] AST (SGOT) 12 10 - 42 unit/L LAB CHEMISTRY METHOD 08/05/2024 2:10 PM EDT [facility] ALT (SGPT) 13 10 - 60 unit/L LAB CHEMISTRY METHOD 08/05/2024 2:10 PM EDT [facility] Alkaline Phosphatase 94 42 - 121 unit/L LAB CHEMISTRY METHOD 08/05/2024 2:10 PM EDT [facility] Total Protein 6.7 6.0 - 8.0 g/dL LAB CHEMISTRY METHOD 08/05/2024 2:10 PM EDT [facility] Albumin 3.5 3.2 - 5.0 g/dL LAB CHEMISTRY METHOD 08/05/2024 2:10 PM EDT [facility] Total Bilirubin 0.4 0.0 - 1.4 mg/dL LAB CHEMISTRY METHOD 08/05/2024 2:10 PM EDT [facility] Blood Venous blood specimen / Unknown Venipuncture / Unknown 08/05/2024 9:17 AM EDT 08/05/2024 9:17 AM EDT Benjamin VALENCIA LAB BLOOD ORDERABLES Luz l Result [facility] [address] [place] [address], * External clinical lab (07/18/2024) us Provider [...] LAB MICROBIOLOGY METHOD 04/09/2024 3:03 PM EST [facility] Brushing/Spatula Cervix uteri structure / Unknown 04/07/2024 10:53 AM EST 04/08/2024 6:19 AM EST Radha SYLVESTER LAB MOLECULAR DIAGNOSTICS ORDER KENNEDY Final Result [facility] [address] [place] [address], [place] [phone] * CT LUNG SCREENING LOW DOSE (11/21/2023 11:12 AM EDT) Anatomical Region Laterality Modality Computed Tomogra phy 11/21/2023 7:23 AM EDT Narrative 11/21/2023 11:12 AM EDT [facility] Diagnostic Imaging Department [address] [place] [address] Patient: SONI VALDES /Age/Sex: 1960 - 63 - F Unit#: [id number] Location/Status: SPDICATLS/REG CLI Mnemonic[facility] Order[facility] Physician: SAM ALVA MD CT Lung Screening Low Dose - 11/21/23 - [id number] Report Status:Signed EXAMINATION: CT CHEST WITHOUT CONTRAST [...] in the coronal and sagittal planes. Device: NoFlo DLP: 101 mGy-cm CTDI: 2.85 Dose optimization [...] Procedure Note Sal Huerta MD - 12/04/2023 [facility] Diagnostic Imaging Department [address] [place] [address] Patient: SONI VALDESO.B./Age/Sex: 1960 - 63 - F Unit#: [id number] Location/Status: [facility] CLI Mnemonic/Ordering Site: [facility] Ordering Physician: SAM ALVA MD CT Lung [...] in the coronal and sagittal planes. Device: Fusebiller DLP: 101 mGy-cm CTDI: 2.85 Dose optimization [...] Merline HUERTA BRET MD Dic Date/Time: 11/21/23 1054 Sign date/Time: 11/21/23 1112 Sam Alva MD IM CT PROCEDURES Final Result * Falls Risk Assessment (10/05/2023) Falls Risk Assessment abstracted us Historical Provider HEALTH MAINTENANCE Final Result * Hm Depression Screening (10/05/2023) HM Depression Screening abstracted us Historical Provider HEALTH MAINTENANCE Final Result * SCREENING [...] to have osteoporosis by WHO criteria. The [facility] Department of Internal Medicine recommends using National [...] alternative screening schedule based on amber Rodriguez., [facility] February 23, 2011 for patients [...] to have osteoporosis by WHO criteria. The [facility] Department of Internal Medicine recommendsusing National Osteoporosis [...] alternative screening schedule based on amber Rodriguez., [facility] for patients with osteopenia (based on hip BMD T-score) is as follows: * advanced osteopenia (T scores -2.00 to -2.49), BMD testing every year * moderate osteopenia (T scores -1.50 to -1.99), BMD testing every 5years mild osteopenia or normal BMD (T scores -1.50 and higher), BMD testingevery 15 years us Aaron Guerrero DO IMG DXA PROCEDURES Final Resu lt * Colonoscopy (08/25/2019) Colonoscopy no interpretation , abstracted Anatomical Region Laterality Modality Other us Historical Provider HEALTH MAINTENANCE Final Result * Hepatitis C Screening (01/12/2015) Hepatitis C Screening abstracted us Historical Provider HEALTH MAINTENANCE Final Result from Last 3 Months or Most Recently Relevant to Health Maintenance Insurance [facility] [employer] Member Subscriber Plan / Payer (Ef fective 2024-Present) Name:Soni Valdes Relation to Subscriber:Self Name:Soni Valdes Payer ID:[id number] Group ID:Not on file Type:Not on file Address: [place] [address] [address] [id number] Advance Directives Documents on File Type Date Recorded Patient Lute Packer Or Applier Expl anation Health Care Decision (hx) 12/22/2022 HE ALTH CARE PROXY Health Care Decision (hx) 12/22/2022 HE ALTH CARE PROXY Care Teams Statistics Tutor Relationship Specialty Start Date End Date Benjamin Escalera PA [address] [place] [address] PCP - General Internal Medicine 08/01/19
--- OUTSIDE RECORDS SUMMARY | 2024-08-28 12:04 | XMS_ITS ---
[facility] Name [facility] Organization Unknown Care Team Organization Name Specialty Phone Email Start Date End Da te [facility] Benjamin Escalera Primary Care 12/13/2021
== END 2024-08-28 11:29 | disposition home or self-care (01) ==
LOC: HO.HVS 11:08
PROVIDERS: PCP Physician Assistant Medical; Visit Provider Surgery Vascular Surgery
DX: I73.9 Peripheral vascular disease, unspecified (principal)
CPT/HCPCS: 99214; G2211

== ENCOUNTER → 2024-08-28 11:08 | Outpatient (BNVA) | payer OTHER, SELFPAY | PROVIDERS: PCP Physician Assistant Medical; Visit Provider Surgery Vascular Surgery | DX: I73.9 Peripheral vascular disease, unspecified (principal) | CPT/HCPCS: 99212 ==

== ENCOUNTER 2024-09-03 05:45 | Day surgery (SDC) | payer OTHER, SELFPAY ==
--- OUTSIDE RECORDS SUMMARY | 2024-08-29 07:40 | XMS_ITS | Clinical Summary ---
Author Organization 175 [facility] Address [address] [place] [address] Phone Care Team Providers Care Data Engineer Name Role Phone Benjamin sEcalera Primary Care Provider [phone] Allergies Active Allergy Reactions Criticality Noted Date [...] sterolemia,Obstru ctive sleep apnea,PVD (peripheral vascular disease) ([facility] V24),Tobacco use disorder,Chronic obstructive pulmonary disease, unspecified COPD type ([facility] V24, [facility] V28),Osteopenia, unspecified location Take 1 tablet (1 [...] Date Diagnosed Date PVD (peripheral vascular disease) ([facility] V24) 09/03/2019 Cannabis abuse 02/27/2019 Centrilobular emphysema ([facility] V24, [facility] V2 8) 02/27/2019 Dilated bile duct 03/13/2018 Overview (11/28/2023): Ada to have papillary stenosis related to remote cholecystectomy. Anxiety and depression 08/13/2017 Tobacco use disorder 08/13/2017 Overview (11/28/2023): Last Assessment & Plan: Encouraged cessation Chronic ulcer of right heel ([facility] V24, [facility] V28) 01/02/2017 Overview (11/28/2023): Underlying osteomyelitis, angioplasty with stent, 10/23/2017 Calcaneus fracture, right 11/28/2016 Overview (11/28/2023): CT scan 09/11/2016 Colon polyps 09/01/2016 Alcohol abuse, daily use 05/03/2016 Closed bimalleolar fracture of right ankle 09/29 Overview (11/28/2023): 2014 Obstructive sleep apnea 01/12/2015 COPD (chronic obstructive pu lmonary disease) ([facility] V24, [facility] V28) 10/05/2011 Osteopenia 07/28/2010 Essential hypertension, benign 03/22/2006 Overview (11/28/2023): Last Assessment & Plan: Has follow up appt with Dr. Gaona in August for med adjustment. Allergic rhinitis 03/08/2005 Hypercholesterolemia 03/08/2005 Encounters Date Type Department Care Team Description 08/14/2024 9:45 AM EDT Office Visit Adult Medicine [address] [address] Alessia Montez PA Essential hypertension, benign (Primary Dx); Stage 3a chronic kidney disease ([facility] V24, [facility] V28); Hypercholesterolemia; Anxiety and depression; Encounter for long-term (current) use of medications; Centrilobular emphysema ([facility] V24, [facility] V28); Tobacco use disorder; Alcohol abuse, daily use; PVD (peripheral vascular disease) ([facility] V24); Elevated MCV; Colon cancer screening from [...] CHOLECYSTECTOMY 1984 PROCEDURE: HISTORICAL CHOLECYSTECTOMY SECTION PROCEDURE: [place] DELIVERY ONLY; COMMENT: times 2 OTHER SURGICAL HISTORY 1987 PROCEDURE: [place] LIG/TRNSXJ FLP TUBE ABDL/VAG APPR UNI/BI KNEE SURGERY 1973 PROCEDURE: HISTORICAL KNEE SURGERY; COMMENT: left MULTIPLE TOOTH EXTRACTIONS PROCEDURE: HISTORICAL DENTAL EXTRACTION BREAST BIOPSY 2014 Right PROCEDURE: BX BREAST; PERC NEEDLE CORE W/IMAG GUID; COMMENT: b9 COLONOSCOPY 2006 PROCEDURE: HISTORICAL COLONOSCOPY; COMMENT: normal with normal random bx. UPPER GASTROINTESTINAL ENDOSCOPY 2006 PROCEDURE: [place] UPPER GI ENDOSCOPY PERFORMED; COMMENT: normal with [...] essential hypertension Chronic obstructive lung dis ease ([facility] V24, [facility] V28) 07/26/2007 DX:Chronic obstructive lung disease (HCC) COPD (chronic obstructive pu lmonary disease) ([facility] V24, [facility] V28) 10/05/2011 DX:COPD (chronic o bstructive pulmonary disease) (HCC) Obstructive sleep apnea 01/12/2015 DX:Obstr uctive sleep apnea Family History Medical History Relation Name Comments Other: HIV/AIDS Brother 1 Al Lung cancer Brother 2 Chava No Known Problems Daughter 1 No Known Problems Daughter 2 CABG Father pacemaker Diabetes Maternal Grandmother Hypertension Mother [place], cholesterol Lung cancer Sister 1 Paul Breast [...] for your loved ones. For example, child welfare worker or elderly care for an older adult? [...] Info) Description 10/27/2024 12:45 PM EDT Appointment [facility] Endoscopy [address] [place] [address] Trung Daniel MD [address] [address] 11/04/2024 9:00 AM EDT Appointment Radiology Department - [address] [phone] 11/04/2024 10:00 AM EDT Appointment Bone Density - [address] [phone] 12/05/2024 11:00 AM EDT Office Visit Adult Medicine [facility] - [address] [phone] Benjamin Escalera PA [address] [place], [place] Health Maintenance Due Date Last Done [...] Obstructive sleep apnea PVD (peripheral vascular disease) ([facility] V24) Tobacco use disorder Chronic obstructive pulmonary disease, unspecified COPD type ([facility] V24, [facility] V28) Osteopenia, unspecified location CBC AND DIFFERENTIAL Routine 08/05/2024 9:17 AM EDT Anxiety and depression Essential hypertension, benign Hypercholesterolemia Obstructive sleep apnea PVD (peripheral vascular disease) ([facility] V24) Tobacco use disorder Chronic obstructive pulmonary disease, unspecified COPD type ([facility] V24, [facility] V28) Osteopenia, unspecified location MAGNESIUM Routine 08/05/2024 9:17 AM EDT Leg cramping LIPID PANEL WITH REFLEX TO DIRECT LDL Routine 08/05/2024 9:17 AM EDT Anxiety and depression Essential hypertension, benign Hypercholesterolemia Obstructive sleep apnea PVD (peripheral vascular disease) ([facility] V24) Tobacco use disorder Chronic obstructive pulmonary disease, unspecified COPD type ([facility] V24, [facility] V28) Osteopenia, unspecified location COMPREHENSIVE METABOLIC PANEL Routine 08/05/2024 9:17 AM EDT Anxiety and depression Essential hypertension, benign Hypercholesterolemia Obstructive sleep apnea PVD (peripheral vascular disease) ([facility] V24) Tobacco use disorder Chronic obstructive pulmonary disease, unspecified COPD type ([facility] V24, [facility] V28) Osteopenia, unspecified location VITAMIN D 25 HYDROXY Routine 08/05/2024 9:17 AM EDT Anxiety and depression Essential hypertension, benign Hypercholesterolemia Obstructive sleep apnea PVD (peripheral vascular disease) ([facility] V24) Tobacco use disorder Chronic obstructive pulmonary disease, unspecified COPD type ([facility] V24, [facility] V28) Osteopenia, unspecified location IRON AND TIBC Routine 08/05/2024 9:17 AM EDT Leg cramping EXTERNAL CLINICAL LAB 07/18/2024 HPV WITH REFLEX GENOTYPE Routine 04/07/2024 10:53 [...] Modality Computed Tomogra phy [facility]ED[facility] Final Result * (ABNORMAL) Lipid panel with reflex to direct LDL (08/05/2024 9:17 AM EDT) Cholesterol 128 0 - 200 mg/dL LAB CHEMISTRY METHOD 08/05/2024 2:10 PM EDT [facility] Triglycerides 177(H) 0 - 150 mg/dL LAB CHEMISTRY METHOD 08/05/2024 2:10 PM EDT [facility] HDL 32(L) >=40 mg/dL LAB CHEMISTRY METHOD 08/05/2024 2:10 PM EDT [facility] LDL Calculated 61 0 - 100 mg/dL LAB CHEMISTRY METHOD 08/05/2024 2:10 PM EDT [facility] VLDL Cholesterol Osmar 35.4 mg/dL LAB CHEMISTRY METHOD 08/05/2024 2:10 PM EDT [facility] Non HDL Chol. (LDL+VLDL) 96 <145 mg/dL LAB CHEMISTRY METHOD 08/05/2024 2:10 PM EDT [facility] Chol/HDL Ratio 4.0 0.0 - 4.4 LAB CHEMISTRY METHOD 08/05/2024 2:10 PM EDT [facility] Blood Venous blood specimen / Unknown Venipuncture / Unknown 08/05/2024 9:17 AM EDT 08/05/2024 9:17 AM EDT Benjamin VALENCIA LAB BLOOD ORDERABLES Luz oden Result [facility] [address] [place] [address], * (ABNORMAL) CBC auto differential (08/05/2024 9:17 AM EDT) WBC 10.0 4.8 - 10.8 K/mcL LAB HEMETOLOGY METHOD 08/05/2024 11:12 AM T [facility] RBC 3.70(L) 3.80 - 4.80 M/mcL LAB HEMETOLOGY METHOD 08/05/2024 11:12 AM T [facility] Hemoglobin 11.7 11.5 - 16.0 g/dL LAB HEMETOLOGY METHOD 08/05/2024 11:12 AM [facility] Hematocrit 36.0 35.0 - 47.0 % LAB HEMETOLOGY METHOD 08/05/2024 11:12 AM T [facility] MCV 98.6(H) 79.0 - 98.0 FL LAB HEMETOLOGY METHOD 08/05/2024 11:12 AM [facility] MCH 32.1(H) 27.0 - 32.0 pcg LAB HEMETOLOGY METHOD 08/05/2024 11:12 AM [facility] MCHC 32.5 32.0 - 37.0 g/dL LAB HEMETOLOGY METHOD 08/05/2024 11:12 AM [facility] RDW 13.2 11.0 - 15.0 % LAB HEMETOLOGY METHOD 08/05/2024 11:12 AM [facility] Platelets 353 130 - 400 K/mcL LAB HEMETOLOGY METHOD 08/05/2024 11:12 AM [facility] MPV 9.2 7.0 - 11.0 FL LAB HEMETOLOGY METHOD 08/05/2024 11:12 AM [facility] NRBC 0.0 <1.0 % LAB HEMETOLOGY METHOD 08/05/2024 11:12 AM [facility] NRBC Absolute 0.00 <0.10 K/mcL LAB HEMETOLOGY METHOD 08/05/2024 11:12 AM [facility] Neutrophils Relative 65.7 % LAB HEMETOLOGY METHOD 08/05/2024 11:12 AM [facility] Lymphocytes Relative 24.1 % LAB HEMETOLOGY METHOD 08/05/2024 11:12 AM [facility] Monocytes Relative 6.7 % LAB HEMETOLOGY METHOD 08/05/2024 11:12 AM [facility] Eosinophils Relative 2.4 % LAB HEMETOLOGY METHOD 08/05/2024 11:12 AM [facility] Basophils Relative 0.5 % LAB HEMETOLOGY METHOD 08/05/2024 11:12 AM [facility] Immature Granulocytes Relative 0.6 % LAB HEMETOLOGY METHOD 08/05/2024 11:12 AM EDT [facility] Neutrophils Absolute 6.53 1.50 - 7.00 K/mcL LAB HEMETOLOGY METHOD 08/05/2024 11:12 AM EDT [facility] Lymphocytes Absolute 2.40 1.00 - 5.00 K/mcL LAB HEMETOLOGY METHOD 08/05/2024 11:12 AM EDT [facility] Monocytes Absolute 0.67 0.20 - 1.00 K/mcL LAB HEMETOLOGY METHOD 08/05/2024 11:12 AM EDT [facility] Eosinophils Absolute 0.24 0.00 - 0.50 K/mcL LAB HEMETOLOGY METHOD 08/05/2024 11:12 AM EDT [facility] Basophils Absolute 0.05 0.00 - 0.20 K/mcL LAB HEMETOLOGY METHOD 08/05/2024 11:12 AM EDT [facility] Immature Granulocytes Absolute 0.06(H) 0.00 - 0.03 K/mcL LAB [facility]EMETOLOGY [facility] Blood Venous blood specimen / Unknown Venipuncture / Unknown 08/05/2024 9:17 AM EDT 08/05/2024 9:17 AM EDT us Benjamin VALENCIA LAB BLOOD ORDERABLES Luz oden Result [facility] [address] [place] [address], * Iron and TIBC (08/05/2024 9:17 AM EDT) Iron 69 40 - 150 mcg/dL LAB CHEMISTRY METHOD 08/05/2024 2:10 PM EDT [facility] TIBC 294 250 - 450 mcg/dL LAB CHEMISTRY METHOD 08/05/2024 2:10 PM EDT [facility] Iron Saturation 23 15 - 50 % LAB CHEMISTRY METHOD 08/05/2024 2:10 PM EDT [facility] Blood Venous blood specimen / Unknown Venipuncture / Unknown 08/05/2024 9:17 AM EDT 08/05/2024 9:17 AM EDT Alessia VALENCIA LAB BLOOD ORDERABLES Final Resul t Performing Organization Address [facility] Co de Phone Number [facility] [address] [place] [address], [place] [phone] * Vitamin D 25 hydroxy (08/05/2024 9:17 AM EDT) Vit D, 25-Hydroxy 44.4 30.0 - 80.0 ng/mL LAB CHEMISTRY METHOD 08/05/2024 3:03 PM EDT [facility] Blood Venous blood specimen / Unknown Venipuncture / Unknown 08/05/2024 9:17 AM EDT 08/05/2024 9:17 AM EDT Benjamin VALENCIA LAB BLOOD ORDERABLES Luz l Result Performing Organization Address [facility]/ZIP Co de Phone Number [facility] [address] [place] [address], [place] [phone] * Magnesium (08/05/2024 9:17 AM EDT) Magnesium 1.9 1.9 - 2.6 mg/dL LAB CHEMISTRY METHOD 08/05/2024 2:00 PM EDT [facility] Blood Venous blood specimen / Unknown Venipuncture / Unknown 08/05/2024 9:17 AM EDT 08/05/2024 9:17 AM EDT Alessia VALENCIA LAB BLOOD ORDERABLES Final Resul t [facility] [address] [place] [address], * (ABNORMAL) Comprehensive metabolic panel (08/05/2024 9:17 AM EDT) Sodium 133 133 - 145 mmol/L LAB CHEMISTRY METHOD 08/05/2024 2:10 PM EDT [facility] Potassium 4.8 3.5 - 5.5 mmol/L LAB CHEMISTRY METHOD 08/05/2024 2:10 PM [facility] Chloride 100 96 - 110 mmol/L LAB CHEMISTRY METHOD 08/05/2024 2:10 PM [facility] CO2 26 21 - 32 mmol/L LAB CHEMISTRY METHOD 08/05/2024 2:10 PM [facility] Anion Gap 7 3 - 11 LAB CHEMISTRY METHOD 08/05/2024 2:10 PM [facility] Glucose 92 70 - 100 mg/dL LAB CHEMISTRY METHOD 08/05/2024 2:10 PM [facility] BUN 15 5 - 25 mg/dL LAB CHEMISTRY METHOD 08/05/2024 2:10 PM [facility] Creatinine 1.28(H) 0.50 - 1.10 mg/dL LAB CHEMISTRY METHOD 08/05/2024 2:10 PM [facility] eGFR 47(L) >=60 mL/min/1. 73m2 LAB CHEMISTRY METHOD 08/05/2024 2:10 PM [facility] Comment:Calculation based on the Chronic Kidney Disease Epidemiology Collaboration (CKD-EPI) equation refit without adjustment for race. BUN/Creatinine Ratio 11.7 LAB CHEMISTRY METHOD 08/05/2024 2:10 PM [facility] Calcium 8.8 8.5 - 10.5 mg/dL LAB CHEMISTRY METHOD 08/05/2024 2:10 PM [facility] AST (SGOT) 12 10 - 42 unit/L LAB CHEMISTRY METHOD 08/05/2024 2:10 PM EDT [facility] ALT (SGPT) 13 10 - 60 unit/L LAB CHEMISTRY METHOD 08/05/2024 2:10 PM EDT [facility] Alkaline Phosphatase 94 42 - 121 unit/L LAB CHEMISTRY METHOD 08/05/2024 2:10 PM EDT [facility] Total Protein 6.7 6.0 - 8.0 g/dL LAB CHEMISTRY METHOD 08/05/2024 2:10 PM EDT [facility] Albumin 3.5 3.2 - 5.0 g/dL LAB CHEMISTRY METHOD 08/05/2024 2:10 PM EDT [facility] Total Bilirubin 0.4 0.0 - 1.4 mg/dL LAB CHEMISTRY METHOD 08/05/2024 2:10 PM EDT [facility] Blood Venous blood specimen / Unknown Venipuncture / Unknown 08/05/2024 9:17 AM EDT 08/05/2024 9:17 AM EDT Benjamin VALENCIA LAB BLOOD ORDERABLES Luz l Result [facility] [address] [place] [address], * External clinical lab (07/18/2024) Provider [facility] LAB BLOOD ORDERABLES Fin al Result * HPV with reflex genotype (04/07/2024 10:53 AM EST) HPV Negative Negative LAB MICROBIOLOGY METHOD 04/09/2024 3:03 PM EST [facility] Brushing/Spatula Cervix uteri structure / Unknown 04/07/2024 10:53 AM EST 04/08/2024 6:19 AM EST Radha Sandoval CN LAB MOLECULAR DIAGNOSTICS ORDER KENNEDY Final Result [facility] [address] [place] [address], * CT LUNG SCREENING LOW DOSE (11/21/2023 11:12 AM EDT) Anatomical Region Laterality Modality Computed Tomogra phy 11/21/2023 7:23 AM EDT Narrative 11/21/2023 11:12 AM EDT [facility] Diagnostic Imaging Department [address] [place] [address] Patient: SONI VALDES D.O.B./Age/Sex: 1960 - 63 - F Unit#: [id number] [facility] CLI Mnemonic/Ordering Site[facility] Ordering Physician: SAM ALVA MD CT Lung Screening Low Dose - 11/21/23 - 6233 Report Status:Signed EXAMINATION: CT CHEST WITHOUT CONTRAST [...] in the coronal and sagittal planes. Device: [employer] [place] DLP: 101 mGy-cm CTDI: 2.85 Dose optimization [...] 1058 Sign date/Time: 11/21/23 1112 Procedure Note aSl Huerta MD - 12/04/2023 [facility] Diagnostic Imaging Department [address] [place] [address] Patient: ALLA VALDESI /Age/Sex: 1960 - 63 - F Unit#: [id number] Location/Status: [facility]/REG CLI Mnemonic/Ordering Site: [facility] Ordering Physician: SAM ALVA MD CT Lung Screening Low Dose - 11/21/23 - 33 Report Status:Signed EXAMINATION: CT CHEST WITHOUT CONTRAST [...] in the coronal and sagittal planes. Device: [employer] DLP: 101 mGy-cm CTDI: 2.85 Dose optimization [...] Date/Time: 11/21/23 1058 Sign date/Time: 11/21/23 1112 Sam Alva MD IMG CT PROCEDURES Final Result * Falls Risk Assessment (10/05/2023) Falls Risk Assessment abstracted Historical Provider HEALTH MAINTENANCE Final Result * Depression Screening (10/05/2023) Depression Screening abstracted Historical Provider HEALTH MAINTENANCE Final Result * [...] to have osteoporosis by WHO criteria. [facility] Department of Internal Medicine recommends using [...] FRAX. Optional alternative screening schedule based on amebr Rodriguez., [facility] February 23, 2011 for patients [...] to have osteoporosis by WHO criteria. [facility] Department of Internal Medicine recommendsusing National [...] screening schedule based on amber Rodriguez., [facility] for patients with osteopenia [...] PROCEDURES Final Resu lt * Colonoscopy (08/25/2019) [facility] Colonoscopy no interpretation , abstracted Anatomical Region Laterality Modality Other Historical Provider HEALTH MAINTENANCE Final Result * Hepatitis C Screening (01/12/2015) [facility] Hepatitis C Screening abstracted Historical Provider HEALTH MAINTENANCE Final Result from Last 3 Months or Most Recently Relevant to Health Maintenance Insurance [facility] [employer] Member Subscriber Plan / Payer (Ef fective 2024-Present) Name:Soni Valdes Relation to Subscriber:Self Name:Soni Valdes Payer ID:[id number] Group ID:Not on file Type:Not on file Address: [place] [address] [address] [phone] Advance Directives Documents on File Type Date Recorded Patient Derrick Hand Expl anation Health Care Decision (hx) 12/22/2022 [facility] Health Care Decision (hx) 12/22/2022 [facility] Care Teams Data Engineer Relationship Specialty Start Date End Date Benjamin Escalera PA [address] [place] [address] PCP - General Internal Medicine 08/01/19
[2024-09-03] VITALS (20 sets, daily range): BP systolic 155–230; BP diastolic 56–96; PULSE 65–80; RESP 10–20; TEMP 36–36.6; O2SAT 95–100; BMI 29.2
[2024-09-03 06:16] LABS: Hematocrit 34.4 % (37.0-47.0); Hemoglobin 11.9 g/dl (12.0-16.0); Imm Gran Abs Auto 0.03 X10*3/uL (0.00-0.03); Imm Gran Pct Auto 0.4 % (0.0-0.4); Lymphocytes Absolute Auto 1.6 X10*3/uL (1.2-4.9); MANUAL DIFF FLAG NO; Mean Corpuscular HGB Conc 34.6 g/dl (31.0-35.0); Mean Corpuscular Hemoglobin 31.6 pg (27.0-33.0); Mean Corpuscular Volume 91.2 fL (80.0-98.0); NRBC Abs Auto 0.000 X10*3/uL (0.0-0.012); NRBC Pct Auto 0.0 /100WBC (0.0-0.2); Platelet Count 385 X10*3/uL (160-400); Red Blood Count 3.77 X10*6/uL (4.20-5.50); White Blood Count 8.3 X10*3/uL (4.8-10.8)
[2024-09-03 06:29] LABS: Blood Urea Nitrogen 11 mg/dL (9-16); Creatinine Clr Calc Pharmacy 47.3; Estimated Glomerular Filt Rate 58
[2024-09-03] MEDS: Heparin Sodium,Porcine 10,000 UNIT/10 ML VIAL 5000 UNIT IVPUSH (08:27)
--- NOTE | 2024-09-03 09:07 | P.OP_ITS ---
Operative Note Operative Note Date of Service: 09/03/24 Narrative: Angiogram report from [facility] Preoperative diagnosis: Atherosclerosis of left lower extremity with activity limiting claudication Postoperative diagnosis: Same Procedure: 1. Ultrasound-guided right common femoral access 2. Aortogram with bilateral lower extremity runoff 3. Left distal SFA and popliteal plasty Surgeon:Moi Parikh M.D., FACS, RPVI Window Installer:None Anesthesia: Local with moderate conscious sedation. Total intraservice moderate sedation time was 48 minutes. I monitored the patient's level of consciousness and physiologic status continuously throughout the procedure. Specimens:none Drains:none Estimated blood loss: Less than 10 ml Radiation Dose: 243.2 mGy Implant: Syniverse Impact DCB 6 x 40 Indications: 64-year-old female with prior history of fem-pop bypass performed over 5 years ago presented for surveillance follow-up. On surveillance there was concern about the distal anastomotic site. She now presents for endovascular intervention The patient has signed the informed consent after reviewing risks, complications, benefits, and alternatives previously discussed with the patient. The patient was given the opportunity to ask any additional questions or voice any concerns. All questions were answered to the patient's satisfaction. Procedure in detail: Patient was brought to the angiography suite prior to which a time-out was called for patient identification and site verification. Bilateral groins were prepped and draped in the standard surgical fashion. Under ultrasound guidance right common femoral was punctured with micro puncture needle and wire. Subsequently a precision 5 Indonesian sheath was then placed. Bentson wire was advanced to the level of the aorta. 5 Indonesian Flush catheter was brought up and parked at the level of the renal arteries. Aortogram was then undertaken. Catheter was brought down to the level of the iliac bifurcation. Iliacs and runoff was performed through the flush catheter that was parked at the bifurcation and a power injection was performed to visualize bilateral runoff vessels. Subsequently the catheter was then brought in up and over to the left side SFA. We then advanced an 035 Wholey Wire down through the previous fem-pop bypass graft into the popliteal artery. At this time we administered 5000 units of systemic heparin. Up and over 6 Indonesian sheath was then placed. We did multiple orthogonal views around the knee. There was a stricture at the distal anastomosis. We 1st plasty this with a regular 6 x 40 balloon. We subsequently plasty this with a 6 x 40 drug coated balloon. This was brought into position in under 3 minutes and insufflated for a total of 3 minutes in duration. Once this was accomplished completion angiogram demonstrated good result. Catheter wire sheath was brought back to the ipsilateral side. Through the sheath we did again orthogonal views of the right lower extremity especially the distal part of the stent towards the knee. Once this was done we exchanged out for a short 6 Indonesian sheath. A 6 Indonesian CELT closure device was then placed. Patient tolerated the procedure well. Returned to recovery with stable vitals. Interpretation of films: 1. Ultrasound demonstrates appropriate femoral access site. Vessel was patent with minimal stenosis. Needle entry was visualized. Image of ultrasound was saved. 2. Aortogram demonstrates appropriate caliber aorta. Minimal disease. Appropriate take-off of the renals. 3. Iliac images demonstrate no significant disease 4. Left Leg Common femoral artery: No significant disease Profundus Femoris: No significant disease Superficial femoral artery: Jamul SFA was occluded. Fem-pop bypass graft proximal anastomosis was good distal anastomosis was stenotic Popliteal artery (p1,p2,p3): P1 segment had stenosis. P2 P3 were within normal limits Anterior tibial artery: Normal runoff all the way to the foot Peroneal artery: Diminutive but present Posterior tibial artery: Normal runoff to the foot Dorsalis pedis/plantar arch: Incomplete 5. Right Leg Common femoral artery: No significant disease Profundus Femoris: No significant disease Superficial femoral artery: Distal portion of the right SFA stent had a moderate stenosis. Popliteal artery (p1,p2,p3): P1 segment had stenosis. P2 P3 were within normal limits Anterior tibial artery: Normal runoff all the way to the foot Peroneal artery: Diminutive but present Posterior tibial artery: Normal runoff to the foot Dorsalis pedis/plantar arch: Incomplete Conclusion: 1. Successful left distal fem-pop to popliteal artery plasty. 2. Anticoagulation status: Continue aspirin and Plavix This note is constructed using voice recognition software. While every effort has been made to ensure accuracy, compliance program manager errors may have been included. Thank you for allowing me to participate in the care of your patient. Yours sincerely, Moi Parikh MD, FACS, R.P.V.I.
[2024-09-03 12:30] LABS: ACT 269 Celite s (79-173)
[2024-09-03 12:30] LABS: ACT 211 Celite s (79-173)
== END 2024-09-03 11:09 | disposition home or self-care (01) ==
PROVIDERS: PCP Physician Assistant Medical; Visit Provider Surgery Vascular Surgery
DX: I70.212 Atherosclerosis of native arteries of extremities with intermittent claudication, left leg (principal); Z95.820 Peripheral vascular angioplasty status with implants and grafts; Z98.890 Other specified postprocedural states; Z79.82 Long term (current) use of aspirin; Z79.02 Long term (current) use of antithrombotics/antiplatelets; F17.210 Nicotine dependence, cigarettes, uncomplicated
CPT/HCPCS: 36415; 37224; 76937; 82565; 84520; 85025; 85347; 99152; 99153; C1725; C1760; C1769; C1887; C1894; C2623; J1644; J2250; J3010; Q9967

== ENCOUNTER → 2024-09-03 05:45 | Outpatient (BNV) | payer OTHER, SELFPAY | PROVIDERS: PCP Physician Assistant Medical; Visit Provider Surgery Vascular Surgery | DX: I70.212 Atherosclerosis of native arteries of extremities with intermittent claudication, left leg (principal) | CPT/HCPCS: 37224; 75630; 75710; 76937; 99152 ==

== ENCOUNTER 2024-09-18 10:50 | Outpatient (AMB) | payer OTHER, SELFPAY ==
--- NOTE | 2024-09-18 11:02 | A.OFFVIS_ITS ---
Intake Visit Reasons: 2 week follow up left leg angio 09/03/24 Intake Note: Patient presents for follow up left leg angiogram performed on 09/03/24. No complaints. Allergies MIKAELA Inhibitors Allergy (Intermediate, Verified 09/18/24 11:04) hyperkalemia methadone Allergy (Mild, Verified 09/18/24 11:04) Hives atorvastatin Allergy (Unknown, Verified 09/18/24 11:04) facial swelling, rash propoxyphene (From DARVOCET-N) Allergy (Unknown, Verified 09/18/24 11:04) ITCHY RASH HPI HPI 2 week follow up left leg angio 09/03/24: Details: 64-year-old female patient presents for follow-up status post left lower extremity angiogram. Reports doing well postprocedure. She continues to smoke about a half pack per day. [facility] Surgical History S/P debridement (08/29/17) S/P debridement (04/21/17) Status post angioplasty S/P angiogram of extremity History of femoropopliteal bypass Hx of cholecystectomy Family History Father No problems noted. Mother No problems noted. Social History Are you a primary caregiver services home to a significant other at home: No Do you presently have visiting nurse or other home services: No Comment: Occas uses walker at home Patient Tobacco Use Status: Current everyday Tobacco user Tobacco use type: Cigarette Cigarettes Per Day: 8 Review of Systems Const All systems reviewed & are unremarkable except as noted in HPI and below Reports no additional complaints ENT Reports Normal hearing present Card Denies chest pain, Denies chest pain at rest, Denies chest pain with activity and Denies pedal edema Resp Denies cough GI Denies abdominal pain Musc Denies abnormal gait, Denies muscle cramps and Denies radiating pain into limb Skin/Breast Denies skin ulcer and Denies wounds Neuro Reports Normal hearing present and Denies abnormal gait Psych Reports no additional complaints Physical Exam Const General: cooperative, healthy appearing and comfortable Orientation/consciousness: oriented to person, oriented to place and oriented to time HEENT Head: Yes normal to inspection Neck Neck: Yes normal visual inspection Carotids: no bruits Chest Chest palpation & inspection: normal inspection of the chest Resp Effort & Inspection: normal respiratory effort and able to speak in complete sentences Auscultation: clear to auscultation bilaterally, no crackles, no rales, no rhonchi and no wheezes Cardio Other: Bilateral DP signals Rate: regular rate Rhythm: regular rhythm Heart sounds: S1 normal heart sound present and S2 normal heart sound present Bruits: no carotid bruits Peripheral pulses: Peripheral pulses 2+ throughout GI Inspection: Yes normal to inspection Skin Wounds: no wounds Hair: normal Neuro General: oriented to person, oriented to place and oriented to time Cranial nerves: Yes CN's II-XII intact bilaterally and Yes Normal hearing present Cognition (Neuro): normal cognition Motor exam (neuro): 5/5 motor strength present throughout Extrem Other: venous exam: No significant superficial varicosities or spider telangiectasias, minimal edema General: No clubbing, No cyanosis and No edema Psych Appearance: grossly normal Mental Status: mental status grossly normal Speech and movement: Normal speech and movement present Assessment & Plan Assessment & Plan (1) PAD (peripheral artery disease): Comment: 09/03/2024 - left distal SFA and popliteal plasty. (plasty of distal anastomosis) February 2018 - left femoral to above knee popliteal bypass June 2017 - right SFA stent Code(s): I73.9 - Peripheral vascular disease, unspecified Category: Medical Plan: In short patient has done well status post endovascular intervention. I did review the pathophysiology of peripheral vascular disease with the patient. In addition we did discuss routine conservative measures including a healthy diet and the importance of exercise and ambulation. We did discuss risk factor modification. The patient will continue to to follow-up with surveillance follow-up in approximately 3 months. Thank you for allowing us to participate in this patient's care. If there are any questions or concerns please do not hesitate to contact us. Orders: Orders US arterial duplex LE BI 3 Months I73.9 - Peripheral vascular disease, unspecified Coding Level of Care Code Est Pt Level 4 (48651) Diagnoses PAD (peripheral artery disease) I73.9
--- OUTSIDE RECORDS SUMMARY | 2024-09-18 11:59 | XMS_ITS | Clinical Summary ---
Author Organization [facility] Address [address] [place] [address] Phone Care Team Providers Care Charge Account Authorizer Name Role Phone Benjamin Escalera Primary Care Provider [phone] Allergies Active Allergy Reactions Criticality Noted Date [...] Active medical supply, miscellaneous (MISCELLANEOUS MEDICAL SUPPLY MISC) SPACER DEVICE- Use with inhaler 0 Active [...] g 5 Active LORazepam (ATIVAN) 1 mg tabletIndications: Anxiety and depression,Essenti al hypertension, benign,Hypercholes terolemia,Obstruct joleen sleep apnea,PVD (peripheral vascular disease) ([facility] V24),Tobacco use disorder,Chronic obstructive pulmonary disease, unspecified COPD type (CMS/HCC V24, CMS/[facility] V28),Osteopenia, unspecified location Take 1 tablet (1 mg total) by mouth every 8 (eight) hours if needed for anxiety. Max Daily Amount: 3 mg 84 tablet 5 Active spironolactone (ALDACTONE) 25 mg tablet Take 1 tablet (25 mg total) by mouth 1 (one) time each day. 90 tablet 1 5 Active Active Problems Problem Noted Date Diagnosed Date PVD (peripheral vascular disease) ([facility] [place] [facility] V24) 09/03/2019 Cannabis abuse 02/27/2019 Centrilobular emphysema ([facility] [place] [facility] V24, [facility] V2 8) 02/27/2019 Dilated bile duct 03/13/2018 Overview (11/28/2023): [place] to have papillary stenosis related to remote cholecystectomy. Anxiety and depression 08/13/2017 Tobacco use disorder 08/13/2017 Overview (11/28/2023): Last Assessment & Plan: Encouraged cessation Chronic ulcer of right heel ([facility] V24, [facility]/ [facility] V28) 01/02/2017 Overview (11/28/2023): Underlying osteomyelitis, angioplasty with stent, 10/23/2017 Calcaneus fracture, right 11/28/2016 Overview (11/28/2023): CT scan 09/11/2016 Colon polyps 09/01/2016 Alcohol abuse, daily use 05/03/2016 Closed bimalleolar fracture of right ankle 09/29 Overview (11/28/2023): 2014 Obstructive sleep apnea 01/12/2015 COPD (chronic obstructive pu lmonary disease) ([facility] [place] V24, [facility] V28) 10/05/2011 Osteopenia 07/28/2010 Essential hypertension, benign 03/22/2006 Overview (11/28/2023): Last Assessment & Plan: Has follow up appt with Dr. Gaona in August for med adjustment. Allergic rhinitis 03/08/2005 Hypercholesterolemia 03/08/2005 Encounters Date Type Department Care Team Description 08/14/2024 9:45 AM EDT Office Visit Adult Medicine [address] [phone] Alessia Montez PA Essential hypertension, benign (Primary Dx); Stage 3a chronic kidney disease ([facility] V24, [facility] V28); Hypercholesterolemia; Anxiety and depression; Encounter for long-term (current) use of medications; Centrilobular emphysema (CMS/[facility] V24, [facility] V28); Tobacco use disorder; Alcohol abuse, daily use; PVD (peripheral vascular disease) ([facility] V24); Elevated MCV; Colon cancer screening from [...] CHOLECYSTECTOMY 1984 PROCEDURE: HISTORICAL CHOLECYSTECTOMY SECTION PROCEDURE: TX DELIVERY ONLY; COMMENT: times 2 OTHER SURGICAL HISTORY 1987 PROCEDURE: TX LIG/TRNSXJ FLP TUBE ABDL/VAG APPR UNI/BI KNEE SURGERY 1973 PROCEDURE: HISTORICAL KNEE SURGERY; COMMENT: left MULTIPLE TOOTH EXTRACTIONS PROCEDURE: HISTORICAL DENTAL EXTRACTION BREAST BIOPSY 2014 Right PROCEDURE: BX BREAST; PERC NEEDLE CORE W/IMAG GUID; COMMENT: b9 COLONOSCOPY 2006 PROCEDURE: HISTORICAL COLONOSCOPY; COMMENT: normal with normal random bx. UPPER GASTROINTESTINAL ENDOSCOPY 2006 PROCEDURE: TX UPPER GI ENDOSCOPY PERFORMED; COMMENT: normal with [...] essential hypertension Chronic obstructive lung dis ease ([facility] V24, [facility] V28) 07/26/2007 DX:Chronic obstructive lung disease (HCC) COPD (chronic obstructive pu lmonary disease) ([facility] V24, [facility] V28) 10/05/2011 DX:COPD (chronic o bstructive pulmonary disease) (HCC) Obstructive sleep apnea 01/12/2015 DX:Obstr uctive sleep apnea Family History Medical History Relation Name Comments Other: HIV/AIDS Brother 1 Al Lung cancer Brother 2 Chava No Known Problems Daughter 1 No Known Problems Daughter 2 CABG Father pacemaker Diabetes Maternal Grandmother Hypertension Mother [place], cholesterol Lung cancer Sister 1 Paul Breast [...] Date Smoking Tobacco: Every Day Cigarettes 0.5 41.1 Started: 08/23/1983 Smokeless Tobacco: Never Tobacco Cessation:Ready [...] care for your loved ones. For example, director child development center or elderly care for an older adult? [...] Info) Description 10/27/2024 12:[address] [facility] [address] [place] [id number] Trung Daniel MD [address] [facility] [address] [place] [address] Najma Franklin, WASHING MACHINE LOADER [address] [place] [address] 11/04/2024 9:00 AM EDT Appointment Radiology Department - [address] [phone] 11/04/2024 10:00 AM EDT Appointment Bone Density - [address] [phone] 12/05/2024 11:00 AM EDT Office Visit [facility] - [address] [phone] Benjamin Escalera PA [address] [place], [place] Health Maintenance Due Date Last Done [...] Obstructive sleep apnea PVD (peripheral vascular disease) ([facility] V24) Tobacco use disorder Chronic obstructive pulmonary disease, unspecified COPD type ([facility]/HCC V24, CMS/HCC V28) Osteopenia, unspecified location CBC AND DIFFERENTIAL Routine 08/05/2024 9:17 AM EDT Anxiety and depression Essential hypertension, benign Hypercholesterolemia Obstructive sleep apnea PVD (peripheral vascular disease) ([facility]/HCC V24) Tobacco use disorder Chronic obstructive pulmonary disease, unspecified COPD type ([facility]/HCC V24, CMS/HCC V28) Osteopenia, unspecified location MAGNESIUM Routine 08/05/2024 9:17 AM EDT Leg cramping LIPID PANEL WITH REFLEX TO DIRECT LDL Routine 08/05/2024 9:17 AM EDT Anxiety and depression Essential hypertension, benign Hypercholesterolemia Obstructive sleep apnea PVD (peripheral vascular disease) ([facility] V24) Tobacco use disorder Chronic obstructive pulmonary disease, unspecified COPD type ([facility]/HCC V24, CMS/HCC V28) Osteopenia, unspecified location COMPREHENSIVE METABOLIC PANEL Routine 08/05/2024 9:17 AM EDT Anxiety and depression Essential hypertension, benign Hypercholesterolemia Obstructive sleep apnea PVD (peripheral vascular disease) ([facility]/HCC V24) Tobacco use disorder Chronic obstructive pulmonary disease, unspecified COPD type ([facility]/HCC V24, CMS/HCC V28) Osteopenia, unspecified location VITAMIN D 25 HYDROXY Routine 08/05/2024 9:17 AM EDT Anxiety and depression Essential hypertension, benign Hypercholesterolemia Obstructive sleep apnea PVD (peripheral vascular disease) ([facility]/HCC V24) Tobacco use disorder Chronic obstructive pulmonary disease, unspecified COPD type ([facility]/HCC V24, CMS/HCC V28) Osteopenia, unspecified location IRON [...] Anatomical Region Laterality Modality Computed Tomogra phy [facility] PROCED[facility] Final Result * (ABNORMAL) Lipid panel with reflex to direct LDL (08/05/2024 9:17 AM EDT) Cholesterol 128 0 - 200 mg/dL LAB CHEMISTRY METHOD 08/05/2024 2:[address] [facility] Triglycerides 177(H) 0 - 150 mg/dL LAB CHEMISTRY METHOD 08/05/2024 2:[address] [facility] HDL 32(L) >=40 mg/dL LAB CHEMISTRY METHOD 08/05/2024 2:[address] [facility] LDL Calculated 61 0 - 100 mg/dL LAB CHEMISTRY METHOD 08/05/2024 2:[address] [facility] VLDL Cholesterol Osmar 35.4 mg/dL LAB CHEMISTRY METHOD 08/05/2024 2:[address] [facility] Non HDL Chol. (LDL+VLDL) 96 <145 mg/dL LAB CHEMISTRY METHOD 08/05/2024 2:[address] [facility] Chol/HDL Ratio 4.0 0.0 - 4.4 LAB CHEMISTRY METHOD 08/05/2024 2:[address] [facility] Blood Venous blood specimen / Unknown Venipuncture / Unknown 08/05/2024 9:17 AM EDT 08/05/2024 9:17 AM EDT Benjamin VALENCIA LAB BLOOD ORDERABLES Luz oden Result [facility] [address] [place] [address], [place] [phone] * (ABNORMAL) CBC auto differential (08/05/2024 9:17 AM EDT) WBC 10.0 4.8 - 10.8 K/mcL LAB HEMETOLOGY METHOD 08/05/2024 11:12 AM [facility] RBC 3.70(L) 3.80 - 4.80 M/mcL LAB HEMETOLOGY METHOD 08/05/2024 11:12 AM [facility] Hemoglobin 11.7 11.5 - 16.0 g/dL LAB HEMETOLOGY METHOD 08/05/2024 11:12 AM [facility] Hematocrit 36.0 35.0 - 47.0 % LAB HEMETOLOGY METHOD 08/05/2024 11:12 AM [facility] MCV 98.6(H) 79.0 - 98.0 FL LAB HEMETOLOGY METHOD 08/05/2024 11:12 AM [facility] MCH 32.1(H) 27.0 - 32.0 pcg LAB HEMETOLOGY METHOD 08/05/2024 11:12 AM [facility] MCHC 32.5 32.0 - 37.0 g/dL LAB HEMETOLOGY METHOD 08/05/2024 11:12 AM [facility] RDW 13.2 11.0 - 15.0 % LAB HEMETOLOGY METHOD 08/05/2024 11:12 AM [facility] Platelets 353 130 - 400 K/mcL LAB HEMETOLOGY METHOD 08/05/2024 11:12 AM [facility] MPV 9.2 7.0 - 11.0 FL LAB HEMETOLOGY METHOD 08/05/2024 11:12 AM [facility] NRBC 0.0 <1.0 % LAB HEMETOLOGY METHOD 08/05/2024 11:12 AM [facility] NRBC Absolute 0.00 <0.10 K/mcL LAB HEMETOLOGY METHOD 08/05/2024 11:12 AM [facility] Neutrophils Relative 65.7 % LAB HEMETOLOGY METHOD 08/05/2024 11:12 AM [facility] Lymphocytes Relative 24.1 % LAB HEMETOLOGY METHOD 08/05/2024 11:12 AM [facility] Monocytes Relative 6.7 % LAB HEMETOLOGY METHOD 08/05/2024 11:12 AM [facility] Eosinophils Relative 2.4 % LAB HEMETOLOGY METHOD 08/05/2024 11:12 AM [facility] Basophils Relative 0.5 % LAB HEMETOLOGY METHOD 08/05/2024 11:12 AM [facility] Immature Granulocytes Relative 0.6 % LAB HEMETOLOGY METHOD 08/05/2024 11:12 AM [facility] Neutrophils Absolute 6.53 1.50 - 7.00 K/mcL LAB HEMETOLOGY METHOD 08/05/2024 11:12 AM [facility] Lymphocytes Absolute 2.40 1.00 - 5.00 K/mcL LAB HEMETOLOGY METHOD 08/05/2024 11:[address] [facility] Monocytes Absolute 0.67 0.20 - 1.00 K/[facility] LAB HEMETOLOGY METHOD 08/05/2024 11:[address] [facility] Eosinophils Absolute 0.24 0.00 - 0.50 K/[facility] LAB HEMETOLOGY METHOD 08/05/2024 11:[address] [facility] Basophils Absolute 0.05 0.00 - 0.20 K/[facility] LAB HEMETOLOGY METHOD 08/05/2024 11:[address] [facility] Immature Granulocytes Absolute 0.06(H) 0.00 - 0.03 K/[facility] LAB HEMETOLOGY METHOD 08/05/2024 11:[address] [facility] Blood Venous blood specimen / Unknown Venipuncture / Unknown 08/05/2024 9:17 AM EDT 08/05/2024 9:17 AM EDT Benjamin VALENCIA LAB BLOOD ORDERABLES Luz oden Result [facility] [address] [place] [address], * Iron and TIBC (08/05/2024 9:17 AM EDT) Iron 69 40 - 150 mcg/dL LAB CHEMISTRY METHOD 08/05/2024 2:[address] [facility] TIBC 294 250 - 450 mcg/dL LAB CHEMISTRY METHOD 08/05/2024 2:[address] [facility] Iron Saturation 23 15 - 50 % LAB CHEMISTRY METHOD 08/05/2024 2:[address] [facility] Blood Venous blood specimen / Unknown Venipuncture / Unknown 08/05/2024 9:17 AM EDT 08/05/2024 9:17 AM EDT Alessia VALENCIA LAB BLOOD ORDERABLES Final Resul t Performing Organization Address [facility] Co de Phone Number [facility] [address] [place] [address], [place] [phone] * Vitamin D 25 hydroxy (08/05/2024 9:17 AM EDT) [facility] Vit D, 25-Hydroxy 44.4 30.0 - 80.0 ng/mL LAB CHEMISTRY METHOD 08/05/2024 3:[address] [facility] Blood Venous blood specimen / Unknown Venipuncture / Unknown 08/05/2024 9:17 AM EDT 08/05/2024 9:17 AM EDT Benjamin VALENCIA LAB BLOOD ORDERABLES Luz l Result Performing Organization Address [facility] de Phone Number [facility] [address] [place] [address], * Magnesium (08/05/2024 9:17 AM EDT) [facility] Magnesium 1.9 1.9 - 2.6 mg/dL LAB CHEMISTRY METHOD 08/05/2024 2:[address] [facility] Blood Venous blood specimen / Unknown Venipuncture / Unknown 08/05/2024 9:17 AM EDT 08/05/2024 9:17 AM EDT Alessia VALENCIA LAB BLOOD ORDERABLES Final Resul t Performing Organization Address [facility] Co de Phone Number [facility] [address] [place] [address], [place] [phone] * (ABNORMAL) Comprehensive metabolic panel (08/05/2024 9:17 AM EDT) [facility] Sodium 133 133 - 145 mmol/L LAB CHEMISTRY METHOD 08/05/2024 2:10 PM [facility] Potassium 4.8 3.5 - 5.5 mmol/L LAB CHEMISTRY METHOD 08/05/2024 2:10 PM [facility] Chloride 100 96 - 110 mmol/L LAB CHEMISTRY METHOD 08/05/2024 2:10 PM [facility] CO2 26 21 - 32 mmol/L LAB CHEMISTRY METHOD 08/05/2024 2:10 PM [facility] Anion Gap 7 3 - 11 LAB CHEMISTRY METHOD 08/05/2024 2:10 PM [facility] Glucose 92 70 - 100 mg/dL LAB CHEMISTRY METHOD 08/05/2024 2:10 PM [facility] BUN 15 5 - 25 mg/dL LAB CHEMISTRY METHOD 08/05/2024 2:10 PM [facility] Creatinine 1.28(H) 0.50 - 1.10 mg/dL LAB CHEMISTRY METHOD 08/05/2024 2:10 PM [facility] eGFR 47(L) >=60 mL/min/1. 73m2 LAB CHEMISTRY METHOD 08/05/2024 2:10 PM [facility] Comment:Calculation based on the Chronic Kidney Disease Epidemiology Collaboration (CKD-EPI) equation refit without adjustment for race. BUN/Creatinine Ratio 11.7 LAB CHEMISTRY METHOD 08/05/2024 2:10 PM [facility] Calcium 8.8 8.5 - 10.5 mg/dL LAB CHEMISTRY METHOD 08/05/2024 2:10 PM [facility] AST (SGOT) 12 10 - 42 unit/L LAB CHEMISTRY METHOD 08/05/2024 2:10 PM [facility] ALT (SGPT) 13 10 - 60 unit/L LAB CHEMISTRY METHOD 08/05/2024 2:10 PM [facility] Alkaline Phosphatase 94 42 - 121 unit/L LAB CHEMISTRY METHOD 08/05/2024 2:[address] [facility] Total Protein 6.7 6.0 - 8.0 g/dL LAB CHEMISTRY METHOD 08/05/2024 2:[address] [facility] Albumin 3.5 3.2 - 5.0 g/dL LAB CHEMISTRY METHOD 08/05/2024 2:[address] [facility] Total Bilirubin 0.4 0.0 - 1.4 mg/dL LAB CHEMISTRY METHOD 08/05/2024 2:[address] [facility] Blood Venous blood specimen / Unknown Venipuncture / Unknown 08/05/2024 9:17 AM EDT 08/05/2024 9:17 AM EDT Benjamin VALENCIA LAB BLOOD ORDERABLES Luz l Result Performing Organization Address City/[facility]/ZIP Co de Phone Number [facility] [address] [place] [address], [place] [phone] * External clinical lab (07/18/2024) Provider [facility] LAB BLOOD ORDERABLES Fin al Result * HPV with reflex genotype (04/07/2024 10:53 AM EST) HPV Negative Negative LAB MICROBIOLOGY METHOD 04/09/2024 3:[address] [facility] Brushing/Spatula Cervix uteri structure / Unknown 04/07/2024 10:53 AM EST 04/08/2024 6:19 AM EST Radha Sandoval CNM LAB MOLECULAR DIAGNOSTICS ORDER KENNEDY Final Result [facility] [address] [place] [address], [place] [phone] * CT LUNG SCREENING LOW DOSE (11/21/2023 11:12 AM EDT) Anatomical Region Laterality Modality Computed Tomogra phy 11/21/2023 7:23 AM EDT Narrative 11/21/2023 11:12 AM EDT [facility] Diagnostic Imaging Department [address] [place] [address] Patient: ALLA VALDESSimeon Barajas/Age/Sex: 1960 - 63 - F Unit#: [id number] Location/Status: SPDICATLS/REG CLI Mnemonic/Ordering Site: [facility] Ordering Physician: SAM ALVA MD [...] in the coronal and sagittal planes. Device: Innometrix Incer DLP: 101 mGy-cm CTDI: 2.85 Dose optimization [...] Procedure Note Sal Huerta MD - 12/04/2023 [facility] Diagnostic Imaging Department [address] [place] [address] Patient: SONI VALDES /Age/Sex: 1960 - 63 - F Unit#: [id number] Location/Status: SPDICATLS/REG CLI Mnemonic/Ordering Site: [facility] Ordering Physician: SAM ALVA MD [...] in the coronal and sagittal planes. Device: [employer] [place] DLP: 101 mGy-cm CTDI: 2.85 Dose optimization [...] 11/21/23 1058 Sign date/Time: 11/21/23 1112 Result [facility] Sam Alva MD IMG CT PROCEDURES Final Result * Falls Risk Assessment (10/05/2023) Falls Risk Assessment abstracted Result [facility] Provider HEALTH MAINTENANCE Final Result * Depression Screening (10/05/2023) Depression Screening abstracted Result [facility] Provider HEALTH MAINTENANCE Final Result * [...] to have osteoporosis by WHO criteria. [facility] Department of Internal Medicine recommends [...] alternative screening schedule based on amber Rodriguez., [facility] February 23, 2011 for patients with [...] to have osteoporosis by WHO criteria. [facility] Department of Internal Medicine recommendsusing [...] PROCEDURES Final Resu lt * Colonoscopy (08/25/2019) [facility] Colonoscopy no interpretation , abstracted Anatomical Region Laterality Modality Other Historical Provider HEALTH MAINTENANCE Final Result * Hepatitis C Screening (01/12/2015) [facility] Hepatitis C Screening abstracted Historical Provider HEALTH MAINTENANCE Final Result from Last 3 Months or Most Recently Relevant to Health Maintenance Insurance [facility] [employer] Member Subscriber Plan / Payer (Ef fective 2024-Present) Name:Soni Valdes Relation to Subscriber:Self Name:Soni Valdes Payer ID:[id number] Group ID:Not on file Type:Not on file Address: [place] [address] [address] [id number] Advance Directives Documents on File Type Date Recorded Patient [employer] Expl anation Health Care Decision (hx) 12/22/2022 HE [facility]TH CARE PROXY Health Care Decision (hx) 12/22/2022 HE ALTH CARE PROXY Care Teams Charge Account Authorizer Relationship Specialty Start Date End Date Benjamin Escalera PA [address] [place] [id number] PCP - General Internal Medicine 08/01/19
== END 2024-09-18 11:27 | disposition home or self-care (01) ==
LOC: HO.HVS 10:50
PROVIDERS: PCP Physician Assistant Medical; Visit Provider Surgery Vascular Surgery
DX: I73.9 Peripheral vascular disease, unspecified (principal)
CPT/HCPCS: 99214

== ENCOUNTER → 2024-09-18 10:50 | Outpatient (BNVA) | payer OTHER, SELFPAY | PROVIDERS: PCP Physician Assistant Medical; Visit Provider Surgery Vascular Surgery | DX: I73.9 Peripheral vascular disease, unspecified (principal) | CPT/HCPCS: 99212 ==